=== PATIENT | female | born 1935 | race Caucasian/White ===

== ENCOUNTER → 2018-05-22 11:06 | Outpatient (CLI) | payer MEDICARE, SELFPAY ==
[2018-05-22 11:51] LABS: Erythrocyte Sedimentation Rate 40 mm/hr (0-30)
[2018-05-22 11:54] LABS: Absolute Lymphocyte Count 2.55 X10^3/ul (0.83-4.51); Basophil# 0.01 X10^3/uL; Basophil% 0.2 % (0-1); Eosinophil# 0.06 X10^3/uL; Hematocrit 37.7 % (37-47); Hemoglobin 12.9 g/dl (12.0-15.0); Lymphocyte # 2.55 X10^3/ul (4.0); Lymphocyte % 41.4 % (19-41); Mean Corp Hgb Conc 34.2 g/gl (32-36); Mean Corpuscular Hgb 31.5 pg (27.0-32.0); Mean Platelet Vol. 9.6 fl (6.2-12.0); Monocyte# 0.55 X10^3/uL; Monocyte% 8.9 % (0-10); Neutrophil # 2.98 X10^3/uL (2.7-7.7); Neutrophil % 48.3 % (47-70); Platelet Count 264 K/mm3 (150-450); RBC Distribution Width CV 12.4 % (11.6-14.6); RBC Distribution Width SD 40.5 fl (35.1-43.9); White Blood Count 6.2 K/mm3 (4.4-11.0)
[2018-05-22 11:55] LABS: POSITIVE COUNT NO; POSITIVE DIFFERENTIAL NO; POSITIVE MORPHOLOGY NO
[2018-05-22 12:33] LABS: AST(SGOT) 21 U/L (15-37); Alanine Aminotransfer ALT/SGPT 26 U/L (13-56); Albumin, Serum 3.7 g/dL (3.2-5.0); Alkaline Phosphatase 69 U/L (45-117); Anion Gap 10 (5-15); BUN 23 mg/dL (7-18); BUN/Creat Ratio 23.4 RATIO (10-20); Calcium,Total 9.2 mg/dL (8.5-10.1); Chloride 99 mmol/L (98-107); Creatinine, Serum 0.98 mg/dL (0.55-1.02); EST Glomerular Filtration Rate 58 mL/min (>60); Est Glom Filt Rate - Afr Amer 70 mL/min (>60); Globulin 3.7 g/dL (2.2-4.2); Glucose 140 mg/dL (74-106); Potassium 3.8 mmol/L (3.5-5.1); Protein, Total 7.4 g/dL (6.4-8.2); Sodium Level 137 mmol/L (136-145); Uric Acid 9.6 mg/dL (2.6-6.0)
== END ==
PROVIDERS: Family Provider Student in an Organized Health Care Education/Training Program; PCP Student in an Organized Health Care Education/Training Program; Visit Provider Podiatrist
DX: M10.9 Gout, unspecified (principal); M79.673 Pain in unspecified foot
CPT/HCPCS: 36415; 80053; 84550; 85025; 85652

== ENCOUNTER → 2019-08-30 13:17 | Outpatient (CLI) | payer MEDICARE, SELFPAY ==
--- NOTE | 2019-08-30 13:22 | STEWCON_ITS ---
Reason For Study: HTN, Dyspnea Stress Results Protocol: Dobutamine Stress Echo With Definity Maximum Predicted HR: 137 bpm Target HR: 116 bpm % Maximum Predicted HR: 88 % DurationHeart Rate Stage (mm:ss) (bpm) BP Comment Baseline 57 137/62No Chest Pain; 7 ML Diluted Definity Given DSE 10 MCG 4:46 57 108/60No Chest Pain DSE 20 MCG 3:00 61 122/60No Chest Pain DSE 30 MCG 4:15 121 167/68No Chest Pain; Atropine 0.25 MG IVP Recovery 96 113/57No Chest Pain Stress Duration: 12:01 mm:ss Maximum Stress HR: 121 bpm METS: 1 Baseline Echocardiogram Findings The estimated ejection fraction is 65 %. Stress Echo Wall motion Data Resting WM Intermediate WM Stress WM Resting Wall Motion Wall Motion Stress No regional wall motion No regional wall motion abnormalities noted. abnormalities noted. EKG Data The baseline ECG displays normal sinus rhythm. The patient was titrated from 10 mcg to a maximun of 30 mcg of dobutamine during the stress. The maximum heart rate attained was 134 beats per minute. This was 97% of maximum predicted heart rate. During dobutamine infusion, there were no ST or T wave changes noted to suggest ischemia. No clinical angina was noted. Interpretation Summary The estimated ejection fraction is 65 %. Normal, adequate, dobutamine echocardiogram. Negative for ischemia by EKG and echocardiographic criteria. No anginal symptoms noted. Rare PVCs noted. Appropriate blood pressure response to dobutamine. Test terminated due to the attainment of target heart rate. Final LVEF is 75%. Decreased sensitivity due to poor echo windows requiring Definity agent. Patient tolerated procedure well. No complications. The study was technically difficult. Contrast injection was performed. Ordering Physician: Robles Duran Referring Physician: Nico Gamboa Performed By: Gurmeet Antoine RCS
== END ==
PROVIDERS: Family Provider Student in an Organized Health Care Education/Training Program; PCP Student in an Organized Health Care Education/Training Program; Referring Provider Internal Medicine Cardiovascular Disease; Visit Provider Internal Medicine Cardiovascular Disease
DX: R06.02 Shortness of breath (principal); I10 Essential (primary) hypertension; E78.5 Hyperlipidemia, unspecified
CPT/HCPCS: 93017; 93350; J7040; Q9957; A4216; C8928

== ENCOUNTER 2020-06-05 17:52 | Emergency (ER) | payer MEDICARE, SELFPAY ==
[2020-06-05 17:54] VITALS: BP 154/63; PULSE 72; PULSE 73; RESP 16; RESP 18; TEMP 36.4; O2SAT 96; BMI 27.6
--- NOTE | 2020-06-05 18:16 | EKG12_ITS ---
Test Reason : DYSRHYTHMIA Blood Pressure : / mmHG Vent. Rate : 066 BPM Atrial Rate : 066 BPM P-R Int : 200 ms QRS Dur : 086 ms QT Int : 414 ms P-R-T Axes : 065 002 059 degrees QTc Int : 434 ms Normal sinus rhythm Normal ECG Confirmed by SHAZIA CORNELIUS, ALENA ([id number]), material expeditor RYLIE VELEZ ([id number]) on 06/12/2020 1:11:06 PM Referred By: Confirmed By:KAYLEEN MCCRAY MD
--- NOTE | 2020-06-05 18:27 | ED.DCSUM_ITS ---
- ER Visit Summary Date of Service: 06/05/20 Chief Complaint: Fatigue History of Present Illness: The patient is a 85 F presenting with fatigue. She states this has been ongoing for the past 2 weeks. She has shortness of breath which is worse in the morning and improves throughout the day. She denies chest pain. Denies fever or cough. Denies lightheadedness or syncope. She is currently taking care of her who was just recently discharged from the hospital. She feels that she may be worn out because of this. She denies other complaints. Physical Examination: Vitals are stable. Patient is afebrile. Alert no acute distress. HEENT exam is unremarkable. Neck is supple. Lungs are clear and equal bilaterally. Heart is regular rate and rhythm. Abdomen is soft nontender nondistended. Extremities symmetric edema, normal pulses Skin is warm and dry. No focal neurologic deficit. Remainder of exam is unremarkable. Emergency Department Course and Treatment: EKG is sinus rhythm rate of 66 with no acute ischemic changes. Chest x-ray shows no acute process. Bilateral lower extremity venous Doppler shows no evidence of DVT. CBC, chemistries unremarkable. Urinalysis unremarkable. Troponin is negative. D-dimer negative. Patient was able to ambulate in the ED with a pulse ox of 93% on room air. On reevaluation, patient is resting comfortably. She is advised to follow-up with her primary care physician. Advised return to the ED for worsening complaints. Disposition: Discharge home Impression: Fatigue This note was generated with myTips dictation software. It may contain incorrect words, spelling, and punctuation that were not noted in review of the chart prior to signing ED Disposition - Plan for ED Patient: Referrals: Nico Gamboa DO [Primary Care Provider] -
[2020-06-05 18:57] VITALS: O2SAT 98
--- NOTE | 2020-06-05 19:05 | RAD_ITS ---
STUDY: X-RAY CHEST REASON FOR EXAM: Female, 85 years old. INCREASING FATIGUE AND SOB TECHNIQUE: Single AP portable view of the chest. COMPARISON: EKG leads overlie the chest FINDINGS: The lungs are clear and expanded. There is no demonstrated pleural abnormality. Normal size heart. Normal mediastinum and jazmin. Normal visualized pulmonary arteries. Normal visualized aortic arch and descending thoracic aorta. There is a dextroscoliosis of the thoracic spine. Normal visualized ribs, clavicles, and shoulders. There is no demonstrated abnormality of the visualized soft tissue structures of the upper abdomen. RAD/Chest 1 View (Portable) IMPRESSION: No acute findings, dextroscoliosis Electronically Signed: Bryon Borden MD at 19:20 EDT , Service support ,
--- NOTE | 2020-06-05 19:12 | US_ITS ---
STUDY: VENOUS DOPPLER ULTRASOUND - BILATERAL LOWER EXTREMITIES REASON FOR EXAM: Female, 85 years old. SWOLLEN ANKLES- OFF AND ON FOR YEARS NOT SWOLLEN TODAY PER PT TECHNIQUE: Ultrasound evaluation of the deep vein system to include whalen-scale imaging and compression was performed. Whalen-scale imaging and Doppler sonographic evaluation, including duplex spectral analysis and qualitative color flow sonography, was performed. COMPARISON: None. FINDINGS: RIGHT LEG Common Femoral Vein: Normal compression, spontaneity and augmentation. Normal color Doppler. Common Femoral Vein/Greater Saphenous Junction: Normal compression, spontaneity and augmentation. Normal color Doppler. Deep Femoral Vein: Normal compression, spontaneity and augmentation. Normal color Doppler. Femoral Proximal: Normal compression, spontaneity and augmentation. Normal color Doppler. Femoral Middle: Normal compression, spontaneity and augmentation. Normal color Doppler. Femoral Distal: Normal compression, spontaneity and augmentation. Normal color Doppler. Popliteal Vein: Normal compression, spontaneity and augmentation. Normal color Doppler. Posterior Tibial Vein: Normal compression, spontaneity and augmentation. Normal color Doppler. Peroneal Vein: Normal compression, spontaneity and augmentation. Normal color Doppler. LEFT LEG Common Femoral Vein: Normal compression, spontaneity and augmentation. Normal color Doppler. Common Femoral Vein/Greater Saphenous Junction: Normal compression, spontaneity and augmentation. Normal color Doppler. Deep Femoral Vein: Normal compression, spontaneity and augmentation. Normal color Doppler. Femoral Proximal: Normal compression, spontaneity and augmentation. Normal color Doppler. Femoral Middle: Normal compression, spontaneity and augmentation. Normal color Doppler. Femoral Distal: Normal compression, spontaneity and augmentation. Normal color Doppler. Popliteal Vein: Normal compression, spontaneity and augmentation. Normal color Doppler. Posterior Tibial Vein: Normal compression, spontaneity and augmentation. Normal color Doppler. Peroneal Vein: Normal compression, spontaneity and augmentation. Normal color Doppler. US/Venous Duplex Imag/Aroldo Extrem IMPRESSION: No demonstrated deep venous thrombosis of bilateral lower extremities. Electronically Signed: Jose Booker MD at 20:07 EDT , Service support ,
[2020-06-05] MEDS: Aspirin 81 MG TAB.CHEW 324 MG PO (19:16)
[2020-06-05 19:19] LABS: Absolute Lymphocyte Count 2.48 X10^3/uL (0.83-4.51); Absolute Neutrophil Count 3.6 X10^3/uL (2.0-7.7); Basophil# 0.05 X10^3/uL; Basophil% 0.7 % (0-1); Eosinophil# 0.55 X10^3/uL; Eosinophils% 7.3 % (0-5); Hematocrit 40.1 % (37-47); Hemoglobin 13.6 g/dL (12.0-15.0); Lymphocyte # 2.48 X10^3/ul (4.0); Lymphocyte % 32.8 % (19-41); Mean Corp Hgb Conc 33.9 g/dL (32-36); Mean Corpuscular Hgb 30.7 pg (27.0-32.0); Mean Corpuscular Volume 90.5 fL (81-99); Mean Platelet Vol. 9.5 fl (6.2-12.0); Monocyte# 0.85 X10^3/uL; Monocyte% 11.2 % (0-10); NRBC Flagged by Analyzer 0 % (0-5); Neutrophil % 47.6 % (47-70); Platelet Count 311 K/mm3 (150-450); RBC Distribution Width CV 11.6 % (11.6-14.6); RBC Distribution Width SD 38.5 fl (35.1-43.9); Red Blood Count 4.43 M/mm3 (4.2-5.4); White Blood Count 7.6 K/mm3 (4.4-11.0)
[2020-06-05 19:44] LABS: Anion Gap 5 (5-15); BUN 21 mg/dL (7-18); BUN/Creat Ratio 22.1 RATIO (10-20); Calcium,Total 9.2 mg/dL (8.5-10.1); Chloride 103 mmol/L (98-107); Creatinine, Serum 0.95 mg/dL (0.55-1.02); EST Glomerular Filtration Rate 60 mL/min (>60); Est Glom Filt Rate - Afr Amer 72 mL/min (>60); Estimated Creatinine Clearance 34.86 ml/min; Glucose 103 mg/dL (74-106); Potassium 3.5 mmol/L (3.5-5.1); Sodium Level 139 mmol/L (136-145)
[2020-06-05 19:48] LABS: BNP,B-Type NATRIURETIC PEPTIDE 54.1 pg/mL (0-100)
[2020-06-05 19:58] VITALS: O2SAT 95
[2020-06-05 20:07] VITALS: BP 153/69; PULSE 97; RESP 16; O2SAT 97
[2020-06-05 20:10] LABS: Bacteria 0 SEEN /hpf (None Seen); Mucous, Urine 0 SEEN /hpf (<or=2+); Red Blood Cells-Urine 0 SEEN /hpf (0-5); Squamous Epithelial Cells - UA 0 SEEN /hpf (5-10); White Blood Cells 0 SEEN /hpf (0-5)
[2020-06-05 20:11] LABS: Color, Urine Yellow (Yellow); Glucose, Dipstick Normal (Normal); Ketone-Dipstick Negative (Negative); Leukocyte Esterase-Dipstick 25 /ul (Negative); Nitrite-Dipstick Negative (Negative); Occult Blood-Urine Negative /ul (Negative); Protein-Dipstick Negative (Negative); Specific Gravity, Urine 1.015 (1.002-1.030); Urine Bilirubin Dipstick Negative (Negative); Urine Clarity Clear (Clear); Urine Urobilinogen Normal (Normal)
[2020-06-05 20:42] LABS: D-Dimer Quantitative (DVT/PE) 0.49 FEU/ug/m (0.27-0.49)
[2020-06-05 21:12] VITALS: BP 141/73; PULSE 68; RESP 16; O2SAT 98
--- NOTE | 2020-06-05 21:13 | ED.DEP ---
ED Disposition - Plan for ED Patient: Instructions: ED Weakness [facility] Referrals: Nico Gamboa DO [Primary Care Provider] -
== END 2020-06-05 21:32 | disposition home or self-care (01) ==
LOC: ED 18:25
PROVIDERS: Emergency Provider Emergency Medicine; PCP Student in an Organized Health Care Education/Training Program
DX: R53.83 Other fatigue (principal); R06.00 Dyspnea, unspecified; I10 Essential (primary) hypertension; E78.00 Pure hypercholesterolemia, unspecified; J45.909 Unspecified asthma, uncomplicated; Z79.82 Long term (current) use of aspirin; Z79.899 Other long term (current) drug therapy; M79.89 Other specified soft tissue disorders
CPT/HCPCS: 71045; 80048; 81001; 83880; 84484; 85025; 85379; 93005; 93970; 99285; A4216

== ENCOUNTER → 2023-07-18 | Outpatient (CLI) | payer SELFPAY ==
--- NOTE | 2023-07-18 13:07 | CT_ITS ---
STUDY: CT CHEST WITHOUT CONTRAST REASON FOR EXAM: Female, 88 years old. SCREENING. Cardiac over read examination. RADIATION DOSAGE (If Supplied By Facility): CTDIvol = ( 12.19 ) mGy, DLP = ( 195.04 ) mGycm TECHNIQUE: Transaxial imaging was performed without the administration of intravenous contrast material. Individualized dose optimization techniques were used for this CT. COMPARISON: No relevant priors. FINDINGS: CHEST The lungs are normal. There is no demonstrated pleural abnormality. There are calcifications of the coronary arteries. There are multiple small lymph nodes within the mediastinum, which are normal in size and morphology most compatible with reactive lymph hyperplasia. Normal hilar regions. Normal unenhanced pulmonary arteries. There is atherosclerotic calcification of the aortic arch. There are multi-level degenerative changes of the thoracic spine. Dextroscoliosis. Fatty infiltration of the liver. CT/Limited Chest CT Cardiac Only IMPRESSION: Coronary artery calcification. Electronically Signed: Huang Davis MD at 14:36 EDT ,
--- NOTE | 2023-07-18 16:25 | CCTA_ITS ---
Calcium Scoring Date of Study:: 07/18/23 Indications Indications: Family history of coronary artery disease Coronary Calcium Scoring: High-resolution Computed Tomographic imaging of the chest was performed on [07/18/2023], with particular attention paid to the coronary arteries. Images from the examination were analyzed for the presence and extent of coronary artery calcification , using coronary calcium quantification software. The pat ient tolerated the procedure well and there were no complications. The results of the coronary calcification analysis are provided below. Findings Coronary Artery Left Main (LM): 0 Left Anterior Descending (LAD): 365 Left Circumflex (LCX): 47 Right Coronary Artery (RCA): 474 Total Agatston Score: 886 Percentile Rankinth percentile Calcium Scoring Interpretation: Different methods to categorize the overall amount of coronary plaque. Overall amount CAC SIS Visual of coronary plaque P1 Mild -100 <2 1-2 vessels with mild amount of plaque P2 Moderate 101-300 3-4 1-2 vessels with moderate amount, 3 vessels with mild amount of plaque P3 Severe 301-999 5-7 3 vessels with moderate amount, 1 vessel with severe amount of plaque P4 Extensive >1000 >8 2-3 vessels with severe amount of plaque Calcium Score: Severe: 3 vessels w/moderate amount, 1 vessel w/severe amt of plaque Conclusion: Moderate amount of atherosclerotic plaquing noted especially in the left anterior descending artery and the right coronary artery.
== END | disposition home or self-care (01) ==
LOC: CT 13:05
PROVIDERS: PCP Student in an Organized Health Care Education/Training Program; Referring Provider Student in an Organized Health Care Education/Training Program; Visit Provider Student in an Organized Health Care Education/Training Program
DX: Z13.6 Encounter for screening for cardiovascular disorders (principal); I25.10 Atherosclerotic heart disease of native coronary artery without angina pectoris
CPT/HCPCS: 75571; 76380

== ENCOUNTER → 2023-08-20 | Outpatient (CLI) | payer MEDICARE, SELFPAY ==
--- NOTE | 2023-08-20 09:50 | RAD_ITS ---
STUDY: X-RAY CHEST REASON FOR EXAM: Female, 88 years old. Preprocedural evaluation. TECHNIQUE: Frontal and lateral views of the chest. COMPARISON: May 2020. FINDINGS: Stable cardiomegaly, aortic tortuosity with calcification, mild hyperinflation, postsurgical changes with clips in the left breast and left axilla and marked thoracolumbar scoliosis with diffuse spondylosis. No acute or emergent finding No abnormality of the visualized soft tissue structures of the upper abdomen. RAD/Chest PA and Lateral IMPRESSION: Stable chest with no acute or active cardiopulmonary disease. Electronically Signed: Amarjit Davenport MD at 12:15 EST ,
[2023-08-20 10:44] LABS: Absolute Neutrophil Count 4.1 X10^3/uL (2.0-7.7); Basophil# 0.05 X10^3/uL; Basophil% 0.5 % (0-1); Eosinophil# 0.62 X10^3/uL; Eosinophils% 6.7 % (0-5); Hemoglobin 14.6 g/dL (12.0-15.0); Lymphocyte % 39.9 % (19-41); Mean Corp Hgb Conc 33.2 g/dL (32-36); Mean Corpuscular Hgb 30.5 pg (27.0-32.0); Mean Corpuscular Volume 91.9 fL (81-99); Mean Platelet Vol. 9.9 fl (6.2-12.0); Monocyte# 0.81 X10^3/uL; Monocyte% 8.7 % (0-10); NRBC Flagged by Analyzer 0 % (0-5); Neutrophil # 4.07 X10^3/uL (2.7-7.7); Platelet Count 352 K/mm3 (150-450); RBC Distribution Width CV 12.6 % (11.6-14.6); RBC Distribution Width SD 42.6 fl (35.1-43.9); Red Blood Count 4.79 M/mm3 (4.2-5.4); White Blood Count 9.3 K/mm3 (4.4-11.0)
[2023-08-20 10:57] LABS: Anion Gap 8 (5-15); BUN 24 mg/dL (7-18); BUN/Creat Ratio 24.6 RATIO (10-20); Calcium,Total 9.4 mg/dL (8.5-10.1); Chloride 98 mmol/L (98-107); Creatinine, Serum 0.98 mg/dL (0.55-1.02); EST Glomerular Filtration Rate 57 mL/min (>60); Est Glom Filt Rate - Afr Amer 69 mL/min (>60); Glucose 129 mg/dL (74-106); Potassium 4.2 mmol/L (3.5-5.1); Sodium Level 137 mmol/L (136-145)
--- OUTSIDE RECORDS SUMMARY | 2023-10-03 15:24 | XMS RPT_ITS | CCD ---
Author Name Unknown Address [id number] [place] [address] Organization [facility] Care Team Providers Care Marketing Director Assisted Living Name Role Phone Nico Vargas DO Primary Care Provider NICO VARGAS DO Primary Care Physician ARIEL YU DO Attending Unavailable NICO VARGAS DO Primary Care Unavailable Nico Vargas DO Primary Care Provider NICO VARGAS Referring Unavailable VARGAS, NICO L Primary Care Unavailable ZURAWICK, MACIEL Attending Unavailable VARGAS, NICO L Primary Care Unavailable VARGAS, NICO L Primary Care Unavailable VARGAS, NICO L Attending Unavailable BARON, MACIEL Attending Unavailable VARGAS, NICO L Primary Care Unavailable VARGAS, NICO L Primary Care Unavailable ZURAWICK, MACIEL Referring Unavailable VARGAS, NICO L Primary Care Unavailable ZURAWICK, MACIEL Referring Unavailable VARGAS, NICO L Primary Care Unavailable VARGAS, NICO L Referring Unavailable VARGAS, NICO L Primary Care Unavailable ZURAWICK, MACIEL Referring Unavailable ZURAWICK, MACIEL Referring Unavailable VARGAS, NICO L Primary Care Unavailable ZURAWICK, MACIEL Referring Unavailable VARGAS, NICO L Primary Care Unavailable VARGAS, NICO L Primary Care Unavailable VARGAS, NICO L Attending Unavailable VARGAS, NICO L Primary Care Unavailable ZURAWICK, MACIEL Attending Unavailable ZURAWICK, MACIEL Attending Unavailable VARGAS, NICO L Primary Care Unavailable ZURSHAUNCK, MACIEL Referring Unavailable VARGAS, NICO L Primary Care Unavailable CAROL GARCIA Attending Unavailable VARGAS, NICO Fran Primary Care Unavailable CAROL GARCIA Referring Unavailable VARGAS, NICO Fran Primary Care Unavailable VARGAS, NICO L Attending Unavailable NICO VARGAS Primary Care Unavailable NICO VARGAS Referring Unavailable NICO VARGAS Primary Care Unavailable Allergies Allergy Classification Reported Allergen(s) Allergy Type Date of Onset Reaction(s) Facility (20 sources) quinapril; Translations: [QUINAPRIL] Drug Allergy 01-13-2012 Cough [facility] Work Phone: (20 sources) Simvastatin; Translations: [simvastatin] Drug Allergy 08-20-2007 Intolerance [facility] Work Phone: Medications Current Medications Medication Drug Class(es) Dates Sig (Normalized) Sig (Original) [id number] 200 actuat albuterol 0.09 mg/actuat metered dose inhaler (20 sources) beta2-Adrenergic Agonist Start: 05-22-2023 take 2 puff(s) by inhalation every four hours as needed for wheezing Proventil HFA MDI (90 mcg/inh) inhalation aerosol 2 puff(s), Inhalation, q4h, PRN as needed for wheezing, # 6.7 gram(s), 0 Refill(s) Start Date: 05/22/23 Status: Ordered Completed/Discontinued Medications Medication Drug Class(es) Dates Sig (Normalized) Sig (Original) aspirin 81 mg delayed release oral tablet (20 sources) Platelet Aggregation Inhibitor, Nonsteroidal Anti-inflammatory Drug take 1 tablet by mouth once daily aspirin, enteric coated (ASPIRIN, ENTERIC COATED) 81 mg EC tablet Take 81 mg by mouth once daily. 0 Active Problems Active Problems Problem Classification Problem Date Documented Da te Episodic/Chronic Abdominal pain (1 source) Pelvic and perineal pain; Translations: [Pelvic and perineal pain] Onset: 05-22-2023 Episodic Anxiety disorders (20 sources) Generalized anxiety disorder; Translations: [Generalized anxiety disorder] Onset: 01-19-2019 01-19-2019 Chronic Chronic kidney disease (3 sources) Chronic kidney disease stage 3A ; Translations: [Stage 3a chronic kidney disease (HCC)] Onset: 09-02-2023 09-02-2023 Chronic Coronary atherosclerosis and other heart disease (6 sources) Coronary atherosclerosis; Translations: [Atherosclerotic heart disease of [place] coronary artery without angina pectoris] Onset: 09-02-2023 09-01-2023 Chronic Diabetes mellitus with complications (6 sources) Hyperlipidemia; Translations: [Type 2 diabetes mellitus with other specified complication] Onset: 09-02-2023 09-02-2023 Chronic Diabetes mellitus without complication (20 sources) Type 2 diabetes mellitus without complication; Translations: [Type 2 diabetes mellitus without complications] Onset: 07-22-2018 Chronic Disorders of lipid metabolism (20 sources) Pure hypercholesterolem ia; Translations: [Pure hypercholesterolem ia, unspecified] Onset: 12-10-2005 Chronic Essential hypertension (20 sources) Benign essential hypertension; Translations: [Essential (primary) hypertension] Onset: 12-10-2005 Chronic Gout and other crystal arthropathies (20 sources) Gout; Translations: [Gout, unspecified] Onset: 07-22-2018 07-22-2018 Chronic Heart valve disorders (20 sources) Mitral valve disorder; Translations: [Rheumatic mitral valve disease, unspecified] Onset: 07-22-2018 07-22-2018 Chronic Mood disorders (20 sources) Dysthymia; Translations: [Dysthymic disorder] Onset: 07-22-2018 07-22-2018 Chronic Nonmalignant breast conditions (2 sources) Lump in upper inner quadrant of left breast; Translations: [Unspecified lump in the left breast, upper inner quadrant] 08-27-2023 Episodic Nutritional deficiencies (20 sources) Vitamin D deficiency; Translations: [Vitamin D deficiency, unspecified] Onset: 08-28-2021 08-28-2021 Chronic Other circulatory disease (3 sources) Disorder of carotid artery; Translations: [Disorder of arteries and arterioles, unspecified] Onset: 09-02-2023 09-02-2023 Chronic Other connective tissue disease (3 sources) Pain in right foot; Translations: [Pain in right foot] Episodic Other connective tissue disease (1 source) Pain in right foot; Translations: [Foot pain, right] Onset: 09-24-2023 Episodic Other lower respiratory disease (2 sources) Dyspnea; Translations: [Shortness of breath] Episodic Other lower respiratory disease (1 source) Cough; Translations: [Acute cough] Episodic Other non-traumatic joint disorders (20 sources) Arthropathy of multiple joints; Translations: [Arthropathy, unspecified] Onset: 07-22-2018 07-22-2018 Chronic Other skin disorders (1 source) Mass of thoracic structure; Translations: [Localized swelling, mass and lump, trunk] 09-01-2023 Episodic Residual codes; unclassified (20 sources) Obstructive sleep apnea syndrome; Translations: [Obstructive sleep apnea (adult) (pediatric)] Onset: 06-26-2013 04-08-2017 Chronic Urinary tract infections (1 source) Recurrent urinary tract infection; Translations: [Urinary tract infection, site not specified] Episodic Past or Other Problems Problem Classification Problem Date Documented Da te Episodic/Chronic Allergic reactions (2 sources) Contact dermatitis; Translations: [Unspecified contact dermatitis, unspecified cause] Onset: 03-26-2023 Episodic Cancer of breast (20 sources) History of malignant neoplasm of breast; Translations: [Personal history of malignant neoplasm of breast] Onset: 08-07-2015 06-12-2020 Episodic Cardiac dysrhythmias (20 sources) Palpitations; Translations: [Palpitations] Onset: 02-12-2021 02-12-2021 Episodic Conditions associated with dizziness or vertigo (20 sources) Lightheadedness; Translations: [Dizziness and giddiness] Onset: 02-12-2021 02-12-2021 Episodic Malaise and fatigue (20 sources) Fatigue; Translations: [Other fatigue] Onset: 08-28-2021 08-28-2021 Episodic Other connective tissue disease (20 sources) Swelling of lower limb; Translations: [Other specified soft tissue disorders] Onset: 08-02-2020 08-02-2020 Episodic Other ear and sense organ disorders (20 sources) Eczema of external auditory canal; Translations: [Acute eczematoid otitis externa, bilateral] Onset: 01-19-2019 01-19-2019 Episodic Other inflammatory condition of skin (20 sources) Intertrigo; Translations: [Erythema intertrigo] Onset: 08-02-2020 08-02-2020 Episodic Other lower respiratory disease (20 sources) Dyspnea on exertion; Translations: [Other forms of dyspnea] Onset: 02-04-2023 Episodic Other lower respiratory disease (1 source) Shortness of breath; Translations: [SOB (shortness of breath)] Onset: 02-24-2023 Episodic Other lower respiratory disease (1 source) Other forms of dyspnea; Translations: [ELIZABETH (dyspnea on exertion)] Onset: 02-04-2023 Episodic Other non-traumatic joint disorders (13 sources) Shoulder pain; Translations: [Pain in right shoulder] Onset: 08-02-2020 08-02-2020 Episodic Other non-traumatic joint disorders (20 sources) Pain in right knee; Translations: [Pain in joint, lower leg] Onset: 08-28-2021 08-28-2021 Episodic Other non-traumatic joint disorders (17 sources) Pain in right shoulder; Translations: [Pain in joint, shoulder region] Onset: 08-02-2020 08-02-2020 Episodic Other non-traumatic joint disorders (10 sources) Chronic pain of right upper limb; Translations: [Pain in right shoulder] Onset: 05-20-2023 05-20-2023 Episodic Other screening for suspected conditions (not mental disorders or infectious disease) (20 sources) Thyroid function tests abnormal; Translations: [Abnormal results of thyroid function studies] Onset: 01-19-2019 01-19-2019 Episodic Skin and subcutaneous tissue infections (3 sources) Cellulitis of skin; Translations: [Cellulitis, unspecified] Onset: 01-06-2023 Episodic Spondylosis; intervertebral disc disorders; other back problems (10 sources) Chronic thoracic back pain; Translations: [Pain in thoracic spine] Onset: 05-20-2023 05-20-2023 Episodic Results Test Name Value Interpretation Reference Range Facil ity Vital Signs Date Time Vital Sign Value Performing Clinician Facility 09-01-2023 10:33-0500 Body temperature 97 [degF] Nico Vargas DO Work Phone: [facility] 09-01-2023 10:33-0500 Body weight 66.68 kg Nico Vargas DO Work Phone: [facility] 09-01-2023 10:33-0500 Diastolic blood pressure 60 mm[Hg] Nico Vargas DO Work Phone: [facility] 09-01-2023 10:33-0500 Heart rate 60 /min Nico Vargas DO Work Phone: [facility] 09-01-2023 10:33-0500 Respiratory rate 20 /min Nico Vargas DO Work Phone: [facility] 09-01-2023 10:33-0500 Systolic blood pressure 100 mm[Hg] Nico Vargas DO Work Phone: [facility] 08-27-2023 12:57-0500 Body weight 68.04 kg Maciel Reynaga MATERIALS CLERK.SLD TEACHER Work Phone: [facility] 08-27-2023 12:57-0500 Diastolic blood pressure 62 mm[Hg] Maciel Reynaga MATERIALS CLERK.SLD TEACHER Work Phone: [facility] 08-27-2023 12:57-0500 Heart rate 72 /min Maciel Reynaga MATERIALS CLERK.SLD TEACHER Work Phone: [facility] 08-27-2023 12:57-0500 Respiratory rate 12 /min Maciel Reynaga MATERIALS CLERK.SLD TEACHER Work Phone: [facility] 08-27-2023 12:57-0500 Systolic blood pressure 136 mm[Hg] Maciel Reynaga MATERIALS CLERK.SLD TEACHER Work Phone: [facility] 05-22-2023 06:01-0400 Body height 157.5 cm ARIEL REICHFIELD DO [facility] 05-22-2023 06:01-0400 Body temperature 97.7 [degF] ARIEL REICHFIELD DO [facility] 05-22-2023 06:01-0400 Body weight 66 kg ARIEL REICHFIELD DO [facility] 05-22-2023 06:01-0400 Diastolic Blood Pressure Non-Invasive 72 1 ARIEL REICHFIELD DO [facility] 05-22-2023 06:01-0400 Heart rate 76 /min ARIEL REICHFIELD DO [facility] 05-22-2023 06:01-0400 Respiratory rate 20 /min ARIEL REICHFIELD DO [facility] 05-22-2023 06:01-0400 Systolic Blood Pressure Non-Invasive 144 1 ARIEL REICHFIELD DO [facility] 05-20-2023 09:07-0400 Body temperature 97.3 [degF] Nico Vargas DO Work Phone: [facility] 05-20-2023 09:07-0400 Body weight 67.13 kg Nico Vargas DO Work Phone: [facility] 05-20-2023 09:07-0400 Diastolic blood pressure 60 mm[Hg] Nico Vargas DO Work Phone: [facility] 05-20-2023 09:07-0400 Heart rate 60 /min Nico Vargas DO Work Phone: [facility] 05-20-2023 09:07-0400 Respiratory rate 20 /min Nico Vargas DO Work Phone: [facility] 05-20-2023 09:07-0400 Systolic blood pressure 100 mm[Hg] Nico Vargas DO Work Phone: [facility] 03-26-2023 13:07-0400 Diastolic blood pressure 58 mm[Hg] Carol Haagen MATERIALS CLERK.SLD TEACHER Work Phone: [facility] 03-26-2023 13:07-0400 Heart rate 66 /min Carol Haagen MATERIALS CLERK.SLD TEACHER Work Phone: [facility] 03-26-2023 13:07-0400 Respiratory rate 16 /min Carol Haagen MATERIALS CLERK.SLD TEACHER Work Phone: [facility] 03-26-2023 13:07-0400 SaO2% (BldA) [Mass fraction] 96 % Carol Haagen MATERIALS CLERK.SLD TEACHER Work Phone: [facility] 03-26-2023 13:07-0400 Systolic blood pressure 106 mm[Hg] Carol Haagen MATERIALS CLERK.SLD TEACHER Work Phone: [facility] 01-06-2023 09:15-0400 Diastolic blood pressure 58 mm[Hg] Maciel Reynaga MATERIALS CLERK.SLD TEACHER Work Phone: [facility] 01-06-2023 09:15-0400 Systolic blood pressure 110 mm[Hg] Maciel Reynaga MATERIALS CLERK.SLD TEACHER Work Phone: [facility] 01-06-2023 09:10-0400 Body height 157.5 cm Maciel Reynaga MATERIALS CLERK.SLD TEACHER Work Phone: [facility] 01-06-2023 09:10-0400 Body weight 68.04 kg Maciel Reynaga MATERIALS CLERK.SLD TEACHER Work Phone: [facility] 01-06-2023 09:10-0400 Heart rate 70 /min Maciel Reynaga MATERIALS CLERK.SLD TEACHER Work Phone: [facility] 01-06-2023 09:10-0400 Respiratory rate 16 /min Maciel Reynaga MATERIALS CLERK.SLD TEACHER Work Phone: [facility] 01-06-2023 09:10-0400 SaO2% (BldA) [Mass fraction] 93 % Maciel Reynaga MATERIALS CLERK.SLD TEACHER Work Phone: [facility] 01-01-2023 09:06-0400 Body temperature 97.59 [degF] Maciel Reynaga MATERIALS CLERK.SLD TEACHER Work Phone: [facility] 01-01-2023 09:06-0400 Body weight 68.22 kg Maciel Reynaga MATERIALS CLERK.SLD TEACHER Work Phone: [facility] 01-01-2023 09:06-0400 Diastolic blood pressure 68 mm[Hg] Maciel Reynaga MATERIALS CLERK.SLD TEACHER Work Phone: [facility] 01-01-2023 09:06-0400 Heart rate 76 /min Maciel Reynaga MATERIALS CLERK.SLD TEACHER Work Phone: [facility] 01-01-2023 09:06-0400 Respiratory rate 16 /min Maciel Reynaga MATERIALS CLERK.SLD TEACHER Work Phone: [facility] 01-01-2023 09:06-0400 Systolic blood pressure 126 mm[Hg] Maciel Reynaga MATERIALS CLERK.SLD TEACHER Work Phone: [facility] 08-07-2022 09:04-0500 Body temperature 96.8 [degF] Nico Vargas DO Work Phone: [facility] 08-07-2022 09:04-0500 Body weight 68.04 kg Nico Vargas DO Work Phone: [facility] 08-07-2022 09:04-0500 Diastolic blood pressure 70 mm[Hg] Nico Vargas DO Work Phone: [facility] 08-07-2022 09:04-0500 Heart rate 68 /min Nico Vargas DO Work Phone: [facility] 08-07-2022 09:04-0500 Respiratory rate 16 /min Nico Vargas DO Work Phone: [facility] 08-07-2022 09:04-0500 Systolic blood pressure 138 mm[Hg] Nico Vargas DO Work Phone: [facility] 04-15-2022 10:08-0400 Body weight 66.95 kg Maciel Zurawick MATERIALS CLERK.SLD TEACHER Work Phone: [facility] 04-15-2022 10:08-0400 Diastolic blood pressure 62 mm[Hg] Maciel Zurawick MATERIALS CLERK.SLD TEACHER Work Phone: [facility] 04-15-2022 10:08-0400 Heart rate 72 /min Maciel Zurawick MATERIALS CLERK.SLD TEACHER Work Phone: [facility] 04-15-2022 10:08-0400 Respiratory rate 14 /min Maciel Zurawick MATERIALS CLERK.SLD TEACHER Work Phone: [facility] 04-15-2022 10:08-0400 Systolic blood pressure 110 mm[Hg] Maciel Zurawick MATERIALS CLERK.SLD TEACHER Work Phone: [facility] 02-04-2022 09:46-0400 Body temperature 97 [degF] Nico Vargas DO Work Phone: [facility] 02-04-2022 09:46-0400 Body weight 67.59 kg Nico Vargas DO Work Phone: [facility] 02-04-2022 09:46-0400 Diastolic blood pressure 60 mm[Hg] Nico Vargas DO Work Phone: [facility] 02-04-2022 09:46-0400 Heart rate 64 /min Nico Vargas DO Work Phone: [facility] 02-04-2022 09:46-0400 Respiratory rate 16 /min Nico Vargas DO Work Phone: [facility] 02-04-2022 09:46-0400 Systolic blood pressure 110 mm[Hg] Nico Vargas DO Work Phone: [facility] Encounters Encounter Date Encounter Type Care Provider Facility Start: 09-24-2023 End: 09-25-2023 ambulatory NICO VARGAS Facility:[facility] Start: 09-04-2023 Telephone encounter Maciel nichols MATERIALS CLERK.SLD TEACHER Work Phone: [facility] [place] Procedures Date Procedure Procedure Detail Performing Clinician Start: 02-24-2023 Myocardial spect mul tiple studies Maciel Reynaga MATERIALS CLERK.SLD TEACHER Work Phone: Start: 01-01-2023 Urnls dip stick/tabl et rgnt auto w/o microscopy Maciel Reynaga MATERIALS CLERK.SLD TEACHER Work Phone: Plan of Treatment Date Care Activity Detail Author Start: 05-15-2027 Urine microalbumin profile [facility] Start: 08-27-2024 RSV Vaccine (1 - 1-d ose 60+ series) RSV Vaccine (1 - 1-dose 60+ series) [facility] Immunizations Immunization Date Immunization Notes Care Provider Meagan ratliff 07-16-2022 influenza virus vacc ine, unspecified formulation Nico Vargas DO Work Phone: [facility] 07-03-2020 influenza, high dose seasonal, preservative-free Nico Vargas DO Work Phone: [facility] Work Phone: 06-23-2019 influenza, high dose seasonal, preservative-free Nico Vargas DO Work Phone: [facility] 10-12-2018 zoster vaccine recombinant Nico Vargas DO Work Phone: [facility] Work Phone: 08-12-2018 zoster vaccine recombinant Nico Vargas DO Work Phone: [facility] Work Phone: 06-23-2018 influenza, high dose seasonal, preservative-free Nico Vargas DO Work Phone: [facility] 05-15-2017 tetanus toxoid, redu jessi diphtheria toxoid, and acellular pertussis vaccine, adsorbed Nico Vargas DO Work Phone: [facility] 05-06-2017 influenza, high dose seasonal, preservative-free Nico Vargas DO Work Phone: [facility] 08-23-2015 pneumococcal conjuga te vaccine, 13 valent Nico Vargas DO Work Phone: [facility] Work Phone: 06-21-2015 influenza, high dose seasonal, preservative-free Nico Vargas DO Work Phone: [facility] 07-15-2014 influenza, seasonal, injectable Nico Vargas DO Work Phone: [facility] 07-15-2014 Seasonal, trivalent, recombinant, injectable influenza vaccine, preservative free Nico Vargas DO Work Phone: [facility] 06-22-2013 influenza virus vacc ine, unspecified formulation Nico Vargas DO Work Phone: [facility] 02-05-2013 zoster vaccine, live Nico Vargas DO Work Phone: [facility] Work Phone: 06-22-2012 influenza virus vacc ine, unspecified formulation Nico Vargas DO Work Phone: [facility] Work Phone: 07-07-2006 tetanus and diphther ia toxoids, adsorbed, preservative free, for adult use (2 Lf of tetanus toxoid and 2 Lf of diphtheria toxoid) Nico Vargas DO Work Phone: [facility] 09-22-2004 pneumococcal polysaccharide vaccine, 23 guillermina Vargas DO Work Phone: [facility] Work Phone: Payers Date Payer Category Payer Medicare A[employer] MEDICARE A ETNA MEDICARE PPO [id number] 2021-Present [phone] [address] [place] [address] PPO [id number] 2021 Medicare A[employer] MEDICARE A ETNA MEDICARE PPO [id number] 2021-Present [phone] [address] [place] [address] PPO [id number] 2021 Private Health Insurance 101 [id number] 2011 Medicare AETNA MEDICARE A ETNA MEDICARE PPO [id number] 2011-Present [phone] [address] [place] [address] PPO [id number] 1935 Unknown [id number] Social History Date Type Detail Facility [facility]: [facility] Start: 08-28-2021 End: 09-02-2023 Alcohol intake Current non-drinker of alcohol (finding) [facility] Start: 1935 Sex Assigned At Female C [facility] Start: 01-25-2022 End: 08-07-2022 Exposure to SARS-CoV-2 (event) Not sure [facility] Work Phone: Start: 06-24-2011 Tobacco use and exposure Smokeless tobacco non-user [facility] Start: 02-04-2023 End: 03-26-2023 History of Social function [facility] Start: 02-04-2023 End: 03-26-2023 Tobacco use panel [facility] Adult Depression Screening Assessment 0 [facility] Start: 06-22-2019 Gender identity Identifies as female gender (finding) [facility] Medical Equipment Procedure Code Equipment Code Equipment Origin al Text Equipment Identifier Dates Start: 04-15-2017 End: 03-31-2023 Functional Status Date Assessment Result Facility [facility]-22-2023 [facility] Functional Status Standard Safet y ID band on, Allergy Band on, Call device within reach, Bed in low position, Safety level maintained [facility] Mental Status Date Assessment Result Facility 05-22-2023 Mental Status Orientation Oriented x 4 [facility] 05-22-2023 Mental Status [facility] Clinical Notes 08-02-2020 to 09-24-2023 Telephone Encounter - Lauren Barragan Ma - 09/04/2023 3:25 PM ESTTelephone Encounter - Maciel Reynaga APRN.CNP - 09/04/2023 3:23 PM Nico Garcia DO - 09/02/2023 7:45 AM EST Note Date & Type Note Facility 09-24-2023 Note HNO ID: [id number] Author: Hanna Denise RT(R) Service: Radiology Author Type: Technologist Type: Progress Notes Filed: 09/24/2023 2:58 PM Note Text: Radiology Service Progress Note PATIENT NAME: Martha Hung DATE OF SERVICE: September 24, 2023 TIME: 2:50 PM PATIENT IDENTITY VERIFICATION COMPLETED USING TWO (2) IDENTIFIERS: Name and Date of confirmed by patient verbally. FALL SCREENING: Has the patient had 2 falls in the last year or 1 fall with injury or currently using an Ambulatory Assistive Device (Walker, Cane, Wheelchair, Crutches, etc.)? No PATIENT GENDER DATA: Female. status: : No status: NO. PATIENT RELEVANT IMPLANT DATA REVIEWED: Not Applicable RADIOLOGY DEPARTMENT: General X-ray: Exam(s) Completed: Lower Extremity X-Ray(s): Ankle, Left PERIPHERAL IV DATA: Not applicable SIGNED BY: RT Christos(R) September 24, 2023 2:50 PM [facility] 09-24-2023 Note HNO ID: [id number] Author: Maciel Reynaga APRN.SLD TEACHER Service: ? Author Type: Nurse Practitioner Type: Progress Notes Filed: 09/24/2023 3:05 PM Note Text: Chief Complaint Patient presents with: lft foot pain: Started last Friday , feels like gout HPI Martha Hung is a 88 year old female who presents here today for Above Complaints. Martha is an established patient of Dr. Vargas, and myself. Concerns today... Gout/ankle flare-up --- L foot/ankle swelling, pain, mild redness, and slightly warm to touch x 5 days. Minimal relief with ice and elevation. Denies any fall or injury. Hx of gout to numerous joints. Last uric acid was done 3 years ago and was elevated significantly. Pt is not on any allopurinol or preventative medications for gout. Last flare up was > 1 year ago per pt. Leaving for [place] for a few months in about 2 weeks. Does have follow-up with cardiology prior to leaving. No new symptoms since recent cardiac stent was placed last month. Has started to return to minimal routine exercise weekly. No other concerns or complaints. Past medical history, appointments, medications, allergies reviewed. Previous Medical History PAST MEDICAL HISTORY Diagnosis Date Acute, but ill-defined, cerebrovascular disease 1990 Advance care planning 08/07/2022 Will to help Cancer (HCC) Depression DM (diabetes mellitus) (HCC) 07/2016 DM (diabetes mellitus) (HCC) DTFB///BENIGN FANTA SKIN LEG 03/30/2008 Essential hypertension, benign Hemorrhage of gastrointestinal tract, unspecified Internal hemorrhoids without mention of complication Malignant neoplasm of female breast (HCC) 04/03/2009 Obstructive sleep apnea Occlusion and stenosis of carotid artery without mention of cerebral infarction 40% left Other and unspecified hyperlipidemia Personal history of other diseases of circulatory system 12/10/2005 Previous Surgical History PAST SURGICAL HISTORY Procedure Laterality Date COLONOSCOPY FLX DX W/COLLJ SPEC WHEN PFRMD 04/24/2006 Colonoscopy LIG/TRNSXJ FLP TUBE ABDL/VAG APPR UNI/BI Tubal ligation MAST RAD W/PECTORAL MUSCLES AXILLARY LYMPH NODES 04/21/2009 left breast due to cancer. PAST SURGICAL HISTORY OF back surgery STENT - CORONARY Right 08/28/2023 x 2, right coronary artery TONSILLECTOMY AND ADENOIDECTOMY Tonsil/adenoidectomy TOTAL ABDOMINAL HYSTERECT W/WO RMVL TUBE OVARY Hysterectomy, PRANAV Family History FAMILY HISTORY Problem Relation Age of Onset Diabetes Mother Heart Mother mi other (leg ampt) Mother Heart Father mi Hypertension Sister x 2 Patient Allergies ALLERGIES Allergen Reactions Quinapril Cough Zocor [Simvastatin] Intolerance mucsle pain Current Medications Current Outpatient Medications on File Prior to Visit Medication Sig clopidogrel (PLAVIX) 75 mg tablet Take 75 mg by mouth once daily. clonazePAM (KLONOPIN) 0.5 mg tablet Take 1 tablet by mouth two times a day as needed for anxiety for up to 30 days. rosuvastatin (CRESTOR) 10 mg tablet Take 1 tablet by mouth daily at bedtime. losartan (COZAAR) 100 mg tablet Take 1 tablet by mouth once daily. carvedilol (COREG) 25 mg tablet Take 1 tablet by mouth twice daily. NIFEdipine ER (PROCARDIA XL) 60 mg 24 hr tablet Take 1 tablet by mouth twice daily. citalopram (CELEXA) 20 mg tablet Take 1 tablet by mouth once daily. torsemide (DEMADEX) 20 mg tablet Take 2 tablets by mouth once daily. Take with 10 mg tablet in the am to equal 50 mg once daily. blood sugar diagnostic (GeaComTOUCH VERIO TEST STRIPS) test strip Test blood sugar(s) 2 times daily. Dx: Type 2 DM - Uncontrolled E11.65 Insulin: No cloNIDine HCl (CATAPRES) 0.2 mg tablet Take 1 tablet by mouth twice daily. nystatin (MYCOSTATIN) cream Apply to affected area twice daily. For fungal rash meloxicam (MOBIC) 15 mg tablet Take 1 tablet by mouth once daily. As needed for pain, Take with food. predniSONE (DELTASONE) 20 mg tablet Take 1 tablet by mouth once daily. As needed for gout flare up Lancets (GeaComTOUCH ULTRASOFT LANCETS) lancets Test blood sugar(s) 2 times daily. Dx: Type 2 DM - Uncontrolled E11.65 , Insulin: No (Patient taking differently: Test blood sugar(s) 2 times daily. Dx: Type 2 DM - Uncontrolled E11.65 , Insulin: No Once weekly) torsemide (DEMADEX) 10 mg tablet Take 1 tablets once daily with 40 mg to total 50 mg a day metroNIDAZOLE 1 % gel Apply 1 application to affected area twice daily. albuterol HFA (PROAIR HFA) 90 mcg/actuation inhaler Inhale 2 Puffs as instructed every 6 hours as needed for Wheezing/Shortness of Breath. FOLIC ACID/MULTIVIT-MIN/LUTEIN (CENTRUM SILVER ORAL) Take by mouth. aspirin, enteric coated (ASPIRIN, ENTERIC COATED) 81 mg EC tablet Take 81 mg by mouth once daily. COMPOUNDED PRESCRIPTION MASTECTOMY LEFT BREAST PROSTHESIS DX C50.919 ONE FORM LEISURE BREAST FORM ONE FORM MASTECTOMY BRAS 12 EACH WITH REFILLS FOR ONE YEAR cyanocobal (more content not included)... [facility] 09-04-2023 Miscellaneous Notes Pt notified. Lauren Barragan Ma This is also normal. No mass found. No signs of lymph nodes enlarged. Maciel Reynaga APRN.CNP Pt notified. She is asking about the US results of chest as well. Looks like that was scanned in yesterday but not addressed. Please reivew ( attached below). [facility] External Imaging - Ultrasound [ID [id number]] Please call patient and let her know that mammogram results show no concerns or evidence of malignancy. Continue with the recommended 1 year screening mammograms. Take care, Maciel Reynaga APRN.CNP [facility] External Imaging - Mammography [ID [id number]] Please review results and notify pt. Lauren Barragan Ma documented in this encounter [facility] 09-02-2023 Note HNO ID: [id number] Author: Nico Vargas, DO Service: ? Author Type: Physician Type: Progress Notes Filed: 09/02/2023 7:54 AM Note Text: CC: Martha Hung is a 88 year old female who presents to the office for hospital follow up HPI: She was recently at [facility] for symptoms of shortness of breath and chest pain that began on 08/28/23. She was seen in the EMERGENCY DEPARTMENT and evaluated, no elevated troponins but with some ECG changes. She was found to have multi vessel CAD changes on cardiac catherization and she had 2 drug eluting stents placed to the right coronary artery . She does also have 70% atherosclerosis of the LAD artery and the left artery with 30-50% atherosclerosis changes. She was started on Plavix with her ASA 81 mg and increased dose of Crestor to 10 mg a day. She has started these medications over the last few days. She is now home and feels fatigued but overall doing well. Mood is stable. She has support from her Will. She is planning on leaving for [place] on 10/09. She has had a lump in her left chest wall area at the area of previous mastectomy. She was supposed to have diagnostic mammogram on right and US on the left side. No other symptoms PAST MEDICAL HISTORY Diagnosis Date Acute, but ill-defined, cerebrovascular disease 1990 Advance care planning 08/07/2022 Will to help Cancer (HCC) Depression DM (diabetes mellitus) (HCC) 07/2016 DM (diabetes mellitus) (HCC) DTFB///BENIGN FANTA SKIN LEG 03/30/2008 Essential hypertension, benign Hemorrhage of gastrointestinal tract, unspecified Internal hemorrhoids without mention of complication Malignant neoplasm of female breast (HCC) 04/03/2009 Obstructive sleep apnea Occlusion and stenosis of carotid artery without mention of 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 PAST SURGICAL HISTORY OF back surgery TONSILLECTOMY AND ADENOIDECTOMY Tonsil/adenoidectomy TOTAL ABDOMINAL HYSTERECT W/WO RMVL TUBE OVARY Hysterectomy, PRANAV Current Outpatient Medications Medication Sig clopidogrel (PLAVIX) 75 mg tablet Take 75 mg by mouth once daily. losartan (COZAAR) 100 mg tablet Take 1 tablet by mouth once daily. carvedilol (COREG) 25 mg tablet Take 1 tablet by mouth twice daily. NIFEdipine ER (PROCARDIA XL) 60 mg 24 hr tablet Take 1 tablet by mouth twice daily. torsemide (DEMADEX) 20 mg tablet Take 2 tablets by mouth once daily. Take with 10 mg tablet in the am to equal 50 mg once daily. blood sugar diagnostic (ONETOUCH VERIO TEST STRIPS) test strip Test blood sugar(s) 2 times daily. Dx: Type 2 DM - Uncontrolled E11.65 Insulin: No cloNIDine HCl (CATAPRES) 0.2 mg tablet Take 1 tablet by mouth twice daily. nystatin (MYCOSTATIN) cream Apply to affected area twice daily. For fungal rash meloxicam (MOBIC) 15 mg tablet Take 1 tablet by mouth once daily. As needed for pain, Take with food. predniSONE (DELTASONE) 20 mg tablet Take 1 tablet by mouth once daily. As needed for gout flare up Lancets (ONETOUCH ULTRASOFT LANCETS) lancets Test blood sugar(s) 2 times daily. Dx: Type 2 DM - Uncontrolled E11.65 , Insulin: No (Patient taking differently: Test blood sugar(s) 2 times daily. Dx: Type 2 DM - Uncontrolled E11.65 , Insulin: No Once weekly) torsemide (DEMADEX) 10 mg tablet Take 1 tablets once daily with 40 mg to total 50 mg a day fluticasone (FLONASE) 50 mcg/actuation nasal spray Use 2 Sprays in each nostril once daily. Rinse mouth after use. (Patient taking differently: Use 2 Sprays in each nostril once daily. Rinse mouth after use. Uses as needed) metroNIDAZOLE 1 % gel Apply 1 application to affected area twice daily. albuterol HFA (PROAIR HFA) 90 mcg/actuation inhaler Inhale 2 Puffs as instructed every 6 hours as needed for Wheezing/Shortness of Breath. prednisoLONE acetate (PRED FORTE, ECONOPRED PLUS) 1 % ophthalmic suspension Use 3 Drops in both eyes three times daily as needed. FOLIC ACID/MULTIVIT-MIN/LUTEIN (CENTRUM SILVER ORAL) Take by mouth. aspirin, enteric coated (ASPIRIN, ENTERIC COATED) 81 mg EC tablet Take 81 mg by mouth once daily. COMPOUNDED PRESCRIPTION MASTECTOMY LEFT BREAST PROSTHESIS DX C50.919 ONE FORM LEISURE BREAST FORM ONE FORM MASTECTOMY BRAS 12 EACH WITH REFILLS FOR ONE YEAR cyanocobalamin (VITAMIN B-12) 500 mcg tab Take 1 tablet by mouth once daily. Magnesium 250 mg tab Take 1 tablet by mouth once daily. albuterol (PROVENTIL) 5 mg/mL nebu Inhale 0.5 mL as instructed every 4 hours as needed for up to 7 days. 1 DOSE NOW - BACK OFFICE. PLACE 0.5 ML PER DROPPER AND 2.5 ML OF JORI (more content not included)... [facility] 09-02-2023 History of Present illness Narrative CC: Martha Hung is a 88 year old female who presents to the office for hospital follow up HPI: She was recently at [facility] for symptoms of shortness of breath and chest pain that began on 08/28/23. She was seen in the EMERGENCY DEPARTMENT and evaluated, no elevated troponins but with some ECG changes. She was found to have multi vessel CAD changes on cardiac catherization and she had 2 drug eluting stents placed to the right coronary artery . She does also have 70% atherosclerosis of the LAD artery and the left artery with 30-50% atherosclerosis changes. She was started on Plavix with her ASA 81 mg and increased dose of Crestor to 10 mg a day. She has started these medications over the last few days. She is now home and feels fatigued but overall doing well. Mood is stable. She has support from her Will. She is planning on leaving for [place] on 10/09. She has had a lump in her left chest wall area at the area of previous mastectomy. She was supposed to have diagnostic mammogram on right and US on the left side. No other symptoms PAST MEDICAL HISTORY Diagnosis Date Acute, but ill-defined, cerebrovascular disease 1990 Advance care planning 08/07/2022 Will to help Cancer (HCC) Depression DM (diabetes mellitus) (HCC) 07/2016 DM (diabetes mellitus) (HCC) DTFB///BENIGN FANTA SKIN LEG 03/30/2008 Essential hypertension, benign Hemorrhage of gastrointestinal tract, unspecified Internal hemorrhoids without mention of complication Malignant neoplasm of female breast (HCC) 04/03/2009 Obstructive sleep apnea Occlusion and stenosis of carotid artery without mention of 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 PAST SURGICAL HISTORY OF back surgery TONSILLECTOMY & ADENOIDECTOMY <AGE 13 Tonsil/adenoidectomy TOTAL ABDOMINAL HYSTERECT W/WO RMVL TUBE OVARY Hysterectomy, PRANAV Current Outpatient Medications Medication Sig clopidogrel (PLAVIX) 75 mg tablet Take 75 mg by mouth once daily. losartan (COZAAR) 100 mg tablet Take 1 tablet by mouth once daily. carvedilol (COREG) 25 mg tablet Take 1 tablet by mouth twice daily. NIFEdipine ER (PROCARDIA XL) 60 mg 24 hr tablet Take 1 tablet by mouth twice daily. torsemide (DEMADEX) 20 mg tablet Take 2 tablets by mouth once daily. Take with 10 mg tablet in the am to equal 50 mg once daily. blood sugar diagnostic (Mamina ShkolaUCH VERIO TEST STRIPS) test strip Test blood sugar(s) 2 times daily. Dx: Type 2 DM - Uncontrolled E11.65 Insulin: No cloNIDine HCl (CATAPRES) 0.2 mg tablet Take 1 tablet by mouth twice daily. nystatin (MYCOSTATIN) cream Apply to affected area twice daily. For fungal rash meloxicam (MOBIC) 15 mg tablet Take 1 tablet by mouth once daily. As needed for pain, Take with food. predniSONE (DELTASONE) 20 mg tablet Take 1 tablet by mouth once daily. As needed for gout flare up Lancets (GeaComTOUCH ULTRASOFT LANCETS) lancets Test blood sugar(s) 2 times daily. Dx: Type 2 DM - Uncontrolled E11.65 , Insulin: No (Patient taking differently: Test blood sugar(s) 2 times daily. Dx: Type 2 DM - Uncontrolled E11.65 , Insulin: No Once weekly) torsemide (DEMADEX) 10 mg tablet Take 1 tablets once daily with 40 mg to total 50 mg a day fluticasone (FLONASE) 50 mcg/actuation nasal spray Use 2 Sprays in each nostril once daily. Rinse mouth after use. (Patient taking differently: Use 2 Sprays in each nostril once daily. Rinse mouth after use. Uses as needed) metroNIDAZOLE 1 % gel Apply 1 application to affected area twice daily. albuterol HFA (PROAIR HFA) 90 mcg/actuation inhaler Inhale 2 Puffs as instructed every 6 hours as needed for Wheezing/Shortness of Breath. prednisoLONE acetate (PRED FORTE, ECONOPRED PLUS) 1 % ophthalmic suspension Use 3 Drops in both eyes three times daily as needed. FOLIC ACID/MULTIVIT-MIN/LUTEIN (CENTRUM SILVER ORAL) Take by mouth. aspirin, enteric coated (ASPIRIN, ENTERIC COATED) 81 mg EC tablet Take 81 mg by mouth once daily. COMPOUNDED PRESCRIPTION MASTECTOMY LEFT BREAST PROSTHESIS DX C50.919 ONE FORM LEISURE BREAST FORM ONE FORM MASTECTOMY BRAS 12 EACH WITH REFILLS FOR ONE YEAR cyanocobalamin (VITAMIN B-12) 500 mcg tab Take 1 tablet by mouth once daily. Magnesium 250 mg tab Take 1 tablet by mouth once daily. albuterol (PROVENTIL) 5 mg/mL nebu Inhale 0.5 mL as instructed every 4 hours as needed for up to 7 days. 1 DOSE NOW - BACK OFFICE. PLACE 0.5 ML PER DROPPER AND 2.5 ML OF NORMAL SALINE INTO RESERVOIR. COMPOUNDED PRESCRIPTION CPAP @ 9 cm of water with humidification. Mask (per patient preference) optional chin strap (if indicated) , filters, tubing, humidifier and lifetime supplies. Pressure change per titration report. Dx. JOSIE 327.23 Cholecalciferol, Vitamin D3, 1,000 unit ORAL Cap Take one(1) tablet daily. MULTIVITAMIN TAB Take one(1) tablet daily. CALCIUM 600 + D(3) 600 MG-200 UNIT TAB Take one(1) tablet two(2) times daily. clonazePAM (KLONOPIN) 0.5 mg tablet Take 1 tablet by mouth two times a day as needed for anxiety for up to 30 days. rosuvastatin (CRESTOR) 10 mg tablet Take 1 tablet by mouth daily at bedtime. clopidogrel (PLAVIX) 75 mg tablet Take 1 tablet by mouth once daily. citalopram (CELEXA) 20 mg tablet Take 1 tablet by mouth once daily. lovastatin (MEVACOR) 10 mg tablet Take 1 tablet by mouth three times a week. Current Facility-Administered Medications Medication Dose Route Frequency perflutren lipid microspheres 1.3 mL in NaCl (PF) 0.9% 10 mL injection (DEFINITY) INTRAVENOUS DIRECTED PRN sodium chloride 0.9 % (flush) 10 mL (BD POSIFLUSH) 10 mL INTRAVENOUS DIRECTED PRN ALLERGIES Allergen Reactions Quinapril Cough Zocor [Simvastatin] Intolerance mucsle pain Social History Tobacco Use Smoking status: Never Smokeless tobacco: Never Vaping Use Vaping Use: Never used Substance Use Topics Alcohol use: No Drug use: No ROS: See HPI PE: BP 100/60 Pulse 60 Temp (Src) 97 (Right Tympanic) Resp 20 Wt 147 lb (66.7kg) Gen: A&OX3, NAD, non-toxic appearing HEENT: PERRLA, EOMs intact b/l, nares without drainage, pharynx without erythema, exudate, lesions, or drainage. Uvula midline. MMM, hard of hearing, wearing glasses. Neck: No LAD, no thyromegaly, no meningismus. CV: RRR,1/6 HSM RUSB murmur, normal s1s2 Lungs: CTA b/l, no wheezing Small 1 cm lump in left chest wall in area of previous mastectomy around 9-10 oclock position with mild soreness No edema, normal pulses Skin: No rashes, lesions, or wounds on exposed skin. ASSESSMENT/PLAN: 1. Coronary artery disease due to lipid rich plaque - ICD9: 414.00, 414.3, ICD10: I25.10, I25.83 (primary diagnosis) - symptoms recently of CP and dyspnea, found to have blockage of right coronary artery, has had 2 drug eluting stents placed. She is taking medications as prescribed. Recommend recheck of CMP and CBC prior to her departure in 1 month to [place]. - ROSUVASTATIN 10 MG TABLET - CLOPIDOGREL 75 MG TABLET - COMP METABOLIC PANEL - CBC 2. ADELAIDE (generalized anxiety disorder) - ICD9: 300.02, ICD10: F41.1 rx refilled. Chronic,s table - CLONAZEPAM 0.5 MG TABLET - TSH BLD 3. Lump in chest - ICD9: 786.6, ICD10: R22.2 Hx of mastectomy on left side, small sore lump. Unsure cause. - US BREAST LTD LEFT 4. Controlled type 2 diabetes mellitus without complication, without long-term current use of insulin (HCC) - ICD9: 250.00, ICD10: E11.9 - Controlled - Continue current medications - Blood glucose monitoring on a once daily schedule - Counseled on healthy diet and regular exercise - HGB A1C - VITAMIN B12 BLOOD 5. Vitamin D deficiency - ICD9: 268.9, ICD10: E55.9 Continue supplement 6. Hyperlipidemia associated with type 2 diabetes mellitus (HCC) - ICD9: 250.80, 272.4, ICD10: E11.69, E78.5 - Control undetermined, due for labs - Counseled on healthy diet and regular exercise - Discussed need for and benefit of weight loss. BMI 26.89 kg/(m^2) - Controlled - Continue current medications - Counseled on healthy diet and regular exercise 7. Disorder of carotid artery (HCC) - ICD9: 447.9, ICD10: I77.9 stable 8. Type 2 diabetes mellitus with stage 3a chronic kidney disease, without long-term current use of insulin (HCC) - ICD9: 250.40, 585.3, ICD10: E11.22, N18.31 - Controlled - Continue current medications - Blood glucose monitoring on a once daily schedule - eGFR: 53 Stable - Counseled on avoiding NSAIDs, adequate hydration - Counseled on low sodium diet 9. Angina pectoris (HCC) - ICD9: 413.9, ICD10: I20.9 See above, now with 2 drug eluting stents, she will follow up with Radio/Tv Technician in 2 weeks after procedure 10. Stage 3a chronic kidney disease (HCC) - ICD9: 585.3, ICD10: N18.31 - eGFR: 53 Stable - Counseled on avoiding NSAIDs, adequate hydration - Counseled on low sodium diet Nico Vargas DO Return if no improvement. Follow up with Nico Vargas DO. To ER if develops chest pain, shortness of breath. Discussed risks, benefits, alternatives, and potential side effects of medications. Patient/Guardian expressed understanding and agreed with the plan. See patient instructions. Nico Vargas DO [address] [place] [address] documented in this encounter [facility] 09-01-2023 Instructions Nico Vargas DO - 09/01/2023 11:27 AM EST Recheck labs 1-2 weeks before you leave in Sep to go to [place] You can come into the lab to do these Make sure to check your blood pressure. Right coronary artery - 90% occluded, stents placed in this Left anterior descending artery- 70% occluded, this is the area they need to control with medication at this time Continue Plavix and ASA daily x 1 year Will try to schedule Ultrasound and mamm[facility] documented in this encounter [facility] 08-29-2023 Miscellaneous Notes Left message letting patient know that the order has been done as requested. Nereyda Reid Order placed. Thank you, Maciel Reynaga APRN.CNP Please place new order for right diagnostic mammogram. Thank you documented in this encounter [facility] 08-27-2023 Miscellaneous Notes Noted. Thank you, Maciel Reynaga APRN.CNP Pt called in and reports she was not able to have the breast and axilla US done at [facility] today. They told her she has to have the diagnostic done first. The first opening we had at [place] was 09/16/23. I sent the orders over to [facility], I told her they may be able to get her in sooner. I told her otherwise she could call back and we could see if we could get her in at one of our other facilities sooner. documented in this encounter [facility] 08-27-2023 Note HNO ID: [id number] Author: Maciel Reynaga APRN.SLD TEACHER Service: ? Author Type: Nurse Practitioner Type: Progress Notes Filed: 08/27/2023 1:46 PM Note Text: Chief Complaint Patient presents with: Lump HPI Martha Hung is a 88 year old female who presents here today for Above Complaints.. Martha is an established patient of Dr. Vargas, and myself. Concerns today... Pt concerned about lump or bump she felt on L side of chest about 1 week ago. Very mild discomfort with palpitation. Non-radiating pain. Has used warm compresses on area x 3 days with relief. Hx of breast cancer in 2008, L side mastectomy. Does not get mammograms anymore. Last mammogram in 2020 was normal. Chest x-ray on 08/20/23 was normal. believes this is anxiety driven. Symptoms seem to improve when she takes anxiety medication. Scheduled for cardiac cath next week. Had calcium scoring score of 886 with moderate to severe plaque build up in [address] Valentin's team for this. Past medical history, appointments, medications, allergies reviewed. Previous Medical History PAST MEDICAL HISTORY Diagnosis Date Acute, but ill-defined, cerebrovascular disease 1990 Advance care planning 08/07/2022 Will to help Cancer (HCC) Depression DM (diabetes mellitus) (HCC) 07/2016 DM (diabetes mellitus) (HCC) DTFB///BENIGN FANTA SKIN LEG 03/30/2008 Essential hypertension, benign Hemorrhage of gastrointestinal tract, unspecified Internal hemorrhoids without mention of complication Malignant neoplasm of female breast (HCC) 04/03/2009 Obstructive sleep apnea Occlusion and stenosis of carotid artery without mention of cerebral infarction 40% left Other and unspecified hyperlipidemia Personal history of other diseases of circulatory system 12/10/2005 Previous Surgical History PAST SURGICAL HISTORY Procedure Laterality Date COLONOSCOPY FLX DX W/COLLJ SPEC WHEN PFRMD 04/24/2006 Colonoscopy LIG/TRNSXJ FLP TUBE ABDL/VAG APPR UNI/BI Tubal ligation MAST RAD W/PECTORAL MUSCLES AXILLARY LYMPH NODES 04/21/09 left breast due to cancer. PAST SURGICAL HISTORY OF back surgery TONSILLECTOMY AND ADENOIDECTOMY Tonsil/adenoidectomy TOTAL ABDOMINAL HYSTERECT W/WO RMVL TUBE OVARY Hysterectomy, PRANAV Family History FAMILY HISTORY Problem Relation Age of Onset Diabetes Mother Heart Mother mi other (leg ampt) Mother Heart Father mi Hypertension Sister x 2 Patient Allergies ALLERGIES Allergen Reactions Quinapril Cough Zocor [Simvastatin] Intolerance mucsle pain Current Medications Current Outpatient Medications on File Prior to Visit Medication Sig losartan (COZAAR) 100 mg tablet Take 1 tablet by mouth once daily. carvedilol (COREG) 25 mg tablet Take 1 tablet by mouth twice daily. clonazePAM (KLONOPIN) 0.5 mg tablet Take 1 tablet by mouth twice daily as needed for anxiety for up to 30 days. NIFEdipine ER (PROCARDIA XL) 60 mg 24 hr tablet Take 1 tablet by mouth twice daily. citalopram (CELEXA) 20 mg tablet Take 1 tablet by mouth once daily. torsemide (DEMADEX) 20 mg tablet Take 2 tablets by mouth once daily. Take with 10 mg tablet in the am to equal 50 mg once daily. blood sugar diagnostic (GeaComTOUCH VERIO TEST STRIPS) test strip Test blood sugar(s) 2 times daily. Dx: Type 2 DM - Uncontrolled E11.65 Insulin: No cloNIDine HCl (CATAPRES) 0.2 mg tablet Take 1 tablet by mouth twice daily. nystatin (MYCOSTATIN) cream Apply to affected area twice daily. For fungal rash meloxicam (MOBIC) 15 mg tablet Take 1 tablet by mouth once daily. As needed for pain, Take with food. lovastatin (MEVACOR) 10 mg tablet Take 1 tablet by mouth three times a week. predniSONE (DELTASONE) 20 mg tablet Take 1 tablet by mouth once daily. As needed for gout flare up Lancets (GeaComTOUCH ULTRASOFT LANCETS) lancets Test blood sugar(s) 2 times daily. Dx: Type 2 DM - Uncontrolled E11.65 , Insulin: No (Patient taking differently: Test blood sugar(s) 2 times daily. Dx: Type 2 DM - Uncontrolled E11.65 , Insulin: No Once weekly) torsemide (DEMADEX) 10 mg tablet Take 1 tablets once daily with 40 mg to total 50 mg a day fluticasone (FLONASE) 50 mcg/actuation nasal spray Use 2 Sprays in each nostril once daily. Rinse mouth after use. (Patient taking differently: Use 2 Sprays in each nostril once daily. Rinse mouth after use. Uses as needed) metroNIDAZOLE 1 % gel Apply 1 application to affected area twice daily. albuterol HFA (PROAIR HFA) 90 mcg/actuation inhaler Inhale 2 Puffs as instructed every 6 hours as needed for Wheezing/Shortness of Breath. prednisoLONE acetate (PRED FORTE, ECONOPRED PLUS) 1 % ophthalmic suspension Use 3 Drops in both eyes three times daily as needed. FOLIC ACID/MULTIVIT-MIN/LUTEIN (CENTRUM SILVER ORAL) Take by mouth. aspirin, enteric coated (ASPIRIN, ENTERIC COATED) 81 mg EC tablet Take 81 mg by mouth once daily. COMPOUNDED PRESCRIPTION MASTE (more content not included)... [facility] 08-27-2023 History of Present illness Narrative Chief Complaint Patient presents with: Lump HPI Martha Hung is a 88 year old female who presents here today for Above Complaints.. Martha is an established patient of Dr. Vargas, and myself. Concerns today... Pt concerned about lump or bump she felt on L side of chest about 1 week ago. Very mild discomfort with palpitation. Non-radiating pain. Has used warm compresses on area x 3 days with relief. Hx of breast cancer in 2008, L side mastectomy. Does not get mammograms anymore. Last mammogram in 2020 was normal. Chest x-ray on 08/20/23 was normal. believes this is anxiety driven. Symptoms seem to improve when she takes anxiety medication. Scheduled for cardiac cath next week. Had calcium scoring score of 886 with moderate to severe plaque build up in [address] Valentin's team for this. Past medical history, appointments, medications, allergies reviewed. Previous Medical History PAST MEDICAL HISTORY Diagnosis Date Acute, but ill-defined, cerebrovascular disease 1990 Advance care planning 08/07/2022 Will to help Cancer (HCC) Depression DM (diabetes mellitus) (HCC) 07/2016 DM (diabetes mellitus) (HCC) DTFB///BENIGN FANTA SKIN LEG 03/30/2008 Essential hypertension, benign Hemorrhage of gastrointestinal tract, unspecified Internal hemorrhoids without mention of complication Malignant neoplasm of female breast (HCC) 04/03/2009 Obstructive sleep apnea Occlusion and stenosis of carotid artery without mention of cerebral infarction 40% left Other and unspecified hyperlipidemia Personal history of other diseases of circulatory system 12/10/2005 Previous Surgical History PAST SURGICAL HISTORY Procedure Laterality Date COLONOSCOPY FLX DX W/COLLJ SPEC WHEN PFRMD 04/24/2006 Colonoscopy LIG/TRNSXJ FLP TUBE ABDL/VAG APPR UNI/BI Tubal ligation MAST RAD W/PECTORAL MUSCLES AXILLARY LYMPH NODES 04/21/09 left breast due to cancer. PAST SURGICAL HISTORY OF back surgery TONSILLECTOMY & ADENOIDECTOMY <AGE 13 Tonsil/adenoidectomy TOTAL ABDOMINAL HYSTERECT W/WO RMVL TUBE OVARY Hysterectomy, PRANAV Family History FAMILY HISTORY Problem Relation Age of Onset Diabetes Mother Heart Mother mi other (leg ampt) Mother Heart Father mi Hypertension Sister x 2 Patient Allergies ALLERGIES Allergen Reactions Quinapril Cough Zocor [Simvastatin] Intolerance mucsle pain Current Medications Current Outpatient Medications on File Prior to Visit Medication Sig losartan (COZAAR) 100 mg tablet Take 1 tablet by mouth once daily. carvedilol (COREG) 25 mg tablet Take 1 tablet by mouth twice daily. clonazePAM (KLONOPIN) 0.5 mg tablet Take 1 tablet by mouth twice daily as needed for anxiety for up to 30 days. NIFEdipine ER (PROCARDIA XL) 60 mg 24 hr tablet Take 1 tablet by mouth twice daily. citalopram (CELEXA) 20 mg tablet Take 1 tablet by mouth once daily. torsemide (DEMADEX) 20 mg tablet Take 2 tablets by mouth once daily. Take with 10 mg tablet in the am to equal 50 mg once daily. blood sugar diagnostic ([employer] VERIO TEST STRIPS) test strip Test blood sugar(s) 2 times daily. Dx: Type 2 DM - Uncontrolled E11.65 Insulin: No cloNIDine HCl (CATAPRES) 0.2 mg tablet Take 1 tablet by mouth twice daily. nystatin (MYCOSTATIN) cream Apply to affected area twice daily. For fungal rash meloxicam (MOBIC) 15 mg tablet Take 1 tablet by mouth once daily. As needed for pain, Take with food. lovastatin (MEVACOR) 10 mg tablet Take 1 tablet by mouth three times a week. predniSONE (DELTASONE) 20 mg tablet Take 1 tablet by mouth once daily. As needed for gout flare up Lancets (ONETOUCH ULTRASOFT LANCETS) lancets Test blood sugar(s) 2 times daily. Dx: Type 2 DM - Uncontrolled E11.65 , Insulin: No (Patient taking differently: Test blood sugar(s) 2 times daily. Dx: Type 2 DM - Uncontrolled E11.65 , Insulin: No Once weekly) torsemide (DEMADEX) 10 mg tablet Take 1 tablets once daily with 40 mg to total 50 mg a day fluticasone (FLONASE) 50 mcg/actuation nasal spray Use 2 Sprays in each nostril once daily. Rinse mouth after use. (Patient taking differently: Use 2 Sprays in each nostril once daily. Rinse mouth after use. Uses as needed) metroNIDAZOLE 1 % gel Apply 1 application to affected area twice daily. albuterol HFA (PROAIR HFA) 90 mcg/actuation inhaler Inhale 2 Puffs as instructed every 6 hours as needed for Wheezing/Shortness of Breath. prednisoLONE acetate (PRED FORTE, ECONOPRED PLUS) 1 % ophthalmic suspension Use 3 Drops in both eyes three times daily as needed. FOLIC ACID/MULTIVIT-MIN/LUTEIN (CENTRUM SILVER ORAL) Take by mouth. aspirin, enteric coated (ASPIRIN, ENTERIC COATED) 81 mg EC tablet Take 81 mg by mouth once daily. COMPOUNDED PRESCRIPTION MASTECTOMY LEFT BREAST PROSTHESIS DX C50.919 ONE FORM LEISURE BREAST FORM ONE FORM MASTECTOMY BRAS 12 EACH WITH REFILLS FOR ONE YEAR cyanocobalamin (VITAMIN B-12) 500 mcg tab Take 1 tablet by mouth once daily. Magnesium 250 mg tab Take 1 tablet by mouth once daily. albuterol (PROVENTIL) 5 mg/mL nebu Inhale 0.5 mL as instructed every 4 hours as needed for up to 7 days. 1 DOSE NOW - BACK OFFICE. PLACE 0.5 ML PER DROPPER AND 2.5 ML OF NORMAL SALINE INTO RESERVOIR. COMPOUNDED PRESCRIPTION CPAP @ 9 cm of water with humidification. Mask (per patient preference) optional chin strap (if indicated) , filters, tubing, humidifier and lifetime supplies. Pressure change per titration report. Dx. JOSIE 327.23 Cholecalciferol, Vitamin D3, 1,000 unit ORAL Cap Take one(1) tablet daily. MULTIVITAMIN TAB Take one(1) tablet daily. CALCIUM 600 + D(3) 600 MG-200 UNIT TAB Take one(1) tablet two(2) times daily. Current Facility-Administered Medications on File Prior to Visit Medication perflutren lipid microspheres 1.3 mL in NaCl (PF) 0.9% 10 mL injection (DEFINITY) sodium chloride 0.9 % (flush) 10 mL (BD POSIFLUSH) Social History Social History Tobacco Use Smoking status: Never Smokeless tobacco: Never Vaping Use Vaping Use: Never used Substance Use Topics Alcohol use: No Drug use: No REVIEW OF SYSTEMS: as above Reviewed relevant PMHx, PSHx, Social Hx, current medications and allergies. Review of Symptoms REVIEW OF SYSTEMS See HPI. EXAM: BP 136/62 (BP Site: Right Arm, BP Position: Sitting, BP Cuff Size: Regular Adult) Pulse 72 Resp 12 Wt 68 kg (150 lb) BMI 27.44 kg/m General Appearance: Well appearing, alert, in no acute distress, well-hydrated, well nourished.. Skin: Skin color, texture, turgor normal, no suspicious rashes or lesions. Head: Normocephalic, no masses, lesions, tenderness or abnormalities. Neck: Supple, no adenopathy; thyroid symmetric, normal size, no bruits. Lungs: Lungs clear to auscultation. No wheezing, rhonchi, rales.. Heart: RRR without murmur, gallop, or rubs. No ectopy. Chest: No palpable lump or nodule at area of concern. Health Maintenance List RSV Vaccine(1 - 1-dose 60+ series) Never done Influenza Vaccine(1) due on 05/23/2023 Covid-19 Vaccine(2022- season) due on 05/23/2023 Urine Albumin:Creatinine Ratio due on 07/31/2023 Diabetic Foot Exam due on 08/07/2023 HbA1C due on 11/20/2023 Dilated Retinal Exam due on 12/31/2023 LDL Cholesterol due on 01/28/2024 DTaP,Tdap,Td Vaccine(2 - Td or Tdap) due on 05/15/2027 Bone Density Screening Completed Shingrix Vaccine Completed Pneumococcal Vaccine: 65+ Completed Advance Directive Discussion Discontinued ASSESSMENT/PLAN: 1. Personal history of malignant neoplasm of breast - ICD9: V10.3, ICD10: Z85.3 (primary diagnosis) See below. - US CHEST WALL/SOFT TISSUE - US BREAST LTD RIGHT - LEIA DIAGNOSTIC BILATERAL 2. Mass of upper inner quadrant of left breast - ICD9: 611.72, ICD10: N63.22 No palpable lump or nodule over area of concern but given history and pt concern, I recommend US of breast and soft tissue as ordered. - US CHEST WALL/SOFT TISSUE - US BREAST LTD RIGHT - LEIA DIAGNOSTIC BILATERAL Continue with cardiology cardiac cath as scheduled, sooner if able. Prescription instructions reviewed with patient as applicable. Potential red flag symptoms discussed with the patient. Reviewed appropriate action plan to take if red flag symptoms occur. Patient agreeable to treatment plan. Maciel Murray APRN.SLD TEACHER [address] [place] [address] documented in this encounter [facility] 07-30-2023 Miscellaneous Notes Printed and placed in your box. Under scanned documents External Cardiology from 07/18/23. Please obtain results for me to review Nico Vargas DO Pt called in and was asking if the provider could call her with the results from the Calcium scoring test she had done at [facility] hospital. Please call and advise. documented in this encounter [facility] 07-22-2023 Miscellaneous Notes Pt had testing done on 07-18-23 at [facility]. Olga Segura LPN Pt notified of insurance coverage. Pt also stated she will only have to pay 75.00. Rosa Frost LPN Please inform patient that this is not typically a covered test by insurance which I had discussed with her in office when she asked/discussed this testing with me Thanks Nico Vargas DO Pt calls to report that insurance ([employer]) denied CT Calcium Scoring that was scheduled at [facility] for 07/18. Pt reports insurance did not tell her why it was denied. Pt is going to call [facility] to make sure test is still scheduled. Insurance person had advised pt to call pcp and let them know. Pt reports she did say to dr if test wasn't covered she would pay out of pocket but does not understand why insurance will not cover test. Stephanie Ward LPN documented in this encounter [facility] 05-29-2023 Miscellaneous Notes Order was faxed. Order placed, please fax and notify Nico Vargas DO [facility] needs order for Calcium scaling test. Please advise. documented in this encounter [facility] 05-22-2023 Evaluation + Plan note Diagnostic Tests PendingUrine Culture 05/22/23 [facility] 05-22-2023 Hospital Discharge instructions Patient Education 05/22/2023 06:10:17 Dysuria Dysuria Painful urination (dysuria) is often caused by a problem in the urinary tract. Dysuria is pain felt during urination. It is often described as a burning. Learn more about this problem and how it can be treated. What causes dysuria? Possible causes include: Infection with a bacteria or virus such as a urinary tract infection (UTI or a sexually transmitted infection (STI) Sensitivity or allergy to chemicals such as those found in lotions and other products Prostate or bladder problems Radiation therapy to the pelvic area How is dysuria diagnosed? Your healthcare provider will examine you. He or she will ask about your symptoms and health. After talking with you and doing a physical exam, your healthcare provider may know what is causing your dysuria. He or she will usually request a sample of your urine. Tests of your urine, or a urinalysis, are done. A urinalysis may include: Looking at the urine sample (visual exam) Checking for substances (chemical exam) Looking at a small amount under a microscope (microscopic exam) Some parts of the urinalysis may be done in the provider's office and some in a lab. And, the urine sample may be checked for bacteria and yeast (urine culture). Your healthcare provider will tell you more about these tests if they are needed. How is dysuria treated? Treatment depends on the cause. If you have a bacterial infection, you may need antibiotics. You may be given medicines to make it easier for you to urinate and help relieve pain. Your healthcare provider can tell you more about your treatment options. Untreated, symptoms may get worse. When to call your healthcare provider Call the healthcare provider right away if you have any of the following: Fever of 100.4 F (38 C) or higher No improvement after three days of treatment Trouble urinating because of pain New or increased discharge from the vagina or penis Rash or joint pain Increased back or abdominal pain Enlarged painful lymph nodes (lumps) in the groinTh 2086-[address] [employer] [place] [address], [place] [address]. All rights reserved. This information is not intended as a substitute for professional medical care. Always follow your healthcare professional's instructions. Follow Up Care 05/22/2023 05:55:17 With:CHRISTINA CORNELIUS, OLU Hyde Address: [address] [phone] When:1-2 days With:Go to emergency room if symptoms worsen Address:Unknown When:2-4 days With:NICO VARGAS DO Address: [address] [place], [place] [phone]- When:2-4 days [facility] 05-22-2023 Note Discharge Instructions Thank you for allowing [facility] to assist you with your healthcare needs. The following is important discharge information regarding your hospital visit. Diagnosis from Today's Visit Intertrigo UTI Vaginal pain What to Do Next Instructions from Your Care Team Use your nystatin cream/flagyl gel as prescribed for intertrigo in your groin fold area. Follow-up with Dr. Guadalupe of [facility] given your vaginal plane. Return the emergency department if you experience worsening symptoms or any other care concern. May take Tylenol as needed for pain. Do not exceed the recommended dose. No qualifying data available. Post Acute Orders No qualifying data available. You Need to Schedule the Following Appointments Follow Up with OLU GUADALUPE MD When Within 1-2 days Where: [address] [address] [phone] Follow Up with Go to emergency room if symptoms worsen When Within 2-4 days Follow Up with NICO VARGAS DO When Within 2-4 days Where: [address] [place], [place] [id number]- Allergies Zocor Medications Please ask your primary doctor or pharmacist before taking any other medication not listed, including over the counter drugs, herbal medications, vitamins and or supplements as they may interact with your home medications. What How Much When Instructions Last Dose Unchanged albuterol (albuterol MDI (90 mcg/ inh) CFC free inhalation aerosol) 2 puff(s) by inhalation Every 6 hours as needed for as needed for wheezing Unchanged albuterol (Proventil HFA MDI (90 mcg/ inh) inhalation aerosol) 2 puff(s) by inhalation Every 4 hours as needed for as needed for wheezing Unchanged citalopram (citalopram 20 mg oral tablet) 1 tab(s) by mouth Every day Unchanged clonazePAM (clonazePAM 0.5 mg oral tablet) 1 tab(s) by mouth Two (2) times a day Unchanged cloNIDine (cloNIDine 0.2 mg oral tablet) 1 tab(s) by mouth Two (2) times a day Unchanged losartan (losartan 100 mg oral tablet) 1 tab(s) by mouth Once a day Unchanged lovastatin (lovastatin 10 mg oral tablet) 1 tab(s) by mouth Once a day Unchanged meloxicam (meloxicam 15 mg oral tablet) 1 tab(s) by mouth Once a day Unchanged metroNIDAZOLE topical (MetroGel 1% topical gel) 1 application Topical Two (2) times a day Unchanged NIFEdipine (NIFEdipine (Eqv-Procardia XL) 60 mg oral tablet, extended release) Unchanged nystatin topical (Mycostatin 100,000 units/ g topical ointment) 1 application Topical Two (2) times a day Unchanged nystatin topical (nystatin 100,000 units/ g topical cream) Unchanged predniSONE (predniSONE 10 mg oral tablet) 2 tab(s) by mouth Once a day Unchanged torsemide (torsemide 20 mg oral tablet) 2 tab(s) Please take this list to your next doctor s visit. Bring all medications you take, including over the counter medications, herbals and other supplements with you to your doctor s visit. Patients and families are reminded to discard old lists and to update any records with all medication providers or retail pharmacies. Education Materials Dysuria Painful urination (dysuria) is often caused by a problem in the urinary tract. Dysuria is pain felt during urination. It is often described as a burning. Learn more about this problem and how it can be treated. What causes dysuria? Possible causes include: Infection with a bacteria or virus such as a urinary tract infection (UTI or a sexually transmitted infection (STI) Sensitivity or allergy to chemicals such as those found in lotions and other products Prostate or bladder problems Radiation therapy to the pelvic area How is dysuria diagnosed? Your healthcare provider will examine you. He or she will ask about your symptoms and health. After talking with you and doing a physical exam, your healthcare provider may know what is causing your dysuria. He or she will usually request a sample of your urine. Tests of your urine, or a urinalysis, are done. A urinalysis may include: Looking at the urine sample (visual exam) Checking for substances (chemical exam) Looking at a small amount under a microscope (microscopic exam) Some parts of the urinalysis may be done in the provider's office and some in a lab. And, the urine sample may be checked for bacteria and yeast (urine culture). Your healthcare provider will tell you more about these tests if they are needed. How is dysuria treated? Treatment depends on the cause. If you have a bacterial infection, you may need antibiotics. You may be given medicines to make it easier for you to urinate and help relieve pain. Your healthcare provider can tell you more about your treatment options. Untreated, symptoms may get worse. When to call your healthcare provider Call the healthcare provider right away if you have any of the following: Fever of 100.4 F (38 C) or higher No improvement after three days of treatment Trouble urinating because of pain New or increased discharge from the vagina or penis Rash or joint pain Increased back or abdominal pain Enlarged painful lymph nodes (lumps) in the groinTh 3949-3906 [employer]. [address] [place] [address]. All rights reserved. This information is not intended as a substitute for professional medical care. Always follow your healthcare professional's instructions. Additional Information VACCINATE! IT SAVES LIVES! Members of the community who have not yet received the COVID-19 vaccine and would like to receive it can visit one of [facility] vaccine clinics. There are many vaccine clinic locations within the [facility]. For locations and available times, please visit [email or web address] [email or web address] It is important to note that some COVID mobile vaccine clinics are held outdoors and may be canceled in rainy or stormy conditions. To learn more about pediatric vaccinations (ages 5-11), we invite you to visit the [facility] webpage. https://www.[facility].org/pag es/4814-Vybcu-Onyuujgelwy-Frequent yz-Wzhtx-Imemqbizz.html To learn more about the COVID-19 vaccine, we invite you to visit the CDC website for a list of frequently asked questions. https://www.cdc.gov/coronavirus/ 19-ncov/vaccines/faq.html [employer] Patient Portal Access Instructions: Stay connected with your healthcare team and access your personal medical information anytime with the [employer] Patient Portal. If you would like a full copy of your medical records please contact the [facility] Medical Records Department Friday through Friday between 8a.m. and 4:30p.m. Please follow the directions below to access the portal: 1.Access the email account you provided upon registration to the [facility].2.Look for an invitation email from [facility].3.Open the email and access the invitation link: Accept Invitation to [facility]4.Fill in the required bentley to create your account. Sign into [email or web address] with your username and password that you created in the above steps to stay up to date. You can then view a summary of results, a summary of your visits, and the ability to download your summaries to your computer or send the information securely to a physician. Remember that your healthcare information is confidential, so carefully consider who you will allow to register on the [employer] Patient Portal for access to your information. You can also access the [employer] Patient Portal on the momondo. Simply click on Health Records under Health Data and then click on the [employer] logo. HOW TO SAFELY DISPOSE OF PRESCRIPTION MEDICATIONS Please use one of the following methods to safely dispose of your unused medications. 1.Use a drug disposal kit: the drug disposal pouch allows you to safely discard your old and unused drugs. Ask your nurse to give you one when you are discharged.2.Visit a local take-back location: Many local pharmacies and police departments have programs that collect old and unwanted prescription drugs. Call your local pharmacy or go to http://[employer]/3X1Sn2j to find one close to you.3.Make use of household items: Use cat litter or old coffee grounds to dispose medications if other options are not available. Mix your drugs with these household products, seal them in an airtight container and throw it into the garbage. Call [facility]: [phone] to be sure your drugs can be disposed of in this way. Some medicines may require a different approach.4.Never flush your medications down the toilet. IF YOU HAVE BEEN PRESCRIBED AN OPIOIDS FOR PAIN If you have been prescribed an opioid (such as hydrocodone, oxycodone or morphine), it is critical to understand the possible side effects and risks of opioid pain medications. Even when taken as directed, opioids can have several side effects including: Tolerance, meaning you might need to take more of a medication for the same pain relief. Nausea, vomiting and/or constipation. Sleepiness, dizziness, dry mouth, confusion, depression or itching. Physical dependence, meaning you have withdrawal symptoms when a medication is stopped ? this can develop within a few days. KNOW YOUR RESPONSIBILITIES It is important to know exactly how much and how often to take the opioid pain medications you are prescribed. Never take opioids in higher amounts or more often than prescribed. Do not combine opioids with alcohol or other drugs that cause drowsiness, such as benzodiazepines, also known as benzos, including diazepam and alprazolam, muscle relaxants or sleep aids. Never sell or share prescription opioids. This is illegal. Store opioids in a secure place and out of reach of others (including children, family, friends and visitors). The last page(s) of this document has been signed and retained as a CHART COPY Signatures Patient Education Materials Dysuria Medication Leaflets My discharge plan and instructions have been reviewed and explained to me and I,MARTHA HUNG understand my current condition and have read and understand these discharge instructions. I have received a written copy of the plan/instructions. If I have questions, I am aware that I should contact my doctor. Patient/Visual Stylist Signature: Date/Time: Relationship to Patient: ___ Witness Name/Signature: Date/Time: [facility] 05-20-2023 Note HNO ID: [id number] Author: Zuleyka Ta RT(R) Service: ? Author Type: Truck Driver Helper Type: Progress Notes Filed: 05/20/2023 10:29 AM Note Text: Radiology Service Progress Note PATIENT NAME: Martha Hung DATE OF SERVICE: May 20, 2023 TIME: 10:17 AM PATIENT IDENTITY VERIFICATION COMPLETED USING TWO (2) IDENTIFIERS: Name and Date of confirmed by patient verbally. FALL SCREENING: Has the patient had 2 falls in the last year or 1 fall with injury or currently using an Ambulatory Assistive Device (Walker, Cane, Wheelchair, Crutches, etc.)? No PATIENT GENDER DATA: Female. status: : No status: NO. PATIENT RELEVANT IMPLANT DATA REVIEWED: Yes RADIOLOGY DEPARTMENT: General X-ray: Exam(s) Completed: Spine X-Ray(s): Thoracic PERIPHERAL IV DATA: Not applicable SIGNED BY: RT Johnnie(R) May 20, 2023 10:17 AM [facility] 05-20-2023 Note HNO ID: [id number] Author: Nico Vargas, DO Service: ? Author Type: Physician Type: Progress Notes Filed: 05/20/2023 11:34 AM Note Text: Xr thorPatient presents with: F/U 3 Month HPI: Martha Hung is a 88 year old female who presents to the office today for review of health conditions. Concerns today: Palpitations and feeling short of breath- such as sweeping the house, mostly with working around the house. Has been still exercising at the [facility] 2-3 days a week so knows she is still trying to be active. No syncope or presyncope but does get a little LH. ECHO and nuclear stress testing has been normal. Has been affecting her quality of life and not able to be as physically active. 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 She isn't interested in therapy but but is considering this. Ms. Hung has past history of diabetes. Since our last visit she denies excessive thirst or increased frequency of urination, chest pain or dyspnea , new or unusual visual symptoms, and low sugar/hypoglycemic reactions. Depression- no. Follows a diabetic diet most of the time. She is compliant with medication(s) and is tolerating med(s) without any side effects. She reports checking her glucose on a once a day schedule with sugars in the <150 range. Patient's last HgA1C was Hemoglobin A1C (%) Date Value 01/27/2023 6.2 07/31/2022 6.4 08/28/2021 6.5 05/10/2021 6.5 ) Last Ophthalmology exam was within the past 12 months Ms. Hung reports history of hyperlipidemia. Current therapy includes lovastatin (Mevacor) 10 mg. Denies side effects of muscle weakness or achiness. Her most recent lipid panels are reviewed. Cholesterol, Total (mg/dL) Date Value 01/27/2023 184 08/28/2021 219 HDL Cholesterol (mg/dL) Date Value 01/27/2023 35 08/28/2021 35 LDL Cholesterol (mg/dL) Date Value 01/27/2023 85 08/28/2021 Unable to calculate due to increased Triglycerides. See LDL-Chol, Direct. Triglyceride (mg/dL) Date Value 01/27/2023 322 08/28/2021 423 Ms. Hung indicates a history of hypertension and states that she is feeling well and denies any symptoms referable to elevated blood pressure. Specifically denies headache, chest pain, palpitations, dyspnea, and peripheral edema. Patient denies any side effects of her medication(s) and is compliant with their regimen. Last 3 Encounter BP Readings: Date: BP: 05/20/2023 100/60 03/26/2023 106/58 02/04/2023 124/80 She watches her diet for sodium, low fat and low cholesterol some of the time. She does check BP's away from this office with average BP's in the <120/80s range. Martha likes to exercise by swimming or swim class. PAST MEDICAL HISTORY Diagnosis Date Acute, but ill-defined, cerebrovascular disease 1990 Advance care planning 08/07/2022 Will to help Cancer (HCC) Depression DM (diabetes mellitus) (HCC) 07/2016 DM (diabetes mellitus) (HCC) DTFB///BENIGN FANTA SKIN LEG 03/30/2008 Essential hypertension, benign Hemorrhage of gastrointestinal tract, unspecified Internal hemorrhoids without mention of complication Malignant neoplasm of female breast (HCC) 04/03/2009 Obstructive sleep apnea Occlusion and stenosis of carotid artery without mention of 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 PAST SURGICAL HISTORY OF back surgery TONSILLECTOMY AND ADENOIDECTOMY Tonsil/adenoidectomy TOTAL ABDOMINAL HYSTERECT W/WO RMVL TUBE OVARY Hysterectomy, PRANAV Social History Tobacco Use Smoking status: Never Smokeless tobacco: Never Vaping Use Vaping Use: Never used Substance Use Topics Alcohol use: No Drug use: No FAMILY HISTORY Problem Relation Age of Onset Diabetes Mother Heart Mother mi other (leg ampt) Mother Heart Father mi Hypertension Sister x 2 Allergies: ALLERGIES Allergen Reactions Quinapril Cough Zocor [Simvastatin] Intolerance mucsle pain Current Meds: blood sugar diagnostic ([employer] VERIO TEST STRIPS) test stripTest blood sugar(s) 2 times daily. Dx: Type 2 DM - Uncontrolled E11.65 Insulin: NoDisp: 100 StripRfl: 11 NIFEdipine ER (PROCARDIA XL) 60 mg 24 hr tabletTake 1 tablet by mouth twice daily.Disp: 180 tabletRfl: 1 cloNIDine HCl (CATAPRES) 0.2 mg tabletTake 1 tablet by mouth twice daily.Disp: 180 tabletRfl: 3 nystatin (MYCOSTATIN) creamApply to affected area twice daily. For fungal rashDisp: 30 gRfl: 3 meloxicam (MOBIC) 15 mg tabletTake 1 tablet by mouth once daily. As needed for pain, Take with food.Di (more content not included)... 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 Do this morning and night if able when flared up. documented in this encounter [facility] 05-20-2023 History of Present illness Narrative Xr thorPatient presents with: F/U 3 Month HPI: Martha Hung is a 88 year old female who presents to the office today for review of health conditions. Concerns today: Palpitations and feeling short of breath- such as sweeping the house, mostly with working around the house. Has been still exercising at the [facility] 2-3 days a week so knows she is still trying to be active. No syncope or presyncope but does get a little LH. ECHO and nuclear stress testing has been normal. Has been affecting her quality of life and not able to be as physically active. 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 She isn't interested in therapy but but is considering this. Ms. Hung has past history of diabetes. Since our last visit she denies excessive thirst or increased frequency of urination, chest pain or dyspnea , new or unusual visual symptoms, and low sugar/hypoglycemic reactions. Depression- no. Follows a diabetic diet most of the time. She is compliant with medication(s) and is tolerating med(s) without any side effects. She reports checking her glucose on a once a day schedule with sugars in the <150 range. Patient's last HgA1C was Hemoglobin A1C (%) Date Value 01/27/2023 6.2 07/31/2022 6.4 08/28/2021 6.5 05/10/2021 6.5 ) Last Ophthalmology exam was within the past 12 months Ms. Hung reports history of hyperlipidemia. Current therapy includes lovastatin (Mevacor) 10 mg. Denies side effects of muscle weakness or achiness. Her most recent lipid panels are reviewed. Cholesterol, Total (mg/dL) Date Value 01/27/2023 184 08/28/2021 219 HDL Cholesterol (mg/dL) Date Value 01/27/2023 35 08/28/2021 35 LDL Cholesterol (mg/dL) Date Value 01/27/2023 85 08/28/2021 Unable to calculate due to increased Triglycerides. See LDL-Chol, Direct. Triglyceride (mg/dL) Date Value 01/27/2023 322 08/28/2021 423 Ms. Hung indicates a history of hypertension and states that she is feeling well and denies any symptoms referable to elevated blood pressure. Specifically denies headache, chest pain, palpitations, dyspnea, and peripheral edema. Patient denies any side effects of her medication(s) and is compliant with their regimen. Last 3 Encounter BP Readings: Date: BP: 05/20/2023 100/60 03/26/2023 106/58 02/04/2023 124/80 She watches her diet for sodium, low fat and low cholesterol some of the time. She does check BP's away from this office with average BP's in the <120/80s range. Martha likes to exercise by swimming or swim class. PAST MEDICAL HISTORY Diagnosis Date Acute, but ill-defined, cerebrovascular disease 1990 Advance care planning 08/07/2022 Will to help Cancer ([facility]) Depression DM (diabetes mellitus) ([facility]) 07/2016 DM (diabetes mellitus) ([facility]) DTFB///BENIGN FANTA SKIN LEG 03/30/2008 Essential hypertension, benign Hemorrhage of gastrointestinal tract, unspecified Internal hemorrhoids without mention of complication Malignant neoplasm of female breast ([facility]) 04/03/2009 Obstructive sleep apnea Occlusion and stenosis of carotid artery without mention of 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 PAST SURGICAL HISTORY OF back surgery TONSILLECTOMY & ADENOIDECTOMY <AGE 13 Tonsil/adenoidectomy TOTAL ABDOMINAL HYSTERECT W/WO RMVL TUBE OVARY Hysterectomy, PRANAV Social History Tobacco Use Smoking status: Never Smokeless tobacco: Never Vaping Use Vaping Use: Never used Substance Use Topics Alcohol use: No Drug use: No FAMILY HISTORY Problem Relation Age of Onset Diabetes Mother Heart Mother mi other (leg ampt) Mother Heart Father mi Hypertension Sister x 2 Allergies: ALLERGIES Allergen Reactions Quinapril Cough Zocor [Simvastatin] Intolerance mucsle pain Current Meds: blood sugar diagnostic (ONETOUCH VERIO TEST STRIPS) test strip^Test blood sugar(s) 2 times daily. Dx: Type 2 DM - Uncontrolled E11.65 Insulin: No^Disp: 100 Strip^Rfl: 11 NIFEdipine ER (PROCARDIA XL) 60 mg 24 hr tablet^Take 1 tablet by mouth twice daily.^Disp: 180 tablet^Rfl: 1 cloNIDine HCl (CATAPRES) 0.2 mg tablet^Take 1 tablet by mouth twice daily.^Disp: 180 tablet^Rfl: 3 nystatin (MYCOSTATIN) cream^Apply to affected area twice daily. For fungal rash^Disp: 30 g^Rfl: 3 meloxicam (MOBIC) 15 mg tablet^Take 1 tablet by mouth once daily. As needed for pain, Take with food.^Disp: 90 tablet^Rfl: 3 clonazePAM (KLONOPIN) 0.5 mg tablet^Take 1 tablet by mouth twice daily as needed for anxiety for up to 30 days.^Disp: 40 tablet^Rfl: 2 carvedilol (COREG) 25 mg tablet^Take 1 tablet by mouth twice daily.^Disp: 180 tablet^Rfl: 3 torsemide (DEMADEX) 20 mg tablet^Take 2 tablets by mouth once daily. Take with 10 mg tablet in the am to equal 50 mg once daily.^Disp: 180 tablet^Rfl: 3 lovastatin (MEVACOR) 10 mg tablet^Take 1 tablet by mouth three times a week.^Disp: 36 tablet^Rfl: 3 losartan (COZAAR) 100 mg tablet^Take 1 tablet by mouth once daily.^Disp: 90 tablet^Rfl: 3 citalopram (CELEXA) 20 mg tablet^Take 1 tablet by mouth once daily.^Disp: 90 tablet^Rfl: 3 predniSONE (DELTASONE) 20 mg tablet^Take 1 tablet by mouth once daily. As needed for gout flare up^Disp: 7 tablet^Rfl: 1 Lancets (ONETOUCH ULTRASOFT LANCETS) lancets^Test blood sugar(s) 2 times daily. Dx: Type 2 DM - Uncontrolled E11.65 , Insulin: No^Disp: 100 Each^Rfl: 11 (Patient taking differently: Test blood sugar(s) 2 times daily. Dx: Type 2 DM - Uncontrolled E11.65 , Insulin: No Once weekly) torsemide (DEMADEX) 10 mg tablet^Take 1 tablets once daily with 40 mg to total 50 mg a day^Disp: 90 tablet^Rfl: 3 fluticasone (FLONASE) 50 mcg/actuation nasal spray^Use 2 Sprays in each nostril once daily. Rinse mouth after use.^Disp: 3 Bottle^Rfl: 3 (Patient taking differently: Use 2 Sprays in each nostril once daily. Rinse mouth after use. Uses as needed) metroNIDAZOLE 1 % gel^Apply 1 application to affected area twice daily.^Disp: 45 g^Rfl: 3 albuterol HFA (PROAIR HFA) 90 mcg/actuation inhaler^Inhale 2 Puffs as instructed every 6 hours as needed for Wheezing/Shortness of Breath.^Disp: 3 Inhaler^Rfl: 2 prednisoLONE acetate (PRED FORTE, ECONOPRED PLUS) 1 % ophthalmic suspension^Use 3 Drops in both eyes three times daily as needed.^Disp: ^Rfl: 0 FOLIC ACID/MULTIVIT-MIN/LUTEIN (CENTRUM SILVER ORAL)^Take by mouth.^Disp: ^Rfl: aspirin, enteric coated (ASPIRIN, ENTERIC COATED) 81 mg EC tablet^Take 81 mg by mouth once daily.^Disp: ^Rfl: COMPOUNDED PRESCRIPTION^MASTECTOMY LEFT BREAST PROSTHESIS DX C50.919 ONE FORM LEISURE BREAST FORM ONE FORM MASTECTOMY BRAS 12 EACH WITH REFILLS FOR ONE YEAR^Disp: 2 Each^Rfl: 12 cyanocobalamin (VITAMIN B-12) 500 mcg tab^Take 1 tablet by mouth once daily.^Disp: 90 tablet^Rfl: 1 Magnesium 250 mg tab^Take 1 tablet by mouth once daily.^Disp: ^Rfl: 0 albuterol (PROVENTIL) 5 mg/mL nebu^Inhale 0.5 mL as instructed every 4 hours as needed for up to 7 days. 1 DOSE NOW - BACK OFFICE. PLACE 0.5 ML PER DROPPER AND 2.5 ML OF NORMAL SALINE INTO RESERVOIR.^Disp: 1 mL^Rfl: 0 COMPOUNDED PRESCRIPTION^CPAP @ 9 cm of water with humidification. Mask (per patient preference) optional chin strap (if indicated) , filters, tubing, humidifier and lifetime supplies. Pressure change per titration report. Dx. JOSIE 327.23^Disp: 1 Device^Rfl: 0 Cholecalciferol, Vitamin D3, 1,000 unit ORAL Cap^Take one(1) tablet daily.^Disp: ^Rfl: 0 MULTIVITAMIN TAB^Take one(1) tablet daily.^Disp: ^Rfl: 0 CALCIUM 600 + D(3) 600 MG-200 UNIT TAB^Take one(1) tablet two(2) times daily. ^Disp: ^Rfl: 0 Review of Systems: The remainder of the review of systems is negative. PE: 05/20/23 0907 BP: 100/60 Pulse: 60 Resp: 20 Temp: 36.3 C (97.3 F) TempSrc: Left Tympanic Weight: 67.1 kg (148 lb) Gen: A&O, NAD, non-toxic appearing, Pleasant, cooperative HEENT: NT/AC, PERRLA, EOMs intact b/l, nares clear and patent b/l, pharynx without erythema, exudate or lesions. Uvula midline. MMM, hearing aides in place, EACs without erythema or debris. TMs pearly goff with intact landmarks b/l. Neck: supple, No cervical LAD, no thyromegaly, no carotid bruits CV: RRR, normal S1 and S2, no murmurs, no gallops, no rubs, Pulses 2+ and symmetric in UE and LE b/l Lungs: normal respiratory effort, CTA b/l, no wheezing or rhonchi or rales Abd: soft, overweight, NT, ND, +BS, no hepatosplenomegaly MS: reduced ROM right shoulder with rotation, TTP over GH and AC joints. Neuro: CN II-XII intact b/l Skin: warm, dry, intact, No rashes or lesions on exposed skin. Foot exam: Monofilament wnl on right and left feet. No edema, normal pulses ASSESSMENT/PLAN: 1. Encounter for screening for cardiovascular disorders - ICD9: V81.2, ICD10: Z13.6 (primary diagnosis) - CT CALCIUM SCORING (CARDIAC) WO IVCON 2. Chronic right shoulder pain - ICD9: 719.41, 338.29, ICD10: M25.511, G89.29 Encouraged her to do exercises, icing and topical Voltaren 1% cream. Consider PHYSICAL THERAPY and orthopedics if worsening 3. Essential hypertension, benign - ICD9: 401.1, ICD10: I10 - Controlled - Continue current medications - Recommend home blood pressure monitoring, to bring results to next visit - Encouraged sodium restriction, DASH or Mediterranean diet - Recommend regular aerobic exercise 4. Controlled type 2 diabetes mellitus without complication, without long-term current use of insulin (HCC) - ICD9: 250.00, ICD10: E11.9 - Controlled - Continue current medications - Blood glucose monitoring on a once daily schedule - Counseled on healthy diet and regular exercise - HGB A1C - COMP METABOLIC PANEL - CBC + DIFF 5. ELIZABETH (dyspnea on exertion) - ICD9: 786.09, ICD10: R06.09 Symptoms are consistent, had ECHO and nuclear stress testing which were stable/normal. Recommend net lead architect and cath for heart if still present after testing - CT CALCIUM SCORING (CARDIAC) WO IVCON 6. Palpitations - ICD9: 785.1, ICD10: R00.2 Symptoms are consistent, had ECHO and nuclear stress testing which were stable/normal. Recommend net lead architect and cath for heart if still present after testing - CT CALCIUM SCORING (CARDIAC) WO IVCON - T4 FREE/FREE THYROX - T3 FREE BLD - IRON + TIBC 7. Pure hypercholesterolemia - ICD9: 272.0, ICD10: E78.00 Symptoms are consistent, had ECHO and nuclear stress testing which were stable/normal. Recommend net lead architect and cath for heart if still present after testing Continue statin therapy - CT CALCIUM SCORING (CARDIAC) WO IVCON 8. Vitamin D deficiency - ICD9: 268.9, ICD10: E55.9 Continue supplement 9. Fatigue, unspecified type - ICD9: 780.79, ICD10: R53.83 Recheck labs - COMP METABOLIC PANEL - CBC + DIFF - TSH BLD - VITAMIN B12 BLOOD - T4 FREE/FREE THYROX - T3 FREE BLD - IRON + TIBC 10. Chronic bilateral thoracic back pain - ICD9: 724.1, 338.29, ICD10: M54.6, G89.29 - XR THORACIC GENERAL 3V AP/LAT/SWIMMERS Nico Vargas DO To ER if develops chest pain, shortness of breath, or severe worsening of symptoms. Discussed risks, benefits, alternatives, and potential side effects of medications. Patient expressed understanding and agreed with the plan. Nico Vargas DO [address] [place] [address] documented in this encounter [facility] 03-31-2023 Miscellaneous Notes Peter--03/26/23 Nov--05/20/23 Last refill--02/05/22 100 with 11 refills but pharmacy states needs new script Last labs--01/27/23 documented in this encounter [facility] 03-26-2023 Note HNO ID: [id number] Author: RT Christos(R) Service: Nuclear Medicine Author Type: Technologist Type: Progress Notes Filed: 03/26/2023 1:44 PM Note Text: Radiology Service Progress Note PATIENT NAME: Martha Hung DATE OF SERVICE: March 26, 2023 TIME: 1:35 PM PATIENT IDENTITY VERIFICATION COMPLETED USING TWO (2) IDENTIFIERS: Name and Date of confirmed by patient verbally. FALL SCREENING: Has the patient had 2 falls in the last year or 1 fall with injury or currently using an Ambulatory Assistive Device (Walker, Cane, Wheelchair, Crutches, etc.)? No PATIENT GENDER DATA: Female. status: : No status: NO. PATIENT RELEVANT IMPLANT DATA REVIEWED: Not Applicable RADIOLOGY DEPARTMENT: General X-ray: Exam(s) Completed: Upper Extremity X-Ray(s): Shoulder, AP / TRUE AP / SUPRA OUTLET right PERIPHERAL IV DATA: Not applicable SIGNED BY: RT Christos(R) March 26, 2023 1:35 PM [facility] 03-26-2023 Note HNO ID: [id number] Author: Carol Garcia APRN.SLD TEACHER Service: ? Author Type: Nurse Practitioner Type: Progress Notes Filed: 03/26/2023 5:03 PM Note Text: This is a 87 year old female who presents today with: Patient presents with: Rash: L inner thigh, L and R side of face x 4 days; using otc hydrocortisone cream HISTORY OF PRESENT ILLNESS: Martha Hung is a 87 year old female. Patient presents with: Rash: L inner thigh, L and R side of face x 4 days; using otc hydrocortisone cream Pt presents today with rash. Noticed on bilateral neck, left inner thigh, and left ring finger, and possibly right forearm. Denies any new medications. Denies any new products. No lip/mouth swelling. A little bit of wheezing with recent bad air quality. Does go out and water shaw. No pets. Right shoulder pain. Has been getting worse. Last imaging in 2019. Knitting exacerbates. Refers soreness and radiates down the arm. Right-handed. Will use tylenol and meloxicam. PAST MEDICAL HISTORY: PAST MEDICAL HISTORY Diagnosis Date Acute, but ill-defined, cerebrovascular disease 1990 Advance care planning 08/07/2022 Will to help Cancer (HCC) Depression DM (diabetes mellitus) (HCC) 07/2016 DM (diabetes mellitus) (HCC) DTFB///BENIGN FANTA SKIN LEG 03/30/2008 Essential hypertension, benign Hemorrhage of gastrointestinal tract, unspecified Internal hemorrhoids without mention of complication Malignant neoplasm of female breast ([facility]) 04/03/2009 Obstructive sleep apnea Occlusion and stenosis of carotid artery without mention of 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 PAST SURGICAL HISTORY OF back surgery TONSILLECTOMY AND ADENOIDECTOMY Tonsil/adenoidectomy TOTAL ABDOMINAL HYSTERECT W/WO RMVL TUBE OVARY Hysterectomy, PRANAV ALLERGIES Quinapril and Zocor [Simvastatin] MEDICATIONS Current Outpatient Medications Medication Sig NIFEdipine ER (PROCARDIA XL) 60 mg 24 hr tablet Take 1 tablet by mouth twice daily. cloNIDine HCl (CATAPRES) 0.2 mg tablet Take 1 tablet by mouth twice daily. nystatin (MYCOSTATIN) cream Apply to affected area twice daily. For fungal rash meloxicam (MOBIC) 15 mg tablet Take 1 tablet by mouth once daily. As needed for pain, Take with food. clonazePAM (KLONOPIN) 0.5 mg tablet Take 1 tablet by mouth twice daily as needed for anxiety for up to 30 days. carvedilol (COREG) 25 mg tablet Take 1 tablet by mouth twice daily. torsemide (DEMADEX) 20 mg tablet Take 2 tablets by mouth once daily. Take with 10 mg tablet in the am to equal 50 mg once daily. lovastatin (MEVACOR) 10 mg tablet Take 1 tablet by mouth three times a week. losartan (COZAAR) 100 mg tablet Take 1 tablet by mouth once daily. citalopram (CELEXA) 20 mg tablet Take 1 tablet by mouth once daily. predniSONE (DELTASONE) 20 mg tablet Take 1 tablet by mouth once daily. As needed for gout flare up Lancets (ONETOUCH ULTRASOFT LANCETS) lancets Test blood sugar(s) 2 times daily. Dx: Type 2 DM - Uncontrolled E11.65 , Insulin: No (Patient taking differently: Test blood sugar(s) 2 times daily. Dx: Type 2 DM - Uncontrolled E11.65 , Insulin: No Once weekly) blood sugar diagnostic (ONETOUCH VERIO TEST STRIPS) test strip Test blood sugar(s) 2 times daily. Dx: Type 2 DM - Uncontrolled E11.65 Insulin: No (Patient taking differently: Test blood sugar(s) 2 times daily. Dx: Type 2 DM - Uncontrolled E11.65 Insulin: No Once weekly) torsemide (DEMADEX) 10 mg tablet Take 1 tablets once daily with 40 mg to total 50 mg a day fluticasone (FLONASE) 50 mcg/actuation nasal spray Use 2 Sprays in each nostril once daily. Rinse mouth after use. (Patient taking differently: Use 2 Sprays in each nostril once daily. Rinse mouth after use. Uses as needed) metroNIDAZOLE 1 % gel Apply 1 application to affected area twice daily. albuterol HFA (PROAIR HFA) 90 mcg/actuation inhaler Inhale 2 Puffs as instructed every 6 hours as needed for Wheezing/Shortness of Breath. FOLIC ACID/MULTIVIT-MIN/LUTEIN (CENTRUM SILVER ORAL) Take by mouth. aspirin, enteric coated (ASPIRIN, ENTERIC COATED) 81 mg EC tablet Take 81 mg by mouth once daily. COMPOUNDED PRESCRIPTION MASTECTOMY LEFT BREAST PROSTHESIS DX C50.919 ONE FORM LEISURE BREAST FORM ONE FORM MASTECTOMY BRAS 12 EACH WITH REFILLS FOR ONE YEAR cyanocobalamin (VITAMIN B-12) 500 mcg tab Take 1 tablet by mouth once daily. Magnesium 250 mg tab Take 1 tablet by mouth once daily. COMPOUNDED PRESCRIPTION CPAP @ 9 cm of water with humidification. Mask (per patient preference) optional chin strap (if i (more content not included)... [facility] 03-26-2023 Miscellaneous Notes Patient calls and provider message reviewed. Patient verbalizes understanding and writes down directions so she doesn't forget. Keshia Márquez RN LM for patient to contact office. Isabela Willis MA Systolic BP has improved on lower dosage of Coreg. Diastolic is still lower. Recommend continuing current regimen, check BP daily and f/u with PCP as scheduled. Call with recurrent lightheadedness/dizziness, BP <100/60 or consistently >140/90. Pt calling with blood pressure readings 03-19-23 8:30 am 108/54 P 60 6:20 pm 123/60 P63 03-20-23 8:10 am 132/62 P70 2:20 pm 106/48 P72 10:15 pm 142/61 P72 03-21-23 8:30 am 127/60 P68 6:30 pm 129/63 P67 7-- 8:45 am 118/57 P63 7:40 pm 129/54 P72 7--23 12:40 pm 127/54 P66 7:20 pm 138/61 P68 7--23 8:10 am 133/58 P 69 6:00 pm 128/66 P71 -- 12:45 pm 108/53 P61 7:40 pm 150/58 P76 7-23 8:05 am 135/60 P70 Pt feels blood pressure is doing better with the half pill of Coreg in am and pm. Pt has not been dizzy or light headed all week since she has started cutting in half. Pt's provider/team unavailable. Routing to telephone directory deliverer. Please advise pt. Olga Segura LPN documented in this encounter [facility] 03-26-2023 Instructions Carol Garcia APRN.[facility] - 03/26/2023 1:29 PM EDT Get the shoulder xray. Start the prednisone. The prednisone taper will be 4 tablets for 3 days; 3 tablets for 3 days; 2 tablets for 3 days; then 1 tablet for 3 days. Please do no use other anti-inflammatories (like ibuprofen, aleve, naproxen, etc) while you are on this medication. documented in this encounter [facility] 03-26-2023 History of Present illness Narrative This is a 87 year old female who presents today with: Patient presents with: Rash: L inner thigh, L and R side of face x 4 days; using otc hydrocortisone cream HISTORY OF PRESENT ILLNESS: Martha Hung is a 87 year old female. Patient presents with: Rash: L inner thigh, L and R side of face x 4 days; using otc hydrocortisone cream Pt presents today with rash. Noticed on bilateral neck, left inner thigh, and left ring finger, and possibly right forearm. Denies any new medications. Denies any new products. No lip/mouth swelling. A little bit of wheezing with recent bad air quality. Does go out and water shaw. No pets. Right shoulder pain. Has been getting worse. Last imaging in 2019. Knitting exacerbates. Refers soreness and radiates down the arm. Right-handed. Will use tylenol and meloxicam. PAST MEDICAL HISTORY: PAST MEDICAL HISTORY Diagnosis Date Acute, but ill-defined, cerebrovascular disease 1990 Advance care planning 08/07/2022 Will to help Cancer (HCC) Depression DM (diabetes mellitus) (HCC) 07/2016 DM (diabetes mellitus) (HCC) DTFB///BENIGN FANTA SKIN LEG 03/30/2008 Essential hypertension, benign Hemorrhage of gastrointestinal tract, unspecified Internal hemorrhoids without mention of complication Malignant neoplasm of female breast (HCC) 04/03/2009 Obstructive sleep apnea Occlusion and stenosis of carotid artery without mention of 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 PAST SURGICAL HISTORY OF back surgery TONSILLECTOMY & ADENOIDECTOMY <AGE 13 Tonsil/adenoidectomy TOTAL ABDOMINAL HYSTERECT W/WO RMVL TUBE OVARY Hysterectomy, PRANAV ALLERGIES Quinapril and Zocor [Simvastatin] MEDICATIONS Current Outpatient Medications Medication Sig NIFEdipine ER (PROCARDIA XL) 60 mg 24 hr tablet Take 1 tablet by mouth twice daily. cloNIDine HCl (CATAPRES) 0.2 mg tablet Take 1 tablet by mouth twice daily. nystatin (MYCOSTATIN) cream Apply to affected area twice daily. For fungal rash meloxicam (MOBIC) 15 mg tablet Take 1 tablet by mouth once daily. As needed for pain, Take with food. clonazePAM (KLONOPIN) 0.5 mg tablet Take 1 tablet by mouth twice daily as needed for anxiety for up to 30 days. carvedilol (COREG) 25 mg tablet Take 1 tablet by mouth twice daily. torsemide (DEMADEX) 20 mg tablet Take 2 tablets by mouth once daily. Take with 10 mg tablet in the am to equal 50 mg once daily. lovastatin (MEVACOR) 10 mg tablet Take 1 tablet by mouth three times a week. losartan (COZAAR) 100 mg tablet Take 1 tablet by mouth once daily. citalopram (CELEXA) 20 mg tablet Take 1 tablet by mouth once daily. predniSONE (DELTASONE) 20 mg tablet Take 1 tablet by mouth once daily. As needed for gout flare up Lancets (ONETOUCH ULTRASOFT LANCETS) lancets Test blood sugar(s) 2 times daily. Dx: Type 2 DM - Uncontrolled E11.65 , Insulin: No (Patient taking differently: Test blood sugar(s) 2 times daily. Dx: Type 2 DM - Uncontrolled E11.65 , Insulin: No Once weekly) blood sugar diagnostic (ONETOUCH VERIO TEST STRIPS) test strip Test blood sugar(s) 2 times daily. Dx: Type 2 DM - Uncontrolled E11.65 Insulin: No (Patient taking differently: Test blood sugar(s) 2 times daily. Dx: Type 2 DM - Uncontrolled E11.65 Insulin: No Once weekly) torsemide (DEMADEX) 10 mg tablet Take 1 tablets once daily with 40 mg to total 50 mg a day fluticasone (FLONASE) 50 mcg/actuation nasal spray Use 2 Sprays in each nostril once daily. Rinse mouth after use. (Patient taking differently: Use 2 Sprays in each nostril once daily. Rinse mouth after use. Uses as needed) metroNIDAZOLE 1 % gel Apply 1 application to affected area twice daily. albuterol HFA (PROAIR HFA) 90 mcg/actuation inhaler Inhale 2 Puffs as instructed every 6 hours as needed for Wheezing/Shortness of Breath. FOLIC ACID/MULTIVIT-MIN/LUTEIN (CENTRUM SILVER ORAL) Take by mouth. aspirin, enteric coated (ASPIRIN, ENTERIC COATED) 81 mg EC tablet Take 81 mg by mouth once daily. COMPOUNDED PRESCRIPTION MASTECTOMY LEFT BREAST PROSTHESIS DX C50.919 ONE FORM LEISURE BREAST FORM ONE FORM MASTECTOMY BRAS 12 EACH WITH REFILLS FOR ONE YEAR cyanocobalamin (VITAMIN B-12) 500 mcg tab Take 1 tablet by mouth once daily. Magnesium 250 mg tab Take 1 tablet by mouth once daily. COMPOUNDED PRESCRIPTION CPAP @ 9 cm of water with humidification. Mask (per patient preference) optional chin strap (if indicated) , filters, tubing, humidifier and lifetime supplies. Pressure change per titration report. Dx. JOSIE 327.23 Cholecalciferol, Vitamin D3, 1,000 unit ORAL Cap Take one(1) tablet daily. MULTIVITAMIN TAB Take one(1) tablet daily. CALCIUM 600 + D(3) 600 MG-200 UNIT TAB Take one(1) tablet two(2) times daily. prednisoLONE acetate (PRED FORTE, ECONOPRED PLUS) 1 % ophthalmic suspension Use 3 Drops in both eyes three times daily as needed. albuterol (PROVENTIL) 5 mg/mL nebu Inhale 0.5 mL as instructed every 4 hours as needed for up to 7 days. 1 DOSE NOW - BACK OFFICE. PLACE 0.5 ML PER DROPPER AND 2.5 ML OF NORMAL SALINE INTO RESERVOIR. Current Facility-Administered Medications Medication Dose Route Frequency perflutren lipid microspheres 1.3 mL in NaCl (PF) 0.9% 10 mL injection (DEFINITY) INTRAVENOUS DIRECTED PRN sodium chloride 0.9 % (flush) 10 mL (BD POSIFLUSH) 10 mL INTRAVENOUS DIRECTED PRN FAMILY HISTORY Problem Relation Age of Onset Diabetes Mother Heart Mother mi other (leg ampt) Mother Heart Father mi Hypertension Sister x 2 Social History Tobacco Use Smoking status: Never Smokeless tobacco: Never Vaping Use Vaping Use: Never used Substance Use Topics Alcohol use: No Drug use: No EXAM: BP 106/58 Pulse 66 Resp 16 SpO2 96% PHYSICAL EXAM: General Appearance: Well appearing, alert, in no acute distress, well-hydrated, well nourished.. Skin: Skin color, texture, turgor normal, maculopapular erythematous rash on the bilateral neck and left inner thigh. Isolated areas of papular erythematous areas also on bilateral forearm and left index finger. Head: Normocephalic, no masses, lesions, tenderness or abnormalities. Eyes: Anicteric sclera. Pupils are equally round and reactive to light. Extraocular movements are intact. positi Lungs: Lungs clear to auscultation. No wheezing, rhonchi, rales.. Heart: RRR without murmur, gallop, or rubs. No ectopy. Neurologic: Gait normal. Shoulder : Location: right shoulder - -anterior/lateral Redness: no Warmth: no Tenderness to palpation: no Swelling: no Range of motion: limited abduction, internal/external rotation Empty can test: + ASSESSMENT/PLAN: 1. Contact dermatitis, unspecified contact dermatitis type, unspecified trigger - ICD9: 692.9, ICD10: L25.9 (primary diagnosis) - Oral Steriod tx -Prednisone taper - discussed skin care of rash - follow up if symptoms persist or worsen. - PREDNISONE 10 MG TABLET 2. Acute pain of right shoulder - ICD9: 719.41, ICD10: M25.511 Will go ahead and start prednisone taper. Get shoulder xray. Follow-up pending results. - XR SHOULDER GENERAL 3V OR MORE AP/TRUE AP/OTHER RIGHT - PREDNISONE 10 MG TABLET Discussed treatment plan and patient voices understanding. Patient's questions answered appropriately. Medications and potential side effects were discussed and patient voices understanding. Return to the office as scheduled or as needed for worsening/no improvement. Carol Garcia APRN.GIORGI documented in this encounter [facility] 03-19-2023 Miscellaneous Notes Phoned patient and given provider's message below with verbalized understanding. Patient agreeable. Please have her start cutting her Coreg in half dose. Take 12.5 mg Coreg in AM and PM. Update office in 1-2 weeks with BLOOD PRESSURE readings and how she is feeling Nico Vargas DO Pt. was light headed this Am took all meds for bp at 8 am and at 10:15 Bp was 95/48. Please advise. Noted, please call Martha and let her know that she can continue to take exactly the same medications and regiment that she is following for her BLOOD PRESSURE medications at this time since the LH/dizziness has resolved. Agree with needing to eat when she takes her medications and agree with her torsemide dosing of 20 mg in AM and 20 mg around lunch or afternoon dose. Nico Vargas DO Called pt to clarify when she takes her BP medications. Pt states takes Carvedilol 25 mg/Nifedipine 60 mg/Clonidine 0.2 mg in the morning between 7-8 am and then repeats these in the evening around 7-730 pm. Also takes Losartan 100 mg with the evening pills. Pt is supposed to take Torsemide 2 20 mg pills plus 1 10 mg pill in the AM. Pt states she has not been taking the 10 mg for quite some time. She also states she does not take both 20 mg tablets in the morning. She has been splitting 20 mg in the AM and 20 mg in the PM. On 03/08 at around 8 am, pt states her BP was 144/60 pulse 72 and on 03/12 around 8 am, her BP was 119/53 and pulse 65. Pt also checks BS in the AM on occasion. All readings this month have been greater than 100. Today's reading was 136 at 0830. Pt states she has been feeling better. She has been eating as soon as she takes her medications in the morning. Pt reports she has been getting up more slowly which has been helpful. Denies any more episodes of spinning, dizziness and lightheadedness. Please clarify when she is taking each and how for her BLOOD PRESSURE medications so I can adjust down one of her evening doses of medication. Okay to gently exercise as well Nico Vargas DO Pt called in and was given following stress test results: Martha, your stress test looks good, no concerns. Hortensia Thao APRN.SLD TEACHER Pt states Dr Vargas told her to track her BP and she has been in the mornings. She states she was 95/55 and has been 110-101/50-60s. She states she hasn't been feeling well in the am, slightly dizzy and lightheaded but has not passed out reports her HR feels like it is fast and her arms will go limp then she will be ok. Pt was told to make sure she is getting up slower in the morning and taking her morning meds with food. She said a couple weeks ago she was having dizzy spells where the room felt like it was spinning, but that only lasted a a couple days. I said this is vertigo and deals with the crystals in your ears and the provider could order PT referral. Pt also reports she has been feeling more tired and sleeping more and was wondering what could be causing this. Pt was asking that since her stress test came back normal if she could go back to working out at the [facility]. documented in this encounter [facility] 02-24-2023 Note HNO ID: [id number] Author: RT Isa(R) Service: Nuclear Medicine Author Type: Technologist Type: Progress Notes Filed: 02/24/2023 12:32 PM Note Text: RADIOLOGY SERVICE PROGRESS NOTE SERVICE DATE: 02/24/2023 SERVICE TIME: 08:43 AM PATIENT IDENTITY VERIFICATION COMPLETED USING TWO (2) STANDARD IDENTIFIERS: Name and Date of confirmed by patient verbally FALL SCREENING: Has the patient had 2 falls in the last year or 1 fall with injury or currently using an Ambulatory Assistive Device (Walker, Cane, Wheelchair, Crutches, etc.)? No PATIENT GENDER DATA: .female : No ALLERGIES: Reviewed and unchanged MEDICATIONS REVIEWED: No PATIENT RELEVANT IMPLANT DATA REVIEWED: Not Applicable CREATININE: Creatinine Date Value Ref Range Status 01/27/2023 0.88 0.58 - 0.96 mg/dL Final 07/31/2022 0.86 0.58 - 0.96 mg/dL Final 01/29/2022 0.92 0.58 - 0.96 mg/dL Final Estimated Glomerular Filtration Rate Date Value Ref Range Status 01/27/2023 64 >=60 mL/min/1.73m? Final Comment: Estimated Glomerular Filtration Rate (eGFR) is calculated using the 2020 CKD-EPI creatinine equation. This equation utilizes serum creatinine, sex, and age as parameters. The creatinine assay has traceable calibration to isotope dilution-mass spectrometry. Refer to KDIGO guidelines for clinical interpretation. In patients with unstable renal function, e.g. those with acute kidney injury, the eGFR may not accurately reflect actual GFR. eGFR- Date Value Ref Range Status 08/28/2021 >60 Final P.O.C.T. RESULTS: N/A February 24, [address] PERFORMED: No IV SITE: Ambulatory: A peripheral IV was started in the Right forearm with a Angio cath: 22 gauge. POST EXAM PIV STATUS: Discontinued PROCEDURE TYPE: NM Stress: 11.4 mCi [id number] was administered IV for Rest Imaging at 08:50 by Melina Raza. 29.9 mCi [id number] was administered IV for Stress Imaging at 10:33 by Melina Raza. ADMINISTRATION TIME: PATIENT DISCHARGED TO: Ambulatory patient, left [place] department area.. A Diagnostic radioactive procedure has taken place, with no further precautions necessary other than routine body substance precautions. More information regarding radiation safety can be found using this link: [email or web address]%20Medi [email or web address] SIGNATURE: RT Isa(R) PATIENT NAME: Martha Hung DATE: February 24, 2023 TIME: 11:35 AM PAGER/CONTACT #: [facility] 02-24-2023 History of Present illness Narrative RADIOLOGY SERVICE PROGRESS NOTE SERVICE DATE: 02/24/2023 SERVICE TIME: 08:43 AM PATIENT IDENTITY VERIFICATION COMPLETED USING TWO (2) STANDARD IDENTIFIERS: Name and Date of confirmed by patient verbally FALL SCREENING: Has the patient had 2 falls in the last year or 1 fall with injury or currently using an Ambulatory Assistive Device (Walker, Cane, Wheelchair, Crutches, etc.)? No PATIENT GENDER DATA: .female : No ALLERGIES: Reviewed and unchanged MEDICATIONS REVIEWED: No PATIENT RELEVANT IMPLANT DATA REVIEWED: Not Applicable CREATININE: Creatinine Date Value Ref Range Status 01/27/2023 0.88 0.58 - 0.96 mg/dL Final 07/31/2022 0.86 0.58 - 0.96 mg/dL Final 01/29/2022 0.92 0.58 - 0.96 mg/dL Final Estimated Glomerular Filtration Rate Date Value Ref Range Status 01/27/2023 64 >=60 mL/min/1.73m Final Comment: Estimated Glomerular Filtration Rate (eGFR) is calculated using the 2020 CKD-EPI creatinine equation. This equation utilizes serum creatinine, sex, and age as parameters. The creatinine assay has traceable calibration to isotope dilution-mass spectrometry. Refer to KDIGO guidelines for clinical interpretation. In patients with unstable renal function, e.g. those with acute kidney injury, the eGFR may not accurately reflect actual GFR. eGFR- Date Value Ref Range Status 08/28/2021 >60 Final P.O.C.T. RESULTS: N/A February 24, [address] PERFORMED: No IV SITE: Ambulatory: A peripheral IV was started in the Right forearm with a Angio cath: 22 gauge. POST EXAM PIV STATUS: Discontinued PROCEDURE TYPE: NM Stress: 11.4 mCi [id number] was administered IV for Rest Imaging at 08:50 by Melina Raza. 29.9 mCi [id number] was administered IV for Stress Imaging at 10:33 by Melina Raza. ADMINISTRATION TIME: PATIENT DISCHARGED TO: Ambulatory patient, left [place] department area.. A Diagnostic radioactive procedure has taken place, with no further precautions necessary other than routine body substance precautions. More information regarding radiation safety can be found using this link: [email or web address] %[email or web address] SIGNATURE: RT Isa(R) PATIENT NAME: Martha Hung DATE: February 24, 2023 TIME: 11:35 AM PAGER/CONTACT #: documented in this encounter [facility] 02-19-2023 Miscellaneous Notes Called and review stress test instructions with the patient. Tessa Lira RN documented in this encounter [facility] 02-04-2023 Note HNO ID: [id number] Author: Nico Vargas, DO Service: ? Author Type: Physician Type: Progress Notes Filed: 02/04/2023 9:22 AM Note Text: Patient presents with: Yearly Exam HPI: Martha Hung is a 87 year old female who presents to the office today for review of health conditions. Concerns today: Gout, stable Anxiety, taking klonopin as needed Has been having some occasional dyspnea and chest pain, had an ECG and ECHO which was stable, no signs of heart failure, has a scheduled nuclear stress test. Ms. Hung has past history of diabetes. Since our last visit she denies excessive thirst or increased frequency of urination, numbness, tingling or pain in extremities, new or unusual visual symptoms, and low sugar/hypoglycemic reactions. Depression- no. Follows a diabetic diet most of the time. She is compliant with medication(s) and is tolerating med(s) without any side effects. She reports checking her glucose on a once a day schedule with sugars in the <150 range. Patient's last HgA1C was Hemoglobin A1C (%) Date Value 01/27/2023 6.2 07/31/2022 6.4 08/28/2021 6.5 05/10/2021 6.5 ) Last Ophthalmology exam was within the past 12 months Ms. Hung reports history of hyperlipidemia. Current therapy includes lovastatin (Mevacor) 10 mg. Denies side effects of muscle weakness or achiness. Her most recent lipid panels are reviewed. Cholesterol, Total (mg/dL) Date Value 01/27/2023 184 08/28/2021 219 HDL Cholesterol (mg/dL) Date Value 01/27/2023 35 08/28/2021 35 LDL Cholesterol (mg/dL) Date Value 01/27/2023 85 08/28/2021 Unable to calculate due to increased Triglycerides. See LDL-Chol, Direct. Triglyceride (mg/dL) Date Value 01/27/2023 322 08/28/2021 423 Ms. Hung indicates a history of hypertension and states that she is feeling well and denies any symptoms referable to elevated blood pressure. Specifically denies headache, chest pain, palpitations, dyspnea, and peripheral edema. Patient denies any side effects of her medication(s) and is compliant with their regimen. Last 3 Encounter BP Readings: Date: BP: 02/04/2023 124/80 01/06/2023 110/58 01/01/2023 126/68 She watches her diet for sodium, low fat and low cholesterol some of the time. She does not check BP's generally. Martha gets minimal exercise. PAST MEDICAL HISTORY Diagnosis Date Acute, but ill-defined, cerebrovascular disease 1990 Advance care planning 08/07/2022 Will to help Cancer (HCC) Depression DM (diabetes mellitus) (HCC) 07/2016 DM (diabetes mellitus) (HCC) DTFB///BENIGN FANTA SKIN LEG 03/30/2008 Essential hypertension, benign Hemorrhage of gastrointestinal tract, unspecified Internal hemorrhoids without mention of complication Malignant neoplasm of female breast (HCC) 04/03/2009 Obstructive sleep apnea Occlusion and stenosis of carotid artery without mention of 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 PAST SURGICAL HISTORY OF back surgery TONSILLECTOMY AND ADENOIDECTOMY Tonsil/adenoidectomy TOTAL ABDOMINAL HYSTERECT W/WO RMVL TUBE OVARY Hysterectomy, PRANAV Social History Tobacco Use Smoking status: Never Smokeless tobacco: Never Vaping Use Vaping Use: Never used Substance Use Topics Alcohol use: No Drug use: No FAMILY HISTORY Problem Relation Age of Onset Diabetes Mother Heart Mother mi other (leg ampt) Mother Heart Father mi Hypertension Sister x 2 Allergies: ALLERGIES Allergen Reactions Quinapril Cough Zocor [Simvastatin] Intolerance mucsle pain Current Meds: clonazePAM (KLONOPIN) 0.5 mg tabletTake 1 tablet by mouth twice daily as needed for anxiety for up to 30 days.Disp: 40 tabletRfl: 2 carvedilol (COREG) 25 mg tabletTake 1 tablet by mouth twice daily.Disp: 180 tabletRfl: 3 torsemide (DEMADEX) 20 mg tabletTake 2 tablets by mouth once daily. Take with 10 mg tablet in the am to equal 50 mg once daily.Disp: 180 tabletRfl: 3 lovastatin (MEVACOR) 10 mg tabletTake 1 tablet by mouth three times a week.Disp: 36 tabletRfl: 3 losartan (COZAAR) 100 mg tabletTake 1 tablet by mouth once daily.Disp: 90 tabletRfl: 3 predniSONE (DELTASONE) 20 mg tabletTake 1 tablet by mouth once daily. As needed for gout flare upDisp: 7 tabletRfl: 1 Lancets (ONETOUCH ULTRASOFT LANCETS) lancetsTest blood sugar(s) 2 times daily. Dx: Type 2 DM - Uncontrolled E11.65 , Insulin: NoDisp: 100 EachRfl: 11 (Patient taking differently: Test blood sugar(s) 2 times daily. Dx: Type 2 DM - Uncontrolled E11.65 , Insulin: No Once weekly) blood sugar diagnostic (O (more content not included)... [facility] 01-29-2023 Miscellaneous Notes Order faxed as below. Order placed. Hortensia Thao APRN.CNP Martha Hung is calling Nico Vargas DO today to request order for [facility] be faxed over before 11:00 a.m. Patient has an appointment with them and cannot be seen without the order. Please fax to [phone] Please call patient when sent. Patient has been identified by name and birthdate. Duration of symptoms: N/A Person calling: self Call patient at: at home [phone] (home) [phone] (cell) Was an appointment scheduled: No Closing statement: Symptom Call: Thank you for calling [facility], your call is very important. A nurse will call in approximately 2-4 hours during business hours. If this is an emergency, please contact 911. Lexi Viramontes documented in this encounter [facility] 01-08-2023 Miscellaneous Notes PDMP website checked and validated. All prescriptions have been APPROPRIATELY filled. No suspicious activity was identified. 01/08/2023 by Maciel Reynaga APRN.CNP The following approved medication requests have been transmitted electronically. Requested Prescriptions Signed Prescriptions Disp Refills clonazePAM (KLONOPIN) 0.5 mg tablet 40 tablet 2 Sig: Take 1 tablet by mouth twice daily as needed for anxiety for up to 30 days. Authorizing Provider: MACIEL REYNAGA APRN.CNP [facility] 01/06/23 NOV 02/04/23 Isabela Willis MA Patient states she talked with Provider on 01-06-23 regarding getting this medication and it was not sent to the pharmacy. If this can please be sent. Patient has been identified by name and date of : Yes Requested Prescriptions Pending Prescriptions Disp Refills clonazePAM (KLONOPIN) 0.5 mg tablet 40 tablet 2 Sig: Take 1 tablet by mouth twice daily as needed for anxiety for up to 30 days. RX INSTRUCTIONS: Patient requesting a call when RX is approved and sent to the pharmacy. Please call patient at: [phone]. Radha Segura Pss documented in this encounter [facility] 01-06-2023 Note HNO ID: [id number] Author: Maciel Reynaga APRN.SLD TEACHER Service: ? Author Type: Nurse Practitioner Type: Progress Notes Filed: 01/06/2023 11:24 AM Note Text: Chief Complaint Patient presents with: Cellulitis HPI Martha Hung is a 87 year old female who presents here today for Above Complaints. Martha is an established patient of Dr. Vargas, and myself. Concerns today.. Follow-up of cellulitis dx from 01/01/23. Given bactrim antibiotic BID x 10 days. Cellulitis defined with pen at last appt. Today... Pt reports area feels much better. Much less red, much less pressure/tenderness around area, and abrasion is completely scabbed over. Tolerating antibiotic well without difficulties. ECHO scheduled for Friday. Stress test scheduled in January. Daughter, age 64, admitted to hospital last night d/t cardiac concerns and possible NH. Getting cardiac cath done today. Pt reports feeling stable, no SOB, CP, dizziness, dyspnea, etc worse than prior appt. Last 14 Encounter BP Readings: Date: BP: 01/06/2023 110/58 01/01/2023 126/68 08/07/2022 138/70 04/15/2022 110/62 02/04/2022 110/60 08/28/2021 120/60 05/15/2021 120/80 02/09/2021 120/60 08/01/2020 120/80 07/12/2020 120/60 06/14/2020 100/60 08/09/2019 166/82 07/21/2019 150/70 04/25/2019 168/91 Past medical history, appointments, medications, allergies reviewed. Previous Medical History PAST MEDICAL HISTORY Diagnosis Date Acute, but ill-defined, cerebrovascular disease 1990 Advance care planning 08/07/2022 Will to help Cancer ([facility]) Depression DM (diabetes mellitus) ([facility]) 07/2016 DM (diabetes mellitus) ([facility]) DTFB///BENIGN [place] SKIN LEG 03/30/2008 Essential hypertension, benign Hemorrhage of gastrointestinal tract, unspecified Internal hemorrhoids without mention of complication Malignant neoplasm of female breast ([facility]) 04/03/2009 Obstructive sleep apnea Occlusion and stenosis of carotid artery without mention of cerebral infarction 40% left Other and unspecified hyperlipidemia Personal history of other diseases of circulatory system 12/10/2005 Previous Surgical History PAST SURGICAL HISTORY Procedure Laterality Date COLONOSCOPY FLX DX W/COLLJ SPEC WHEN PFRMD 04/24/2006 Colonoscopy LIG/TRNSXJ FLP TUBE ABDL/VAG APPR UNI/BI Tubal ligation MAST RAD W/PECTORAL MUSCLES AXILLARY LYMPH NODES 04/21/09 left breast due to cancer. PAST SURGICAL HISTORY OF back surgery TONSILLECTOMY AND ADENOIDECTOMY Tonsil/adenoidectomy TOTAL ABDOMINAL HYSTERECT W/WO RMVL TUBE OVARY Hysterectomy, PRANAV Family History FAMILY HISTORY Problem Relation Age of Onset Diabetes Mother Heart Mother mi other (leg ampt) Mother Heart Father mi Hypertension Sister x 2 Patient Allergies ALLERGIES Allergen Reactions Quinapril Cough Zocor [Simvastatin] Intolerance mucsle pain Current Medications Current Outpatient Medications on File Prior to Visit Medication Sig sulfamethoxazole-trimethoprim (BACTRIM DS) 800-160 mg per tablet Take 1 tablet by mouth twice daily for 10 days. benzonatate (TESSALON PERLES) 100 mg capsule Take 1 capsule by mouth three times daily as needed. carvedilol (COREG) 25 mg tablet Take 1 tablet by mouth twice daily. torsemide (DEMADEX) 20 mg tablet Take 2 tablets by mouth once daily. Take with 10 mg tablet in the am to equal 50 mg once daily. cloNIDine HCl (CATAPRES) 0.2 mg tablet Take 1 tablet by mouth twice daily. lovastatin (MEVACOR) 10 mg tablet Take 1 tablet by mouth three times a week. losartan (COZAAR) 100 mg tablet Take 1 tablet by mouth once daily. citalopram (CELEXA) 20 mg tablet Take 1 tablet by mouth once daily. meloxicam (MOBIC) 15 mg tablet Take 0.5 tablets by mouth once daily. Take with food. NIFEdipine ER (PROCARDIA XL) 60 mg 24 hr tablet Take 1 tablet by mouth twice daily. predniSONE (DELTASONE) 20 mg tablet Take 1 tablet by mouth once daily. As needed for gout flare up Lancets (ONETOUCH ULTRASOFT LANCETS) lancets Test blood sugar(s) 2 times daily. Dx: Type 2 DM - Uncontrolled E11.65 , Insulin: No blood sugar diagnostic (ONETOUCH VERIO TEST STRIPS) test strip Test blood sugar(s) 2 times daily. Dx: Type 2 DM - Uncontrolled E11.65 Insulin: No torsemide (DEMADEX) 10 mg tablet Take 1 tablets once daily with 40 mg to total 50 mg a day clonazePAM (KLONOPIN) 0.5 mg tablet Take 1 tablet by mouth twice daily as needed for Anxiety for up to 30 days. fluticasone (FLONASE) 50 mcg/actuation nasal spray Use 2 Sprays in each nostril once daily. Rinse mouth after use. metroNIDAZOLE 1 % gel Apply 1 application to affected area twice daily. albuterol HFA (PROAIR HFA) 90 mcg/actuation inhaler Inhale 2 Puffs as instructed every 6 hours as needed for Wheezing/Shortness of Breath. prednisoLONE acetate (PRED FORTE, ECONOPRED PLUS) 1 % ophthalmic suspension Use 3 Drops in both eyes three times daily as needed. FOLIC ACID/MULTIVIT-MIN/L (more content not included)... [facility] 01-06-2023 History of Present illness Narrative Chief Complaint Patient presents with: Cellulitis HPI Martha Hung is a 87 year old female who presents here today for Above Complaints. Martha is an established patient of Dr. Vargas, DO and myself. Concerns today.. Follow-up of cellulitis dx from 01/01/23. Given bactrim antibiotic BID x 10 days. Cellulitis defined with pen at last appt. Today... Pt reports area feels much better. Much less red, much less pressure/tenderness around area, and abrasion is completely scabbed over. Tolerating antibiotic well without difficulties. ECHO scheduled for Friday. Stress test scheduled in January. Daughter, age 64, admitted to hospital last night d/t cardiac concerns and possible NH. Getting cardiac cath done today. Pt reports feeling stable, no SOB, CP, dizziness, dyspnea, etc worse than prior appt. Last 14 Encounter BP Readings: Date: BP: 01/06/2023 110/58 01/01/2023 126/68 08/07/2022 138/70 04/15/2022 110/62 02/04/2022 110/60 08/28/2021 120/60 05/15/2021 120/80 02/09/2021 120/60 08/01/2020 120/80 07/12/2020 120/60 06/14/2020 100/60 08/09/2019 166/82 07/21/2019 150/70 04/25/2019 168/91 Past medical history, appointments, medications, allergies reviewed. Previous Medical History PAST MEDICAL HISTORY Diagnosis Date Acute, but ill-defined, cerebrovascular disease 1990 Advance care planning 08/07/2022 Will to help Cancer ([facility]) Depression DM (diabetes mellitus) ([facility]) 07/2016 DM (diabetes mellitus) ([facility]) DTFB///BENIGN FANTA SKIN LEG 03/30/2008 Essential hypertension, benign Hemorrhage of gastrointestinal tract, unspecified Internal hemorrhoids without mention of complication Malignant neoplasm of female breast ([facility]) 04/03/2009 Obstructive sleep apnea Occlusion and stenosis of carotid artery without mention of cerebral infarction 40% left Other and unspecified hyperlipidemia Personal history of other diseases of circulatory system 12/10/2005 Previous Surgical History PAST SURGICAL HISTORY Procedure Laterality Date COLONOSCOPY FLX DX W/COLLJ SPEC WHEN PFRMD 04/24/2006 Colonoscopy LIG/TRNSXJ FLP TUBE ABDL/VAG APPR UNI/BI Tubal ligation MAST RAD W/PECTORAL MUSCLES AXILLARY LYMPH NODES 04/21/09 left breast due to cancer. PAST SURGICAL HISTORY OF back surgery TONSILLECTOMY & ADENOIDECTOMY <AGE 13 Tonsil/adenoidectomy TOTAL ABDOMINAL HYSTERECT W/WO RMVL TUBE OVARY Hysterectomy, PRANAV Family History FAMILY HISTORY Problem Relation Age of Onset Diabetes Mother Heart Mother mi other (leg ampt) Mother Heart Father mi Hypertension Sister x 2 Patient Allergies ALLERGIES Allergen Reactions Quinapril Cough Zocor [Simvastatin] Intolerance mucsle pain Current Medications Current Outpatient Medications on File Prior to Visit Medication Sig sulfamethoxazole-trimethoprim (BACTRIM DS) 800-160 mg per tablet Take 1 tablet by mouth twice daily for 10 days. benzonatate (TESSALON PERLES) 100 mg capsule Take 1 capsule by mouth three times daily as needed. carvedilol (COREG) 25 mg tablet Take 1 tablet by mouth twice daily. torsemide (DEMADEX) 20 mg tablet Take 2 tablets by mouth once daily. Take with 10 mg tablet in the am to equal 50 mg once daily. cloNIDine HCl (CATAPRES) 0.2 mg tablet Take 1 tablet by mouth twice daily. lovastatin (MEVACOR) 10 mg tablet Take 1 tablet by mouth three times a week. losartan (COZAAR) 100 mg tablet Take 1 tablet by mouth once daily. citalopram (CELEXA) 20 mg tablet Take 1 tablet by mouth once daily. meloxicam (MOBIC) 15 mg tablet Take 0.5 tablets by mouth once daily. Take with food. NIFEdipine ER (PROCARDIA XL) 60 mg 24 hr tablet Take 1 tablet by mouth twice daily. predniSONE (DELTASONE) 20 mg tablet Take 1 tablet by mouth once daily. As needed for gout flare up Lancets (ONETOUCH ULTRASOFT LANCETS) lancets Test blood sugar(s) 2 times daily. Dx: Type 2 DM - Uncontrolled E11.65 , Insulin: No blood sugar diagnostic (ONETOUCH VERIO TEST STRIPS) test strip Test blood sugar(s) 2 times daily. Dx: Type 2 DM - Uncontrolled E11.65 Insulin: No torsemide (DEMADEX) 10 mg tablet Take 1 tablets once daily with 40 mg to total 50 mg a day clonazePAM (KLONOPIN) 0.5 mg tablet Take 1 tablet by mouth twice daily as needed for Anxiety for up to 30 days. fluticasone (FLONASE) 50 mcg/actuation nasal spray Use 2 Sprays in each nostril once daily. Rinse mouth after use. metroNIDAZOLE 1 % gel Apply 1 application to affected area twice daily. albuterol HFA (PROAIR HFA) 90 mcg/actuation inhaler Inhale 2 Puffs as instructed every 6 hours as needed for Wheezing/Shortness of Breath. prednisoLONE acetate (PRED FORTE, ECONOPRED PLUS) 1 % ophthalmic suspension Use 3 Drops in both eyes three times daily as needed. FOLIC ACID/MULTIVIT-MIN/LUTEIN (CENTRUM SILVER ORAL) Take by mouth. aspirin, enteric coated (ASPIRIN, ENTERIC COATED) 81 mg EC tablet Take 81 mg by mouth once daily. COMPOUNDED PRESCRIPTION MASTECTOMY LEFT BREAST PROSTHESIS DX C50.919 ONE FORM LEISURE BREAST FORM ONE FORM MASTECTOMY BRAS 12 EACH WITH REFILLS FOR ONE YEAR cyanocobalamin (VITAMIN B-12) 500 mcg tab Take 1 tablet by mouth once daily. Magnesium 250 mg tab Take 1 tablet by mouth once daily. albuterol (PROVENTIL) 5 mg/mL nebu Inhale 0.5 mL as instructed every 4 hours as needed for up to 7 days. 1 DOSE NOW - BACK OFFICE. PLACE 0.5 ML PER DROPPER AND 2.5 ML OF NORMAL SALINE INTO RESERVOIR. COMPOUNDED PRESCRIPTION CPAP @ 9 cm of water with humidification. Mask (per patient preference) optional chin strap (if indicated) , filters, tubing, humidifier and lifetime supplies. Pressure change per titration report. Dx. JOSIE 327.23 Cholecalciferol, Vitamin D3, 1,000 unit ORAL Cap Take one(1) tablet daily. MULTIVITAMIN TAB Take one(1) tablet daily. CALCIUM 600 + D(3) 600 MG-200 UNIT TAB Take one(1) tablet two(2) times daily. Current Facility-Administered Medications on File Prior to Visit Medication perflutren lipid microspheres 1.3 mL in NaCl (PF) 0.9% 10 mL injection (DEFINITY) sodium chloride 0.9 % (flush) 10 mL (BD POSIFLUSH) Social History Social History Tobacco Use Smoking status: Never Smokeless tobacco: Never Vaping Use Vaping Use: Never used Substance Use Topics Alcohol use: No Drug use: No REVIEW OF SYSTEMS: as above Reviewed relevant PMHx, PSHx, Social Hx, current medications and allergies. Review of Symptoms REVIEW OF SYSTEMS See HPI. All other systems are negative. EXAM: BP 110/58 Pulse 70 Resp 16 Ht 157.5 cm (5' 2 ) Wt 68 kg (150 lb) SpO2 93% BMI 27.44 kg/m General Appearance: Well appearing, alert, in no acute distress, well-hydrated, well nourished.. Skin: Skin color, texture, turgor normal, no suspicious rashes or lesions. Cellulitis greatly improved, erythema significantly decreased from pen marking. Still slightly red surrounding border of abrasion. No swelling, warmth, or tenderness currently. Head: Normocephalic, no masses, lesions, tenderness or abnormalities. Lungs: Lungs clear to auscultation. No wheezing, rhonchi, rales.. Heart: RRR without murmur, gallop, or rubs. No ectopy. Health Maintenance List HBA1C due on 01/28/2023 URINE ALBUMIN:CREATININE RATIO due on 07/31/2023 LDL CHOLESTEROL due on 07/31/2023 DIABETIC FOOT EXAM due on 08/07/2023 DILATED RETINAL EXAM due on 12/31/2023 DTAP,TDAP,TD(2 - Td or Tdap) due on 05/15/2027 BONE DENSITY Completed INFLUENZA Completed SHINGRIX VACCINE Completed COVID-19 VACCINE Completed PNEUMOCOCCAL: 65+ Completed ADVANCE DIRECTIVE DISCUSSION Discontinued ASSESSMENT/PLAN: 1. Cellulitis of skin - ICD9: 682.9, ICD10: L03.90 (primary diagnosis) Improving. Almost resolved. Continue and finish entire antibiotic regimen as discussed. 2. Essential hypertension, benign - ICD9: 401.1, ICD10: I10 - good control, refilled meds. - Continue current medication(s) - Encouraged dietary sodium restriction/DASH diet - Recommended regular aerobic exercise. - Recommend home blood pressure monitoring, to bring results in on next visit - Goal of BP <130/80 - Recommended no refined sugar, low refined starch, healthy oil intake (olive oil), healthy protein (fish) along the lines of the Mediterranean diet. - CLONIDINE HCL 0.2 MG TABLET 3. ELIZABETH (dyspnea on exertion) - ICD9: 786.09, ICD10: R06.09 Stable. Continue with stress testing and ECHO as ordered and follow-up as scheduled to discuss results. Updated family medical cardiac history. RTO as scheduled. Sooner if needed. Prescription instructions reviewed with patient as applicable. Potential red flag symptoms discussed with the patient. Reviewed appropriate action plan to take if red flag symptoms occur. Patient agreeable to treatment plan. Maciel Murray APRN.CNP [id number] [place] [address] documented in this encounter [facility] 01-01-2023 Note HNO ID: [id number] Author: Maciel Reynaga APRN.CNP Service: ? Author Type: Nurse Practitioner Type: Progress Notes Filed: 01/01/2023 9:58 AM Note Text: Chief Complaint Patient presents with: Abrasion: LEFT lower extremity x 2 weeks HPI Martha Hung is a 87 year old female who presents here today for Above Complaints. Martha is an established patient of Dr. Vargas, DO and myself. Concerns today... Sore on leg --- Abrasion to LLE x 2 weeks from scratching her with his toe nail in the middle of the night. Noticed about 3-4 days ago that it scabbed over but surrounding area is red, taunt, tender, and warm to touch. Has been putting triple antibiotic ointment on area with minimal relief. Recurrent UTI --- Treated for UTI x2 while in [place]. Wanting to make sure this cleared up d/t recurrent back to back. Was treatment with antibiotic about 2 weeks ago. Pt reports symptoms improved. No dysuria, urinary frequency, urinary urgency or hematuria currently. SOB on exertion --- Slowly progressing SOB on exertion over the past 2 years. Just walking down the hallway now will make her out of breath. Wakes up in the morning and has trouble getting dressed without getting SOB. Sister recently d/t CHF and cardiac complications. ECHO and monitor and storage bin tender done about 1.5 years ago -- results in chart. Has upcoming appointment with Dr. Vargas to discuss this but wondering if something should be done sooner. Past medical history, appointments, medications, allergies reviewed. Previous Medical History PAST MEDICAL HISTORY Diagnosis Date Acute, but ill-defined, cerebrovascular disease 1990 Advance care planning 08/07/2022 Will to help Cancer (HCC) Depression DM (diabetes mellitus) (HCC) 07/2016 DM (diabetes mellitus) (HCC) DTFB///BENIGN FANT[place] SKIN LEG 03/30/2008 Essential hypertension, benign Hemorrhage of gastrointestinal tract, unspecified Internal hemorrhoids without mention of complication Malignant neoplasm of female breast ([facility]CC) 04/03/2009 Obstructive sleep apnea Occlusion and stenosis of carotid artery without mention of cerebral infarction 40% left Other and unspecified hyperlipidemia Personal history of other diseases of circulatory system 12/10/2005 Previous Surgical History PAST SURGICAL HISTORY Procedure Laterality Date COLONOSCOPY FLX DX W/COLLJ SPEC WHEN PFRMD 04/24/2006 Colonoscopy LIG/TRNSXJ FLP TUBE ABDL/VAG APPR UNI/BI Tubal ligation MAST RAD W/PECTORAL MUSCLES AXILLARY LYMPH NODES 04/21/09 left breast due to cancer. PAST SURGICAL HISTORY OF back surgery TONSILLECTOMY AND ADENOIDECTOMY Tonsil/adenoidectomy TOTAL ABDOMINAL HYSTERECT W/WO RMVL TUBE OVARY Hysterectomy, PRANAV Family History FAMILY HISTORY Problem Relation Age of Onset Diabetes Mother Heart Mother mi other (leg ampt) Mother Heart Father mi Hypertension Sister x 2 Patient Allergies ALLERGIES Allergen Reactions Quinapril Cough Zocor [Simvastatin] Intolerance mucsle pain Current Medications Current Outpatient Medications on File Prior to Visit Medication Sig carvedilol (COREG) 25 mg tablet Take 1 tablet by mouth twice daily. torsemide (DEMADEX) 20 mg tablet Take 2 tablets by mouth once daily. Take with 10 mg tablet in the am to equal 50 mg once daily. cloNIDine HCl (CATAPRES) 0.2 mg tablet Take 1 tablet by mouth twice daily. lovastatin (MEVACOR) 10 mg tablet Take 1 tablet by mouth three times a week. losartan (COZAAR) 100 mg tablet Take 1 tablet by mouth once daily. citalopram (CELEXA) 20 mg tablet Take 1 tablet by mouth once daily. meloxicam (MOBIC) 15 mg tablet Take 0.5 tablets by mouth once daily. Take with food. NIFEdipine ER (PROCARDIA XL) 60 mg 24 hr tablet Take 1 tablet by mouth twice daily. predniSONE (DELTASONE) 20 mg tablet Take 1 tablet by mouth once daily. As needed for gout flare up Lancets (ONETOUCH ULTRASOFT LANCETS) lancets Test blood sugar(s) 2 times daily. Dx: Type 2 DM - Uncontrolled E11.65 , Insulin: No blood sugar diagnostic (ONETOUCH VERIO TEST STRIPS) test strip Test blood sugar(s) 2 times daily. Dx: Type 2 DM - Uncontrolled E11.65 Insulin: No torsemide (DEMADEX) 10 mg tablet Take 1 tablets once daily with 40 mg to total 50 mg a day clonazePAM (KLONOPIN) 0.5 mg tablet Take 1 tablet by mouth twice daily as needed for Anxiety for up to 30 days. fluticasone (FLONASE) 50 mcg/actuation nasal spray Use 2 Sprays in each nostril once daily. Rinse mouth after use. metroNIDAZOLE 1 % gel Apply 1 application to affected area twice daily. albuterol HFA (PROAIR HFA) 90 mcg/actuation inhaler Inhale 2 Puffs as instructed every 6 hours as needed for Wheezing/Shortness of Breath. prednisoLONE acetate (PRED FORTE, ECONOPRED PLUS) 1 % ophthalmic suspension Use 3 Drops in both eyes three times daily as needed. FOLIC ACID/MULTIVIT-MIN/LUTEIN (CENTRUM SILVER ORAL) Take by mouth. aspirin, (more content not included)... [facility] 01-01-2023 Miscellaneous Notes Addended by: MACIEL REYNAGA on: 01/01/2023 10:03 AM Modules accepted: Orders documented in this encounter [facility] 01-01-2023 History of Present illness Narrative Chief Complaint Patient presents with: Abrasion: LEFT lower extremity x 2 weeks HPI Martha Hung is a 87 year old female who presents here today for Above Complaints. Martha is an established patient of Dr. Vargas, DO and myself. Concerns today... Sore on leg --- Abrasion to LLE x 2 weeks from scratching her with his toe nail in the middle of the night. Noticed about 3-4 days ago that it scabbed over but surrounding area is red, taunt, tender, and warm to touch. Has been putting triple antibiotic ointment on area with minimal relief. Recurrent UTI --- Treated for UTI x2 while in [place]. Wanting to make sure this cleared up d/t recurrent back to back. Was treatment with antibiotic about 2 weeks ago. Pt reports symptoms improved. No dysuria, urinary frequency, urinary urgency or hematuria currently. SOB on exertion --- Slowly progressing SOB on exertion over the past 2 years. Just walking down the hallway now will make her out of breath. Wakes up in the morning and has trouble getting dressed without getting SOB. Sister recently d/t CHF and cardiac complications. ECHO and monitor and storage bin tender done about 1.5 years ago -- results in chart. Has upcoming appointment with Dr. Vargas to discuss this but wondering if something should be done sooner. Past medical history, appointments, medications, allergies reviewed. Previous Medical History PAST MEDICAL HISTORY Diagnosis Date Acute, but ill-defined, cerebrovascular disease 1990 Advance care planning 08/07/2022 Will to help Cancer (HCC) Depression DM (diabetes mellitus) ([facility]) 07/2016 DM (diabetes mellitus) ([facility]) DTFB///BENIGN FANTA SKIN LEG 03/30/2008 Essential hypertension, benign Hemorrhage of gastrointestinal tract, unspecified Internal hemorrhoids without mention of complication Malignant neoplasm of female breast ([facility]) 04/03/2009 Obstructive sleep apnea Occlusion and stenosis of carotid artery without mention of cerebral infarction 40% left Other and unspecified hyperlipidemia Personal history of other diseases of circulatory system 12/10/2005 Previous Surgical History PAST SURGICAL HISTORY Procedure Laterality Date COLONOSCOPY FLX DX W/COLLJ SPEC WHEN PFRMD 04/24/2006 Colonoscopy LIG/TRNSXJ FLP TUBE ABDL/VAG APPR UNI/BI Tubal ligation MAST RAD W/PECTORAL MUSCLES AXILLARY LYMPH NODES 04/21/09 left breast due to cancer. PAST SURGICAL HISTORY OF back surgery TONSILLECTOMY & ADENOIDECTOMY <AGE 13 Tonsil/adenoidectomy TOTAL ABDOMINAL HYSTERECT W/WO RMVL TUBE OVARY Hysterectomy, PRANAV Family History FAMILY HISTORY Problem Relation Age of Onset Diabetes Mother Heart Mother mi other (leg ampt) Mother Heart Father mi Hypertension Sister x 2 Patient Allergies ALLERGIES Allergen Reactions Quinapril Cough Zocor [Simvastatin] Intolerance mucsle pain Current Medications Current Outpatient Medications on File Prior to Visit Medication Sig carvedilol (COREG) 25 mg tablet Take 1 tablet by mouth twice daily. torsemide (DEMADEX) 20 mg tablet Take 2 tablets by mouth once daily. Take with 10 mg tablet in the am to equal 50 mg once daily. cloNIDine HCl (CATAPRES) 0.2 mg tablet Take 1 tablet by mouth twice daily. lovastatin (MEVACOR) 10 mg tablet Take 1 tablet by mouth three times a week. losartan (COZAAR) 100 mg tablet Take 1 tablet by mouth once daily. citalopram (CELEXA) 20 mg tablet Take 1 tablet by mouth once daily. meloxicam (MOBIC) 15 mg tablet Take 0.5 tablets by mouth once daily. Take with food. NIFEdipine ER (PROCARDIA XL) 60 mg 24 hr tablet Take 1 tablet by mouth twice daily. predniSONE (DELTASONE) 20 mg tablet Take 1 tablet by mouth once daily. As needed for gout flare up Lancets (GeaComTOUCH ULTRASOFT LANCETS) lancets Test blood sugar(s) 2 times daily. Dx: Type 2 DM - Uncontrolled E11.65 , Insulin: No blood sugar diagnostic (GeaComTOUCH VERIO TEST STRIPS) test strip Test blood sugar(s) 2 times daily. Dx: Type 2 DM - Uncontrolled E11.65 Insulin: No torsemide (DEMADEX) 10 mg tablet Take 1 tablets once daily with 40 mg to total 50 mg a day clonazePAM (KLONOPIN) 0.5 mg tablet Take 1 tablet by mouth twice daily as needed for Anxiety for up to 30 days. fluticasone (FLONASE) 50 mcg/actuation nasal spray Use 2 Sprays in each nostril once daily. Rinse mouth after use. metroNIDAZOLE 1 % gel Apply 1 application to affected area twice daily. albuterol HFA (PROAIR HFA) 90 mcg/actuation inhaler Inhale 2 Puffs as instructed every 6 hours as needed for Wheezing/Shortness of Breath. prednisoLONE acetate (PRED FORTE, ECONOPRED PLUS) 1 % ophthalmic suspension Use 3 Drops in both eyes three times daily as needed. FOLIC ACID/MULTIVIT-MIN/LUTEIN (CENTRUM SILVER ORAL) Take by mouth. aspirin, enteric coated (ASPIRIN, ENTERIC COATED) 81 mg EC tablet Take 81 mg by mouth once daily. COMPOUNDED PRESCRIPTION MASTECTOMY LEFT BREAST PROSTHESIS DX C50.919 ONE FORM LEISURE BREAST FORM ONE FORM MASTECTOMY BRAS 12 EACH WITH REFILLS FOR ONE YEAR cyanocobalamin (VITAMIN B-12) 500 mcg tab Take 1 tablet by mouth once daily. Magnesium 250 mg tab Take 1 tablet by mouth once daily. albuterol (PROVENTIL) 5 mg/mL nebu Inhale 0.5 mL as instructed every 4 hours as needed for up to 7 days. 1 DOSE NOW - BACK OFFICE. PLACE 0.5 ML PER DROPPER AND 2.5 ML OF NORMAL SALINE INTO RESERVOIR. COMPOUNDED PRESCRIPTION CPAP @ 9 cm of water with humidification. Mask (per patient preference) optional chin strap (if indicated) , filters, tubing, humidifier and lifetime supplies. Pressure change per titration report. Dx. JOSIE 327.23 Cholecalciferol, Vitamin D3, 1,000 unit ORAL Cap Take one(1) tablet daily. MULTIVITAMIN TAB Take one(1) tablet daily. CALCIUM 600 + D(3) 600 MG-200 UNIT TAB Take one(1) tablet two(2) times daily. No current facility-administered medications on file prior to visit. Social History Social History Tobacco Use Smoking status: Never Smokeless tobacco: Never Substance Use Topics Alcohol use: No Drug use: No REVIEW OF SYSTEMS: as above Reviewed relevant PMHx, PSHx, Social Hx, current medications and allergies. Review of Symptoms REVIEW OF SYSTEMS See HPI. EXAM: BP 126/68 Pulse 76 Temp 36.4 C (97.6 F) (Left Tympanic) Resp 16 Wt 68.2 kg (150 lb 6.4 oz) BMI 27.51 kg/m General Appearance: Well appearing, alert, in no acute distress, well-hydrated, well nourished.. Skin: Skin color, texture, turgor normal, no suspicious rashes or lesions. LLE ([place]) with healing abrasion, surrounded with erythema, warmth to touch, tenderness, and swelling. Head: Normocephalic, no masses, lesions, tenderness or abnormalities. Neck: Supple, no adenopathy; thyroid symmetric, normal size, no bruits. Back:no pain to palpation of vertebrae, good flexion and extension, good range of motion, no muscle tenderness, reflexes are 2+ and symmetric, motor and sensory appear to be normal, negative SLR test, no evidence of scoliosis Lungs: Lungs clear to auscultation. No wheezing, rhonchi, rales.. Heart: RRR without murmur, gallop, or rubs. No ectopy. Extremities: No deformities, edema, skin discoloration, clubbing or cyanosis. Good capillary refill. . Peripheral Pulses: Normal. Neurologic: Gait normal. Reflexes normal and symmetric. Sensation grossly intact.. Health Maintenance List HBA1C due on 01/28/2023 URINE ALBUMIN:CREATININE RATIO due on 07/31/2023 LDL CHOLESTEROL due on 07/31/2023 DIABETIC FOOT EXAM due on 08/07/2023 DILATED RETINAL EXAM due on 12/31/2023 DTAP,TDAP,TD(2 - Td or Tdap) due on 05/15/2027 BONE DENSITY Completed INFLUENZA Completed SHINGRIX VACCINE Completed COVID-19 VACCINE Completed PNEUMOCOCCAL: 65+ Completed ADVANCE DIRECTIVE DISCUSSION Discontinued ASSESSMENT/PLAN: 1. Recurrent UTI (urinary tract infection) - ICD9: 599.0, ICD10: N39.0 (primary diagnosis) Acute. Checking for cure from recent antibiotic regimen d/t recurrence. - UA completely negative in office. No need for urine culture to be sent. - Patient education for prevention given - UA DIP, URINE (POC) - URINE CULTURE 2. Cellulitis of skin - ICD9: 682.9, ICD10: L03.90 - Begin treatment with Trimethoprim-sulfamethozazole (Bactrim) 2 DS PO BID - No lymphangetic streaking, this was defined for patient to watch for and to seek medical care immediately if appears - Area of cellulitis defined with pen, seek further attention if this area continues to enlarge - Follow up for recheck in three days - SULFAMETHOXAZOLE 800 MG-TRIMETHOPRIM 160 MG TABLET 3. SOB (shortness of breath) - ICD9: 786.05, ICD10: R06.02 ECHO and pharm stress test d/t ongoing symptoms and family history. Follow-up with results at appointment scheduled in 1 month. - ECHO - PERFLUTREN LIPID MICROSPHERES 1.1 MG/ML INJECTION IN NS 10 ML - SODIUM CHLORIDE 0.9 % (FLUSH) INJECTION SYRINGE - CARDIAC DRUG STRESS TEST 4. ELIZABETH (dyspnea on exertion) - ICD9: 786.09, ICD10: R06.09 See above. - ECHO - PERFLUTREN LIPID MICROSPHERES 1.1 MG/ML INJECTION IN NS 10 ML - SODIUM CHLORIDE 0.9 % (FLUSH) INJECTION SYRINGE - CARDIAC DRUG STRESS TEST 5. Acute cough - ICD9: 786.2, ICD10: R05.1 Lingering intermittent tickle in throat from recent sinus infection/cold a few weeks ago. Mild non-productive cough. No other associated URI symptoms. Lung sounds WNL. Take tessalone perles as needed. - BENZONATATE 100 MG CAPSULE RTO in 3 days for recheck of cellulitis and in 1 month as scheduled, sooner if needed. Prescription instructions reviewed with patient as applicable. Potential red flag symptoms discussed with the patient. Reviewed appropriate action plan to take if red flag symptoms occur. Patient agreeable to treatment plan. Maciel Murray APRN.[facility]GI [address] [place] [address] documented in this encounter [facility] 08-07-2022 History of Present illness Narrative Patient presents with: 6 Month Exam HPI: Martha Hung is a 87 year old female who presents to the office today for review of health conditions. Concerns today: Arthritis, multiple different areas and joints, currently left hand 2nd finger joint is flared up, had been doing a lot of knitting and crocheting recently, no known injuries. Use of meloxicam intermittently with benefit. BLOOD PRESSURE has been stable and controlled Mood, anxiety, stable, taking Celexa as prescribed, tolerating rx well without SE. Ms. Hung has past history of diabetes. Since our last visit she denies excessive thirst or increased frequency of urination, chest pain or dyspnea , new or unusual visual symptoms, and low sugar/hypoglycemic reactions. Depression- no. Follows a diabetic diet some of the time. She is compliant with medication(s) and is tolerating med(s) without any side effects. She reports checking her glucose on a once a day schedule with sugars in the <150 range. Patient's last HgA1C was Hemoglobin A1C (%) Date Value 07/31/2022 6.4 01/29/2022 6.4 08/28/2021 6.5 05/10/2021 6.5 ) Last Ophthalmology exam was within the past 12 months Ms. Hung reports history of hyperlipidemia. Current therapy includes lovastatin (Mevacor) 10 mg. Denies side effects of muscle weakness or achiness. Her most recent lipid panels are reviewed. Cholesterol, Total (mg/dL) Date Value 07/31/2022 195 08/28/2021 219 HDL Cholesterol (mg/dL) Date Value 07/31/2022 35 08/28/2021 35 LDL Cholesterol (mg/dL) Date Value 07/31/2022 83 08/28/2021 Unable to calculate due to increased Triglycerides. See LDL-Chol, Direct. Triglyceride (mg/dL) Date Value 07/31/2022 385 08/28/2021 423 Ms. Hung indicates a history of hypertension and states that she is feeling well and denies any symptoms referable to elevated blood pressure. Specifically denies headache, chest pain, palpitations, dyspnea, and peripheral edema. Patient denies any side effects of her medication(s) and is compliant with their regimen. Last 3 Encounter BP Readings: Date: BP: 08/07/2022 138/70 04/15/2022 110/62 02/04/2022 110/60 She watches her diet for sodium, low fat and low cholesterol some of the time. She does check BP's away from this office with average BP's in the 110-130/70-80s range. Martha gets minimal exercise. PAST MEDICAL HISTORY Diagnosis Date Acute, but ill-defined, cerebrovascular disease 1990 Cancer (HCC) Depression DM (diabetes mellitus) (HCC) 07/2016 DM (diabetes mellitus) (HCC) DTFB///BENIGN FANTA SKIN LEG 03/30/2008 Essential hypertension, benign Hemorrhage of gastrointestinal tract, unspecified Internal hemorrhoids without mention of complication Malignant neoplasm of female breast (HCC) 04/03/2009 Obstructive sleep apnea Occlusion and stenosis of carotid artery without mention of 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 PAST SURGICAL HISTORY OF back surgery TONSILLECTOMY & ADENOIDECTOMY <AGE 13 Tonsil/adenoidectomy TOTAL ABDOMINAL HYSTERECT W/WO RMVL TUBE OVARY Hysterectomy, PRANAV Social History Tobacco Use Smoking status: Never Smokeless tobacco: Never Substance Use Topics Alcohol use: No Drug use: No FAMILY HISTORY Problem Relation Age of Onset Diabetes Mother Heart Mother mi other (leg ampt) Mother Heart Father mi Hypertension Sister x 2 Allergies: ALLERGIES Allergen Reactions Quinapril Cough Zocor [Simvastatin] Intolerance mucsle pain Current Meds: NIFEdipine ER (PROCARDIA XL) 60 mg 24 hr tablet Take 1 tablet by mouth twice daily. meloxicam (MOBIC) 15 mg tablet Take 0.5 tablets by mouth once daily. Take with food. carvedilol (COREG) 25 mg tablet Take 1 tablet by mouth twice daily. torsemide (DEMADEX) 20 mg tablet Take 2 tablets by mouth once daily. Take with 10 mg tablet in the am to equal 50 mg once daily. cloNIDine HCl (CATAPRES) 0.2 mg tablet Take 1 tablet by mouth twice daily. lovastatin (MEVACOR) 10 mg tablet Take 1 tablet by mouth three times a week. losartan (COZAAR) 100 mg tablet Take 1 tablet by mouth once daily. citalopram (CELEXA) 20 mg tablet Take 1 tablet by mouth once daily. torsemide (DEMADEX) 10 mg tablet Take 1 tablets once daily with 40 mg to total 50 mg a day predniSONE (DELTASONE) 20 mg tablet Take 1 tablet by mouth once daily. As needed for gout flare up Lancets (ONETOUCH ULTRASOFT LANCETS) lancets Test blood sugar(s) 2 times daily. Dx: Type 2 DM - Uncontrolled E11.65 , Insulin: No blood sugar diagnostic (ONETOUCH VERIO TEST STRIPS) test strip Test blood sugar(s) 2 times daily. Dx: Type 2 DM - Uncontrolled E11.65 Insulin: No clonazePAM (KLONOPIN) 0.5 mg tablet Take 1 tablet by mouth twice daily as needed for Anxiety for up to 30 days. fluticasone (FLONASE) 50 mcg/actuation nasal spray Use 2 Sprays in each nostril once daily. Rinse mouth after use. metroNIDAZOLE 1 % gel Apply 1 application to affected area twice daily. albuterol HFA (PROAIR HFA) 90 mcg/actuation inhaler Inhale 2 Puffs as instructed every 6 hours as needed for Wheezing/Shortness of Breath. prednisoLONE acetate (PRED FORTE, ECONOPRED PLUS) 1 % ophthalmic suspension Use 3 Drops in both eyes three times daily as needed. FOLIC ACID/MULTIVIT-MIN/LUTEIN (CENTRUM SILVER ORAL) Take by mouth. aspirin, enteric coated (ASPIRIN, ENTERIC COATED) 81 mg EC tablet Take 81 mg by mouth once daily. COMPOUNDED PRESCRIPTION MASTECTOMY LEFT BREAST PROSTHESIS DX C50.919 ONE FORM LEISURE BREAST FORM ONE FORM MASTECTOMY BRAS 12 EACH WITH REFILLS FOR ONE YEAR cyanocobalamin (VITAMIN B-12) 500 mcg tab Take 1 tablet by mouth once daily. Magnesium 250 mg tab Take 1 tablet by mouth once daily. albuterol (PROVENTIL) 5 mg/mL nebu Inhale 0.5 mL as instructed every 4 hours as needed for up to 7 days. 1 DOSE NOW - BACK OFFICE. PLACE 0.5 ML PER DROPPER AND 2.5 ML OF NORMAL SALINE INTO RESERVOIR. COMPOUNDED PRESCRIPTION CPAP @ 9 cm of water with humidification. Mask (per patient preference) optional chin strap (if indicated) , filters, tubing, humidifier and lifetime supplies. Pressure change per titration report. Dx. JOSIE 327.23 Cholecalciferol, Vitamin D3, 1,000 unit ORAL Cap Take one(1) tablet daily. MULTIVITAMIN TAB Take one(1) tablet daily. CALCIUM 600 + D(3) 600 MG-200 UNIT TAB Take one(1) tablet two(2) times daily. Review of Systems: The remainder of the review of systems is negative. PE: 08/07/22 0904 BP: 138/70 Pulse: 68 Resp: 16 Temp: 36 C (96.8 F) TempSrc: Left Tympanic Weight: 68 kg (150 lb) Gen: A&O, NAD, non-toxic appearing, Pleasant, cooperative HEENT: NT/AC, PERRLA, EOMs intact b/l, nares clear and patent b/l, pharynx without erythema, exudate or lesions. Uvula midline. EACs without erythema or debris. TMs pearly goff with intact landmarks b/l. Hard of hearing, wearing glasses Neck: supple, No cervical LAD, no thyromegaly, no carotid bruits CV: RRR, normal S1 and S2, no murmurs, no gallops, no rubs, Pulses 2+ and symmetric in UE and LE b/l Lungs: normal respiratory effort, CTA b/l, no wheezing or rhonchi or rales Abd: soft, NT, ND, +BS, no hepatosplenomegaly MS: arthritis changes of knees, hips, spine and hands and feet Neuro: CN II-XII intact b/l Skin: warm, dry, intact, No rashes or lesions on exposed skin. Foot exam: Monofilament wnl on right and left feet. Hammer toes foot right 2-3rd, bunion b/l great toes, callus medial great toes Gait is slowed but stable ASSESSMENT/PLAN: 1. Controlled type 2 diabetes mellitus without complication, without long-term current use of insulin (HCC) - ICD9: 250.00, ICD10: E11.9 (primary diagnosis) Controlled. - Continue current medications Needs to consider getting Diabetic shoes - Blood glucose monitoring on a once a day schedule - Encouraged regular aerobic exercise and weight loss - BP goal of <130/80 - LDL goal of <100 2. Essential hypertension, benign - ICD9: 401.1, ICD10: I10 - good control - Continue current medication(s) - Encouraged dietary sodium restriction/DASH diet - Recommended regular aerobic exercise. - Recommend home blood pressure monitoring, to bring results in on next visit - Discussed need and benefit for weight loss. - Goal of BP <130/80 - CARVEDILOL 25 MG TABLET - TORSEMIDE 20 MG TABLET - CLONIDINE HCL 0.2 MG TABLET - LOSARTAN 100 MG TABLET - NIFEDIPINE ER 60 MG TABLET,EXTENDED RELEASE 24 HR 3. Pure hypercholesterolemia - ICD9: 272.0, ICD10: E78.00 - rx refilled, stable - LOVASTATIN 10 MG TABLET 4. Dysthymia - ICD9: 300.4, ICD10: F34.1 - rx refilled, stable - CITALOPRAM 20 MG TABLET 5. Palpitations - ICD9: 785.1, ICD10: R00.2 - rx refilled, stable, recheck ECHO summer 2021 - NIFEDIPINE ER 60 MG TABLET,EXTENDED RELEASE 24 HR 6. 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 Arthritis, multiple joint involvement - ICD9: 716.99, ICD10: M12.9 Continue prn Meloxicam, has normal renal function, diabetes and HTN is well controlled. - PARKING FOR HANDICAPPED 8. A[place] (generalized anxiety disorder) - ICD9: 300.02, ICD10: F41.1 Stable, continue Celexa 9. Vitamin D deficiency - ICD9: 268.9, ICD10: E55.9 Continue supplement 10. Idiopathic chronic gout of m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 - ICD9: 274.02, ICD10: M1A.09X0 Stable, has intermittent flare ups, also controls with diet trigger avoidance Nico Vargas DO To ER if develops chest pain, shortness of breath, or severe worsening of symptoms. Discussed risks, benefits, alternatives, and potential side effects of medications. Patient expressed understanding and agreed with the plan. Nico Vargas DO [address] [place] [address] documented in this encounter [facility] 06-04-2022 Miscellaneous Notes The following approved medication requests have been transmitted electronically. Requested Prescriptions Signed Prescriptions Disp Refills nystatin (MYCOSTATIN) cream 30 g 1 Sig: Apply to affected area twice daily. Under breasts on area of rash Authorizing Provider: NICO VARGAS DO Last office visit: 04/15/22 F/u scheduled: 08/07/22 Lauren Barragan Ma Martha Hung is calling Nico Vargas DO today requesting a refill of medication under her chart. Please send to [facility]/ [place] nystatin (MYCOSTATIN) cream 30 g 1 08/01/2020 08/31/2020 Sig: Apply to affected area twice daily. Under breasts on area of rash Sent to pharmacy as: nystatin (MYCOSTATIN) cream Class: Normal documented in this encounter [facility] 04-15-2022 Miscellaneous Notes Patient reports the prednisone should have been sent to [facility] [place], not [facility]. Pended. documented in this encounter [facility] 04-15-2022 History of Present illness Narrative Chief Complaint Patient presents with: Pain: rt foot pain HPI Martha Hung is a 86 year old female who presents here today for Above Complaints.. Martha is an established patient of Dr. Cooper DO. Martha is a new patient to me today. Concerns today... Foot pain: R foot pain since Ovidio morning. Swelling to L side of R foot. Hx of gout. Last gout flare was 1 year ago. Feels similar per pt. Last episode of gout was in R big toe -- this discomfort is more in heel, ankle, and down the entire side of foot. Pt denies any fall or known injury recently. Warm to area with swelling. No discoloration or redness. Pain/discomfort is worse with weight-bearing. Has rx for prednisone prn for gout flare -- pt ran out of refills. Has been taking meloxicam x 3 days with some relief. [place] that it was improving but this morning is worse again. Ice packs to area does improve symptoms. No other concerns or complaints. Past medical history, appointments, medications, allergies reviewed. Previous Medical History PAST MEDICAL HISTORY Diagnosis Date Acute, but ill-defined, cerebrovascular disease 1990 Cancer ([facility]) Depression DM (diabetes mellitus) ([facility]) 07/2016 DM (diabetes mellitus) ([facility]) DTFB///BENIGN FANTA SKIN LEG 03/30/2008 Essential hypertension, benign Hemorrhage of gastrointestinal tract, unspecified Internal hemorrhoids without mention of complication Malignant neoplasm of female breast ([facility]) 04/03/2009 Obstructive sleep apnea Occlusion and stenosis of carotid artery without mention of cerebral infarction 40% left Other and unspecified hyperlipidemia Personal history of other diseases of circulatory system 12/10/2005 Previous Surgical History PAST SURGICAL HISTORY Procedure Laterality Date COLONOSCOPY FLX DX W/COLLJ SPEC WHEN PFRMD 04/24/2006 Colonoscopy LIG/TRNSXJ FLP TUBE ABDL/VAG APPR UNI/BI Tubal ligation MAST RAD W/PECTORAL MUSCLES AXILLARY LYMPH NODES 04/21/09 left breast due to cancer. PAST SURGICAL HISTORY OF back surgery TONSILLECTOMY & ADENOIDECTOMY <AGE 13 Tonsil/adenoidectomy TOTAL ABDOMINAL HYSTERECT W/WO RMVL TUBE OVARY Hysterectomy, PRANAV Family History FAMILY HISTORY Problem Relation Age of Onset Diabetes Mother Heart Mother mi other (leg ampt) Mother Heart Father mi Hypertension Sister x 2 Patient Allergies ALLERGIES Allergen Reactions Quinapril Cough Zocor [Simvastatin] Intolerance mucsle pain Current Medications Current Outpatient Medications on File Prior to Visit Medication Sig Lancets (ONETOUCH ULTRASOFT LANCETS) lancets Test blood sugar(s) 2 times daily. Dx: Type 2 DM - Uncontrolled E11.65 , Insulin: No blood sugar diagnostic (ONETOUCH VERIO TEST STRIPS) test strip Test blood sugar(s) 2 times daily. Dx: Type 2 DM - Uncontrolled E11.65 Insulin: No NIFEdipine ER (PROCARDIA XL) 60 mg 24 hr tablet Take 1 tablet by mouth twice daily. meloxicam (MOBIC) 15 mg tablet Take 0.5 tablets by mouth once daily. Take with food. carvedilol (COREG) 25 mg tablet Take 1 tablet by mouth twice daily. torsemide (DEMADEX) 20 mg tablet Take 2 tablets by mouth once daily. Take with 10 mg tablet in the am to equal 50 mg once daily. cloNIDine HCl (CATAPRES) 0.2 mg tablet Take 1 tablet by mouth twice daily. lovastatin (MEVACOR) 10 mg tablet Take 1 tablet by mouth three times a week. losartan (COZAAR) 100 mg tablet Take 1 tablet by mouth once daily. citalopram (CELEXA) 20 mg tablet Take 1 tablet by mouth once daily. predniSONE (DELTASONE) 20 mg tablet Take 1 tablet by mouth once daily. As needed for gout flare up torsemide (DEMADEX) 10 mg tablet Take 1 tablets once daily with 40 mg to total 50 mg a day clonazePAM (KLONOPIN) 0.5 mg tablet Take 1 tablet by mouth twice daily as needed for Anxiety for up to 30 days. fluticasone (FLONASE) 50 mcg/actuation nasal spray Use 2 Sprays in each nostril once daily. Rinse mouth after use. metroNIDAZOLE 1 % gel Apply 1 application to affected area twice daily. albuterol HFA (PROAIR HFA) 90 mcg/actuation inhaler Inhale 2 Puffs as instructed every 6 hours as needed for Wheezing/Shortness of Breath. prednisoLONE acetate (PRED FORTE, ECONOPRED PLUS) 1 % ophthalmic suspension Use 3 Drops in both eyes three times daily as needed. FOLIC ACID/MULTIVIT-MIN/LUTEIN (CENTRUM SILVER ORAL) Take by mouth. aspirin, enteric coated (ASPIRIN, ENTERIC COATED) 81 mg EC tablet Take 81 mg by mouth once daily. COMPOUNDED PRESCRIPTION MASTECTOMY LEFT BREAST PROSTHESIS DX C50.919 ONE FORM LEISURE BREAST FORM ONE FORM MASTECTOMY BRAS 12 EACH WITH REFILLS FOR ONE YEAR cyanocobalamin (VITAMIN B-12) 500 mcg tab Take 1 tablet by mouth once daily. Magnesium 250 mg tab Take 1 tablet by mouth once daily. albuterol (PROVENTIL) 5 mg/mL nebu Inhale 0.5 mL as instructed every 4 hours as needed for up to 7 days. 1 DOSE NOW - BACK OFFICE. PLACE 0.5 ML PER DROPPER AND 2.5 ML OF NORMAL SALINE INTO RESERVOIR. COMPOUNDED PRESCRIPTION CPAP @ 9 cm of water with humidification. Mask (per patient preference) optional chin strap (if indicated) , filters, tubing, humidifier and lifetime supplies. Pressure change per titration report. Dx. JOSIE 327.23 Cholecalciferol, Vitamin D3, 1,000 unit ORAL Cap Take one(1) tablet daily. MULTIVITAMIN TAB Take one(1) tablet daily. CALCIUM 600 + D(3) 600 MG-200 UNIT TAB Take one(1) tablet two(2) times daily. Current Facility-Administered Medications on File Prior to Visit Medication perflutren lipid microspheres 1.3 mL in NaCl (PF) 0.9% 10 mL injection (DEFINITY) sodium chloride 0.9 % (flush) 10 mL (BD POSIFLUSH) Social History Social History Tobacco Use Smoking status: Never Smoker Smokeless tobacco: Never Used Substance Use Topics Alcohol use: No Drug use: No REVIEW OF SYSTEMS: as above Reviewed relevant PMHx, PSHx, Social Hx, current medications and allergies. Review of Symptoms See HPI. All other systems are negative. EXAM: BP 110/62 (BP Site: Right Arm, BP Position: Sitting, BP Cuff Size: Regular Adult) Pulse 72 Resp 14 Wt 67 kg (147 lb 9.6 oz) BMI 27.00 kg/m General Appearance: Well appearing, alert, in no acute distress, well-hydrated, well nourished.. Skin: Skin color, texture, turgor normal, no suspicious rashes or lesions. Head: Normocephalic, no masses, lesions, tenderness or abnormalities. Lungs: Lungs clear to auscultation. No wheezing, rhonchi, rales.. Heart: RRR without murmur, gallop, or rubs. No ectopy. Extremities: Normal except for Tenderness, swelling, and warmth to right foot from heel down L side of foot. No discoloration. Musculoskeletal: No joint swelling, deformity, or tenderness. Peripheral Pulses: Normal. Neurologic: Gait normal. Reflexes normal and symmetric. Sensation grossly intact.. Health Maintenance List ADVANCE DIRECTIVE DISCUSSION Never done URINE ALBUMIN:CREATININE RATIO due on 05/10/2022 DIABETIC FOOT EXAM due on 05/15/2022 INFLUENZA(1) due on 05/23/2022 DILATED RETINAL EXAM due on 06/14/2022 COVID-19 VACCINE(3 - Booster for Moderna series) due on 06/20/2022 HBA1C due on 08/01/2022 LDL CHOLESTEROL due on 01/29/2023 DTAP,TDAP,TD(2 - Td or Tdap) due on 05/15/2027 BONE DENSITY Completed SHINGRIX VACCINE Completed PNEUMOCOCCAL: 65+ Completed ASSESSMENT/PLAN: 1. Foot pain, right - ICD9: 729.5, ICD10: M79.671 Likely gout flare. Will rule out injury with x-ray due to not classic gout location or presentation. - prednisone 20 mg x 7 days. - Discussed hydration and increase in fluids. - Continue to elevate and apply ice to area. - PREDNISONE 20 MG TABLET - XR FOOT GENERAL 3V AP/LAT/OBL RIGHT - URIC ACID BLOOD RTO if symptoms worsen or do not improve in 3-5 days. Prescription instructions reviewed with patient as applicable. Potential red flag symptoms discussed with the patient. Reviewed appropriate action plan to take if red flag symptoms occur. Patient agreeable to treatment plan. Maciel Murray APRN.[employer] [address] [place] [address] documented in this encounter [facility] 03-21-2022 Miscellaneous Notes Pt calling for refill PETER: 02/04/22 NOV: 08/07/22 Last Refill: 04/15/17 #100 11 refills. Pt states she tests once weekly. Bridget Mendez LPN documented in this encounter [facility] 02-05-2022 Miscellaneous Notes Recent labs faxed to [facility]. Cynthia Boston MA Please send copy of recent labs to Dr. Valentin office Nico Vargas DO documented in this encounter [facility] 02-05-2022 History of Present illness Narrative Patient presents with: Follow Up: 6 months HPI: Martha Hung is a 86 year old female who presents to the office today for review of health conditions. Concerns today: Mood, overall doing well, taking Celexa as prescribed and prn clonazepam when feels overwhelming anxiety such as when family visits from out of town or can't sleep due to anxiety symptoms- this is rare Foot discomfort, with prolonged standing/walking right mid foot, no redness or known injury, comes and goes, not daily. Hasn't been using anything for it other than rest and elevation. Taking medications as prescribed. Recently has seen Cardiology [employer] Frantz Lincoln, no new testing or medication adjustments. Ms. Hung has past history of diabetes. Since our last visit she denies excessive thirst or increased frequency of urination, chest pain or dyspnea , new or unusual visual symptoms and low sugar/hypoglycemic reactions. Follows a diabetic diet most of the time. She is compliant with medication(s) and is tolerating med(s) without any side effects. She reports checking her glucose on a once a day schedule with sugars in the <150 range. Patient's last HgA1C was Hemoglobin A1C (%) Date Value 01/29/2022 6.4 08/28/2021 6.5 05/10/2021 6.5 ) Last Ophthalmology exam was within the past 12 months Ms. Hung reports history of hyperlipidemia. Current therapy includes lovastatin (Mevacor) 10 mg. Denies side effects of muscle weakness or achiness. Her most recent lipid panels are reviewed. Cholesterol, Total (mg/dL) Date Value 01/29/2022 193 08/28/2021 219 HDL Cholesterol (mg/dL) Date Value 01/29/2022 36 08/28/2021 35 LDL Cholesterol (mg/dL) Date Value 01/29/2022 97 08/28/2021 Unable to calculate due to increased Triglycerides. See LDL-Chol, Direct. Triglyceride (mg/dL) Date Value 01/29/2022 298 08/28/2021 423 Ms. Hung indicates a history of hypertension and states that she is feeling well and denies any symptoms referable to elevated blood pressure. Specifically denies headache, chest pain, palpitations, dyspnea and peripheral edema. Patient denies any side effects of her medication(s) and is compliant with their regimen. Last 3 Encounter BP Readings: Date: BP: 02/04/2022 110/60 08/28/2021 120/60 05/15/2021 120/80 She watches her diet for sodium, low fat and low cholesterol some of the time. She does not check BP's generally. Martha gets minimal exercise. PAST MEDICAL HISTORY Diagnosis Date Acute, but ill-defined, cerebrovascular disease 1990 Cancer (HCC) Depression DM (diabetes mellitus) ([facility]) 07/2016 DM (diabetes mellitus) ([facility]) DTFB///BENIGN FANTA SKIN LEG 03/30/2008 Essential hypertension, benign Hemorrhage of gastrointestinal tract, unspecified Internal hemorrhoids without mention of complication Malignant neoplasm of female breast ([facility]) 04/03/2009 Obstructive sleep apnea Occlusion and stenosis of carotid artery without mention of 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 PAST SURGICAL HISTORY OF back surgery TONSILLECTOMY & ADENOIDECTOMY <AGE 13 Tonsil/adenoidectomy TOTAL ABDOMINAL HYSTERECT W/WO RMVL TUBE OVARY Hysterectomy, PRANAV Social History Tobacco Use Smoking status: Never Smoker Smokeless tobacco: Never Used Substance Use Topics Alcohol use: No Drug use: No FAMILY HISTORY Problem Relation Age of Onset Diabetes Mother Heart Mother mi other (leg ampt) Mother Heart Father mi Hypertension Sister x 2 Allergies: ALLERGIES Allergen Reactions Quinapril Cough Zocor [Simvastatin] Intolerance mucsle pain Current Meds: NIFEdipine ER (PROCARDIA XL) 60 mg 24 hr tablet Take 1 tablet by mouth twice daily. meloxicam (MOBIC) 15 mg tablet Take 0.5 tablets by mouth once daily. Take with food. carvedilol (COREG) 25 mg tablet Take 1 tablet by mouth twice daily. torsemide (DEMADEX) 20 mg tablet Take 2 tablets by mouth once daily. Take with 10 mg tablet in the am to equal 50 mg once daily. cloNIDine HCl (CATAPRES) 0.2 mg tablet Take 1 tablet by mouth twice daily. lovastatin (MEVACOR) 10 mg tablet Take 1 tablet by mouth three times a week. losartan (COZAAR) 100 mg tablet Take 1 tablet by mouth once daily. citalopram (CELEXA) 20 mg tablet Take 1 tablet by mouth once daily. blood sugar diagnostic (GeaComTOUCH VERIO TEST STRIPS) test strip Test blood sugar(s) 2 times daily. Dx: Type 2 DM - Uncontrolled E11.65 Insulin: No predniSONE (DELTASONE) 20 mg tablet Take 1 tablet by mouth once daily. As needed for gout flare up torsemide (DEMADEX) 10 mg tablet Take 1 tablets once daily with 40 mg to total 50 mg a day clonazePAM (KLONOPIN) 0.5 mg tablet Take 1 tablet by mouth twice daily as needed for Anxiety for up to 30 days. fluticasone (FLONASE) 50 mcg/actuation nasal spray Use 2 Sprays in each nostril once daily. Rinse mouth after use. metroNIDAZOLE 1 % gel Apply 1 application to affected area twice daily. albuterol HFA (PROAIR HFA) 90 mcg/actuation inhaler Inhale 2 Puffs as instructed every 6 hours as needed for Wheezing/Shortness of Breath. Lancets (GeaComTOUCH ULTRASOFT LANCETS) lancets Test blood sugar(s) 2 times daily. Dx: Type 2 DM - Uncontrolled E11.65 , Insulin: No prednisoLONE acetate (PRED FORTE, ECONOPRED PLUS) 1 % ophthalmic suspension Use 3 Drops in both eyes three times daily as needed. FOLIC ACID/MULTIVIT-MIN/LUTEIN (CENTRUM SILVER ORAL) Take by mouth. aspirin, enteric coated (ASPIRIN, ENTERIC COATED) 81 mg EC tablet Take 81 mg by mouth once daily. COMPOUNDED PRESCRIPTION MASTECTOMY LEFT BREAST PROSTHESIS DX C50.919 ONE FORM LEISURE BREAST FORM ONE FORM MASTECTOMY BRAS 12 EACH WITH REFILLS FOR ONE YEAR cyanocobalamin (VITAMIN B-12) 500 mcg tab Take 1 tablet by mouth once daily. Magnesium 250 mg tab Take 1 tablet by mouth once daily. albuterol (PROVENTIL) 5 mg/mL nebu Inhale 0.5 mL as instructed every 4 hours as needed for up to 7 days. 1 DOSE NOW - BACK OFFICE. PLACE 0.5 ML PER DROPPER AND 2.5 ML OF NORMAL SALINE INTO RESERVOIR. COMPOUNDED PRESCRIPTION CPAP @ 9 cm of water with humidification. Mask (per patient preference) optional chin strap (if indicated) , filters, tubing, humidifier and lifetime supplies. Pressure change per titration report.Dx. JOSIE 327.23 Cholecalciferol, Vitamin D3, 1,000 unit ORAL Cap Take one(1) tablet daily. MULTIVITAMIN TAB Take one(1) tablet daily. CALCIUM 600 + D(3) 600 MG-200 UNIT TAB Take one(1) tablet two(2) times daily. Review of Systems: The remainder of the review of systems is negative. PE: 02/04/22 0946 BP: 110/60 Pulse: 64 Resp: 16 Temp: 36.1 C (97 F) TempSrc: Right Tympanic Weight: 67.6 kg (149 lb) Gen: A&O, NAD, non-toxic appearing, Pleasant, cooperative HEENT: NT/AC, PERRLA, wearing glasses, EOMs intact b/l, nares clear and patent b/l, pharynx without erythema, exudate or lesions. Uvula midline. MMM, EACs without erythema or debris. TMs pearly goff with intact landmarks b/l. Neck: supple, No cervical LAD, no thyromegaly, no carotid bruits CV: RRR, normal S1 and S2, no murmurs, no gallops, no rubs, Pulses 2+ and symmetric in UE and LE b/l Lungs: normal respiratory effort, CTA b/l, no wheezing or rhonchi or rales Abd: soft, slightly overweight, NT, ND, +BS, no hepatosplenomegaly MS: FROM all 4 extremities Neuro: CN II-XII intact b/l, strength 5/5 b/l UE and LE, DTRs 2/4 UE and LE, sensation intact. Skin: warm, dry, intact, No rashes or lesions on exposed skin. Foot exam: Monofilament wnl on right and left feet. Arthritis changes b/l feet No edema, normal pulses ASSESSMENT/PLAN: 1. Controlled type 2 diabetes mellitus without complication, without long-term current use of insulin (HCC) - ICD9: 250.00, ICD10: E11.9 (primary diagnosis) Controlled. - Continue current medications - Blood glucose monitoring on a once a day schedule - HGB A1C - COMP METABOLIC PANEL - CBC - ALBUMIN/CREAT RATIO RND UR - VITAMIN B12 BLOOD 2. Palpitations - ICD9: 785.1, ICD10: R00.2 - stable, rx refilled. - NIFEDIPINE ER 60 MG TABLET,EXTENDED RELEASE 24 HR 3. Essential hypertension, benign - ICD9: 401.1, ICD10: I10 - good control - Continue current medication(s) - Encouraged dietary sodium restriction/DASH diet - Recommended regular aerobic exercise. - Recommend home blood pressure monitoring, to bring results in on next visit - Goal of BP <130/80 - NIFEDIPINE ER 60 MG TABLET,EXTENDED RELEASE 24 HR 4. 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 Dysthymia - ICD9: 300.4, ICD10: F34.1 - stable, continue Celexa 6. Pure hypercholesterolemia - ICD9: 272.0, ICD10: E78.00 - stable, continue same medications - LIPID PANEL BASIC 7. [place] (generalized anxiety disorder) - ICD9: 300.02, ICD10: F41.1 - stable, continue celexa and prn klonopin for panic only 8. Arthritis, multiple joint involvement - ICD9: 716.99, ICD10: M12.9 - overall stable, no new changes 9. Vitamin D deficiency - ICD9: 268.9, ICD10: E55.9 - VITAMIN D 25 HYDROXY Nico Vargas DO To ER if develops chest pain, shortness of breath, or severe worsening of symptoms. Discussed risks, benefits, alternatives, and potential side effects of medications. Patient expressed understanding and agreed with the plan. Nico Vargas DO [address] [place] [address] documented in this encounter [facility] 02-04-2022 Instructions Nico Vargas DO - 02/04/2022 10:06 AM EDT When you wake up flushed in the morning, check your blood pressure and heart rate since one of these are probably affecting you. Consider using the Foot bath with warm water and epsom salt soaks for 10-20 minutes for your foot arthritis. Massage therapy and use of a moist heating pad ( rice pack heating pad would work- can use a dry cotton sock and fill with dry white rice and use in microwave for 2 minutes at a time and can reuse over and over again, use for 15-20 minutes at a time) Don't forget to try VOLTAREN 1% cream/gel on your foot 2-3 times a day as needed for discomfort documented in this encounter [facility] 01-21-2022 Miscellaneous Notes Detailed VM left with patient. Nella Adams Ma Orders placed for lab work. Please let patient know. Please also remind patient to be fasting. Maciel Murray APRN.[employer] Patient calls and states that she has appointment with provider on 02/04/2022. Patient asking if there are any labs that provider wants done prior to that appointment? Please give patient a call back if provider wants labs done prior to appointment. 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 08/02/2020 02/07/2021 Other screening mammogram 05/13/20142013 Open wound(s) (multiple) of unspecified site(s), without mention of complication 06/14/2008 05/13/2014 Inflamed seborrheic keratosis 03/30/2008 Actinic keratosis 03/30/2008 05/13/2014 Other chronic dermatitis due to solar radiation 03/30/2008 05/13/2014 Other seborrheic keratosis 03/30/200805/13 DTFB///BENIGN FANTA SKIN LEG 03/30/200804/08 NEVUS/IDN//BENIGN FANTA SKIN TRUNK 03/30/2008 05/13/2014 ELEVATED SGOT 01/06/2008 02/07/2021 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/2005 04/08/2017 Depressive disorder, not elsewhere classified 02/07/2021 DM (diabetes mellitus) 0 Overview: 07/2016 documented as of this encounter (statuses as of 02/05/2022) [facility] History of Past illness Narrative* Problem Noted Date Resolved Date Idiopathic chronic gout of multiple sites withou t tophus 08/02/2020 02/07/2021 Other screening mammogram 05/13/20142013 Open wound(s) (multiple) of unspecified site(s), without mention of complication 06/14/2008 05/13/2014 Inflamed seborrheic keratosis 03/30/2008 Actinic keratosis 03/30/2008 05/13/2014 Other chronic dermatitis due to solar radiation 03/30/2008 05/13/2014 Other seborrheic keratosis 03/30/200805/13 DTFB///BENIGN FANTA SKIN LEG 03/30/200804/08 NEVUS/IDN//BENIGN FANTA SKIN TRUNK 03/30/2008 05/13/2014 ELEVATED SGOT 01/06/2008 02/07/2021 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/2005 04/08/2017 Depressive disorder, not elsewhere classified 02/07/2021 DM (diabetes mellitus) 0 Overview: 07/2016 documented as of this encounter (statuses as of 02/05/2022) [facility] History of Past illness Narrative* Problem Noted Date Resolved Date Idiopathic chronic gout of multiple sites withou t tophus 08/02/2020 02/07/2021 Other screening mammogram 05/13/20142013 Open wound(s) (multiple) of unspecified site(s), without mention of complication 06/14/2008 05/13/2014 Inflamed seborrheic keratosis 03/30/2008 Actinic keratosis 03/30/2008 05/13/2014 Other chronic dermatitis due to solar radiation 03/30/2008 05/13/2014 Other seborrheic keratosis 03/30/200805/13 DTFB///BENIGN FANTA SKIN LEG 03/30/200804/08 NEVUS/IDN//BENIGN FANTA SKIN TRUNK 03/30/2008 05/13/2014 ELEVATED SGOT 01/06/2008 02/07/2021 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/2005 04/08/2017 Depressive disorder, not elsewhere classified 02/07/2021 DM (diabetes mellitus) 0 Overview: 07/2016 documented as of this encounter (statuses as of 03/21/2022) [facility] History of Past illness Narrative* Problem Noted Date Resolved Date Idiopathic chronic gout of multiple sites withou t tophus 08/02/2020 02/07/2021 Other screening mammogram 05/13/20142013 Open wound(s) (multiple) of unspecified site(s), without mention of complication 06/14/2008 05/13/2014 Inflamed seborrheic keratosis 03/30/2008 Actinic keratosis 03/30/2008 05/13/2014 Other chronic dermatitis due to solar radiation 03/30/2008 05/13/2014 Other seborrheic keratosis 03/30/200805/13 DTFB///BENIGN FANTA SKIN LEG 03/30/200804/08 NEVUS/IDN//BENIGN FANTA SKIN TRUNK 03/30/2008 05/13/2014 ELEVATED SGOT 01/06/2008 02/07/2021 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/2005 04/08/2017 Depressive disorder, not elsewhere classified 02/07/2021 DM (diabetes mellitus) 0 Overview: 07/2016 documented as of this encounter (statuses as of 04/15/2022) [facility] History of Past illness Narrative* Problem Noted Date Resolved Date Idiopathic chronic gout of multiple sites withou t tophus 08/02/2020 02/07/2021 Other screening mammogram 05/13/20142013 Open wound(s) (multiple) of unspecified site(s), without mention of complication 06/14/2008 05/13/2014 Inflamed seborrheic keratosis 03/30/2008 Actinic keratosis 03/30/2008 05/13/2014 Other chronic dermatitis due to solar radiation 03/30/2008 05/13/2014 Other seborrheic keratosis 03/30/200805/13 DTFB///BENIGN FANTA SKIN LEG 03/30/200804/08 NEVUS/IDN//BENIGN FANTA SKIN TRUNK 03/30/2008 05/13/2014 ELEVATED SGOT 01/06/2008 02/07/2021 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/2005 04/08/2017 Depressive disorder, not elsewhere classified 02/07/2021 DM (diabetes mellitus) 0 Overview: 07/2016 documented as of this encounter (statuses as of 04/15/2022) [facility] History of Past illness Narrative* Problem Noted Date Resolved Date Idiopathic chronic gout of multiple sites withou t tops 08/02/2020 02/07/2021 Other screening mammogram 05/13/20142013 Open wound(s) (multiple) of unspecified site(s), without mention of complication 06/14/2008 05/13/2014 Inflamed seborrheic keratosis 03/30/2008 Actinic keratosis 03/30/2008 05/13/2014 Other chronic dermatitis due to solar radiation 03/30/2008 05/13/2014 Other seborrheic keratosis 03/30/200805/13 DTFB///BENIGN FANTA SKIN LEG 03/30/200804/08 NEVUS/IDN//BENIGN FANTA SKIN TRUNK 03/30/2008 05/13/2014 ELEVATED SGOT 01/06/2008 02/07/2021 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/2005 04/08/2017 Depressive disorder, not elsewhere classified 02/07/2021 DM (diabetes mellitus) 0 Overview: 07/2016 documented as of this encounter (statuses as of 06/05/2022) [facility] History of Past illness Narrative* Problem Noted Date Resolved Date Idiopathic chronic gout of multiple sites withou t tophus 08/02/2020 02/07/2021 Other screening mammogram 05/13/20142013 Open wound(s) (multiple) of unspecified site(s), without mention of complication 06/14/2008 05/13/2014 Inflamed seborrheic keratosis 03/30/2008 Actinic keratosis 03/30/2008 05/13/2014 Other chronic dermatitis due to solar radiation 03/30/2008 05/13/2014 Other seborrheic keratosis 03/30/200805/13 DTFB///BENIGN FANTA SKIN LEG 03/30/200804/08 NEVUS/IDN//BENIGN FANTA SKIN TRUNK 03/30/2008 05/13/2014 ELEVATED SGOT 01/06/2008 02/07/2021 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/2005 04/08/2017 Depressive disorder, not elsewhere classified 02/07/2021 DM (diabetes mellitus) 0 Overview: 07/2016 documented as of this encounter (statuses as of 08/07/2022) [facility] History of Past illness Narrative* Problem Noted Date Resolved Date Idiopathic chronic gout of multiple sites withou t tophus 08/02/2020 02/07/2021 Other screening mammogram 05/13/20142013 Open wound(s) (multiple) of unspecified site(s), without mention of complication 06/14/2008 05/13/2014 Inflamed seborrheic keratosis 03/30/2008 Actinic keratosis 03/30/2008 05/13/2014 Other chronic dermatitis due to solar radiation 03/30/2008 05/13/2014 Other seborrheic keratosis 03/30/200805/13 DTFB///BENIGN FANTA SKIN LEG 03/30/200804/08 NEVUS/IDN//BENIGN FANTA SKIN TRUNK 03/30/2008 05/13/2014 ELEVATED SGOT 01/06/2008 02/07/2021 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/2005 04/08/2017 Depressive disorder, not elsewhere classified 02/07/2021 DM (diabetes mellitus) 0 Overview: 07/2016 documented as of this encounter (statuses as of 01/02/2023) [facility] History of Past illness Narrative* Problem Noted Date Resolved Date Idiopathic chronic gout of multiple sites withou t tophus 08/02/2020 02/07/2021 Other screening mammogram 05/13/20142013 Open wound(s) (multiple) of unspecified site(s), without mention of complication 06/14/2008 05/13/2014 Inflamed seborrheic keratosis 03/30/2008 Actinic keratosis 03/30/2008 05/13/2014 Other chronic dermatitis due to solar radiation 03/30/2008 05/13/2014 Other seborrheic keratosis 03/30/200805/13 DTFB///BENIGN FANTA SKIN LEG 03/30/200804/08 NEVUS/IDN//BENIGN FANAT SKIN TRUNK 03/30/2008 05/13/2014 ELEVATED SGOT 01/06/2008 02/07/2021 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/2005 04/08/2017 Depressive disorder, not elsewhere classified 02/07/2021 DM (diabetes mellitus) 0 Overview: 07/2016 documented as of this encounter (statuses as of 01/06/2023) [facility] History of Past illness Narrative* Problem Noted Date Resolved Date Idiopathic chronic gout of multiple sites withou t tophus 08/02/2020 02/07/2021 Other screening mammogram 05/13/20142013 Open wound(s) (multiple) of unspecified site(s), without mention of complication 06/14/2008 05/13/2014 Inflamed seborrheic keratosis 03/30/2008 Actinic keratosis 03/30/2008 05/13/2014 Other chronic dermatitis due to solar radiation 03/30/2008 05/13/2014 Other seborrheic keratosis 03/30/200805/13 DTFB///BENIGN FANTA SKIN LEG 03/30/200804/08 NEVUS/IDN//BENIGN FANTA SKIN TRUNK 03/30/2008 05/13/2014 ELEVATED SGOT 01/06/2008 02/07/2021 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/2005 04/08/2017 Depressive disorder, not elsewhere classified 02/07/2021 DM (diabetes mellitus) Overview: 07/2016 documented as of this encounter (statuses as of 01/09/2023) [facility] History of Past illness Narrative* Problem Noted Date Resolved Date [facility] 02/07/2021 Other screening mammogram 05/13/20142013 Open wound(s) (multiple) of unspecified site(s), without mention of complication 06/14/2008 05/13/2014 Inflamed seborrheic keratosis 03/30/2008 Actinic keratosis 03/30/2008 05/13/2014 Other chronic dermatitis due to solar radiation 03/30/2008 05/13/2014 Other seborrheic keratosis 03/30/200805/13 DTFB///BENIGN FANTA SKIN LEG 03/30/200804/08 NEVUS/IDN//BENIGN FANTA SKIN TRUNK 03/30/2008 05/13/2014 ELEVATED SGOT 01/06/2008 02/07/2021 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/2005 04/08/2017 Depressive disorder, not elsewhere classified 02/07/2021 DM (diabetes mellitus) 0 Overview: 07/2016 documented as of this encounter (statuses as of 01/29/2023) [facility] History of Past illness Narrative* Problem Noted Date Resolved Date Idiopathic chronic gout of multiple sites withou t tophus 08/02/2020 02/07/2021 Other screening mammogram 05/13/20142013 Open wound(s) (multiple) of unspecified site(s), without mention of complication 06/14/2008 05/13/2014 Inflamed seborrheic keratosis 03/30/2008 Actinic keratosis 03/30/2008 05/13/2014 Other chronic dermatitis due to solar radiation 03/30/2008 05/13/2014 Other seborrheic keratosis 03/30/200805/13 DTFB///BENIGN FANTA SKIN LEG 03/30/200804/08 NEVUS/IDN//BENIGN FANTA SKIN TRUNK 03/30/2008 05/13/2014 ELEVATED SGOT 01/06/2008 02/07/2021 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/2005 04/08/2017 Depressive disorder, not elsewhere classified 02/07/2021 DM (diabetes mellitus) 0 Overview: 07/2016 documented as of this encounter (statuses as of 02/20/2023) [facility] of Past illness Narrative* Problem Noted Date Resolved Date Idiopathic chronic gout of multiple sites withou t tophus 08/02/2020 02/07/2021 Other screening mammogram 05/13/20142013 Open wound(s) (multiple) of unspecified site(s), without mention of complication 06/14/2008 05/13/2014 Inflamed seborrheic keratosis 03/30/2008 Actinic keratosis 03/30/2008 05/13/2014 Other chronic dermatitis due to solar radiation 03/30/2008 05/13/2014 Other seborrheic keratosis 03/30/200805/13 DTFB///BENIGN FANTA SKIN LEG 03/30/200804/08 NEVUS/IDN//BENIGN FANTA SKIN TRUNK 03/30/2008 05/13/2014 ELEVATED SGOT 01/06/2008 02/07/2021 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/2005 04/08/2017 Depressive disorder, not elsewhere classified 02/07/2021 DM (diabetes mellitus) 0 Overview: 07/2016 documented as of this encounter (statuses as of 03/19/2023) [facility] History of Past illness Narrative* Problem Noted Date Resolved Date Idiopathic chronic gout of multiple sites withou t tophus 08/02/2020 02/07/2021 Other screening mammogram 05/13/20142013 Open wound(s) (multiple) of unspecified site(s), without mention of complication 06/14/2008 05/13/2014 Inflamed seborrheic keratosis 03/30/2008 Actinic keratosis 03/30/2008 05/13/2014 Other chronic dermatitis due to solar radiation 03/30/2008 05/13/2014 Other seborrheic keratosis 03/30/200805/13 DTFB///BENIGN FANTA SKIN LEG 03/30/200804/08 NEVUS/IDN//BENIGN FANTA SKIN TRUNK 03/30/2008 05/13/2014 ELEVATED SGOT 01/06/2008 02/07/2021 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/2005 04/08/2017 Depressive disorder, not elsewhere classified 02/07/2021 DM (diabetes mellitus) 0 Overview: 07/2016 documented as of this encounter (statuses as of 03/27/2023) [facility] History of Past illness Narrative* Problem Noted Date Resolved Date Idiopathic chronic gout of multiple sites withou t tophus 08/02/2020 02/07/2021 Other screening mammogram 05/13/20142013 Open wound(s) (multiple) of unspecified site(s), without mention of complication 06/14/2008 05/13/2014 Inflamed seborrheic keratosis 03/30/2008 Actinic keratosis 03/30/2008 05/13/2014 Other chronic dermatitis due to solar radiation 03/30/2008 05/13/2014 Other seborrheic keratosis 03/30/200805/13 DTFB///BENIGN FANTA SKIN LEG 03/30/200804/08 NEVUS/IDN//BENIGN FANTA SKIN TRUNK 03/30/2008 05/13/2014 ELEVATED SGOT 01/06/2008 02/07/2021 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/2005 04/08/2017 Depressive disorder, not elsewhere classified 02/07/2021 DM (diabetes mellitus) Overview: 07/2016 documented as of this encounter (statuses as of 03/27/2023) [facility] of Past illness Narrative* Problem Noted Date Diagnosed Date Resolved Date 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 08/02/2020 02/07/2021 Other screening mammogram 05/13/2014 Open wound(s) (multiple) of unspecified site(s), without mention of complication 06/14/2008 05/13/2014 Inflamed seborrheic keratosis 03/30/2008 05/13/2014 Actinic keratosis 03/30/2008 05/13/2014 Other chronic dermatitis due to solar radiation 03/30/2008 05/13/2014 Other seborrheic keratosis 03/30/2008 0 05/13/2014 DTFB///BENIGN FANTA SKIN LEG 03/30/2008 0 04/08/2017 NEVUS/IDN//BENIGN FANTA SKIN TRUNK 03/30/2008 05/13/2014 ELEVATED SGOT 01/06/2008 02/07/2021 Personal history of other di seases of circulatory system 12/10/2005 04/08/2017 Depressive disorder, not elsewhere classified 12/11/19 06 02/07/2021 DM (diabetes mellitus) 06/12 Overview: 07/2016 documented as of this encounter (statuses as of 03/31/2023) [facility] of Past illness Narrative* Problem Noted Date Diagnosed Date Resolved Date 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 08/02/2020 02/07/2021 Other screening mammogram 05/13/2014 Open wound(s) (multiple) of unspecified site(s), without mention of complication 06/14/2008 05/13/2014 Inflamed seborrheic keratosis 03/30/2008 05/13/2014 Actinic keratosis 03/30/2008 05/13/2014 Other chronic dermatitis due to solar radiation 03/30/2008 05/13/2014 Other seborrheic keratosis 03/30/2008 0 05/13/2014 DTFB///BENIGN FANTA SKIN LEG 03/30/2008 0 04/08/2017 NEVUS/IDN//BENIGN FANTA SKIN TRUNK 03/30/2008 05/13/2014 ELEVATED SGOT 01/06/2008 02/07/2021 Personal history of other di seases of circulatory system 12/10/2005 04/08/2017 Depressive disorder, not elsewhere classified 12/11/19 06 02/07/2021 DM (diabetes mellitus) 06/12 Overview: 07/2016 documented as of this encounter (statuses as of 05/20/2023) [facility]11-[facility]-2020 History of Past illness Narrative* Problem Noted Date Diagnosed Date Resolved Date 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 08/02/2020 02/07/2021 Other screening mammogram 05/13/2014 Open wound(s) (multiple) of unspecified site(s), without mention of complication 06/14/2008 05/13/2014 Inflamed seborrheic keratosis 03/30/2008 05/13/2014 Actinic keratosis 03/30/2008 05/13/2014 Other chronic dermatitis due to solar radiation 03/30/2008 05/13/2014 Other seborrheic keratosis 03/30/2008 0 05/13/2014 DTFB///BENIGN FANTA SKIN LEG 03/30/2008 0 04/08/2017 NEVUS/IDN//BENIGN FANTA SKIN TRUNK 03/30/2008 05/13/2014 ELEVATED SGOT 01/06/2008 02/07/2021 Personal history of other di seases of circulatory system 12/10/2005 04/08/2017 Depressive disorder, not elsewhere classified 12/11/19 06 02/07/2021 DM (diabetes mellitus) 06/12 Overview: 07/2016 documented as of this encounter (statuses as of 05/29/2023) [facility] History of Past illness Narrative* Problem Noted Date Diagnosed Date Resolved Date 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 08/02/2020 02/07/2021 Other screening mammogram 05/13/2014 Open wound(s) (multiple) of unspecified site(s), without mention of complication 06/14/2008 05/13/2014 Inflamed seborrheic keratosis 03/30/2008 05/13/2014 Actinic keratosis 03/30/2008 05/13/2014 Other chronic dermatitis due to solar radiation 03/30/2008 05/13/2014 Other seborrheic keratosis 03/30/2008 0 05/13/2014 DTFB///BENIGN FANTA SKIN LEG 03/30/2008 0 04/08/2017 NEVUS/IDN//BENIGN FANTA SKIN TRUNK 03/30/2008 05/13/2014 ELEVATED SGOT 01/06/2008 02/07/2021 Personal history of other di seases of circulatory system 12/10/2005 04/08/2017 Depressive disorder, not elsewhere classified 12/11/19 06 02/07/2021 DM (diabetes mellitus) 06/12 Overview: 07/2016 documented as of this encounter (statuses as of 07/23/2023) [facility] History of Past illness Narrative* Problem Noted Date Diagnosed Date Resolved Date 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 08/02/2020 02/07/2021 Other screening mammogram 05/13/2014 Open wound(s) (multiple) of unspecified site(s), without mention of complication 06/14/2008 05/13/2014 Inflamed seborrheic keratosis 03/30/2008 05/13/2014 Actinic keratosis 03/30/2008 05/13/2014 Other chronic dermatitis due to solar radiation 03/30/2008 05/13/2014 Other seborrheic keratosis 03/30/2008 0 05/13/2014 DTFB///BENIGN FANTA SKIN LEG 03/30/2008 0 04/08/2017 NEVUS/IDN//BENIGN FANTA SKIN TRUNK 03/30/2008 05/13/2014 ELEVATED SGOT 01/06/2008 02/07/2021 Personal history of other di seases of circulatory system 12/10/2005 04/08/2017 Depressive disorder, not elsewhere classified 12/11/1902/07/2021 DM (diabetes mellitus) 06/12 Overview: 07/2016 documented as of this encounter (statuses as of 07/27/2023) [facility] History of Past illness Narrative* Problem Noted Date Diagnosed Date Resolved Date 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 08/02/2020 02/07/2021 Other screening mammogram 05/13/2014 Open wound(s) (multiple) of unspecified site(s), without mention of complication 06/14/2008 05/13/2014 Inflamed seborrheic keratosis 03/30/2008 05/13/2014 Actinic keratosis 03/30/2008 05/13/2014 Other chronic dermatitis due to solar radiation 03/30/2008 05/13/2014 Other seborrheic keratosis 03/30/2008 0 05/13/2014 DTFB///BENIGN FANTA SKIN LEG 03/30/2008 0 04/08/2017 NEVUS/IDN//BENIGN FANTA SKIN TRUNK 03/30/2008 05/13/2014 ELEVATED SGOT 01/06/2008 02/07/2021 Personal history of other di seases of circulatory system 12/10/2005 04/08/2017 Depressive disorder, not elsewhere classified 12/11/19 06 02/07/2021 DM (diabetes mellitus) 06/12 Overview: 07/2016 documented as of this encounter (statuses as of 07/27/2023) [facility] History of Past illness Narrative* Problem Noted Date Diagnosed Date Resolved Date 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 08/02/2020 02/07/2021 Other screening mammogram 05/13/2014 Open wound(s) (multiple) of unspecified site(s), without mention of complication 06/14/2008 05/13/2014 Inflamed seborrheic keratosis 03/30/2008 05/13/2014 Actinic keratosis 03/30/2008 05/13/2014 Other chronic dermatitis due to solar radiation 03/30/2008 05/13/2014 Other seborrheic keratosis 03/30/2008 0 05/13/2014 DTFB///BENIGN FANTA SKIN LEG 03/30/2008 0 04/08/2017 NEVUS/IDN//BENIGN FANTA SKIN TRUNK 03/30/2008 05/13/2014 ELEVATED SGOT 01/06/2008 02/07/2021 Personal history of other di seases of circulatory system 12/10/2005 04/08/2017 Depressive disorder, not elsewhere classified 12/11/1902/07/2021 DM (diabetes mellitus) 06/12 Overview: 07/2016 documented as of this encounter (statuses as of 07/31/2023) [facility] History of Past illness Narrative* Problem Noted Date Diagnosed Date Resolved Date 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 08/02/2020 02/07/2021 Other screening mammogram 05/13/2014 Open wound(s) (multiple) of unspecified site(s), without mention of complication 06/14/2008 05/13/2014 Inflamed seborrheic keratosis 03/30/2008 05/13/2014 Actinic keratosis 03/30/2008 05/13/2014 Other chronic dermatitis due to solar radiation 03/30/2008 05/13/2014 Other seborrheic keratosis 03/30/2008 0 05/13/2014 DTFB///BENIGN FANTA SKIN LEG 03/30/2008 0 04/08/2017 NEVUS/IDN//BENIGN FANTA SKIN TRUNK 03/30/2008 05/13/2014 ELEVATED SGOT 01/06/2008 02/07/2021 Personal history of other di seases of circulatory system 12/10/2005 04/08/2017 Depressive disorder, not elsewhere classified 12/11/1902/07/2021 DM (diabetes mellitus) 06/12 Overview: 07/2016 documented as of this encounter (statuses as of 08/27/2023) [facility] History of Past illness Narrative* Problem Noted Date Diagnosed Date Resolved Date 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 08/02/2020 02/07/2021 Other screening mammogram 05/13/2014 Open wound(s) (multiple) of unspecified site(s), without mention of complication 06/14/2008 05/13/2014 Inflamed seborrheic keratosis 03/30/2008 05/13/2014 Actinic keratosis 03/30/2008 05/13/2014 Other chronic dermatitis due to solar radiation 03/30/2008 05/13/2014 Other seborrheic keratosis 03/30/2008 0 05/13/2014 DTFB///BENIGN FANTA SKIN LEG 03/30/2008 0 04/08/2017 NEVUS/IDN//BENIGN FANTA SKIN TRUNK 03/30/2008 05/13/2014 ELEVATED SGOT 01/06/2008 02/07/2021 Personal history of other di seases of circulatory system 12/10/2005 04/08/2017 Depressive disorder, not elsewhere classified 12/11/19 06 02/07/2021 DM (diabetes mellitus) 06/12 Overview: 07/2016 documented as of this encounter (statuses as of 08/28/2023) [facility] History of Past illness Narrative* Problem Noted Date Diagnosed Date Resolved Date 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 08/02/2020 02/07/2021 Other screening mammogram 05/13/2014 Open wound(s) (multiple) of unspecified site(s), without mention of complication 06/14/2008 05/13/2014 Inflamed seborrheic keratosis 03/30/2008 05/13/2014 Actinic keratosis 03/30/2008 05/13/2014 Other chronic dermatitis due to solar radiation 03/30/2008 05/13/2014 Other seborrheic keratosis 03/30/2008 0 05/13/2014 DTFB///BENIGN FANTA SKIN LEG 03/30/2008 0 04/08/2017 NEVUS/IDN//BENIGN FANTA SKIN TRUNK 03/30/2008 05/13/2014 ELEVATED SGOT 01/06/2008 02/07/2021 Personal history of other di seases of circulatory system 12/10/2005 04/08/2017 Depressive disorder, not elsewhere classified 12/11/19 06 02/07/2021 DM (diabetes mellitus) 06/12 Overview: 07/2016 documented as of this encounter (statuses as of 08/29/2023) [facility] History of Past illness Narrative* Problem Noted Date Diagnosed Date Resolved Date 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 08/02/2020 02/07/2021 Other screening mammogram 05/13/2014 Open wound(s) (multiple) of unspecified site(s), without mention of complication 06/14/2008 05/13/2014 Inflamed seborrheic keratosis 03/30/2008 05/13/2014 Actinic keratosis 03/30/2008 05/13/2014 Other chronic dermatitis due to solar radiation 03/30/2008 05/13/2014 Other seborrheic keratosis 03/30/2008 0 05/13/2014 DTFB///BENIGN FANTA SKIN LEG 03/30/2008 0 04/08/2017 NEVUS/IDN//BENIGN FANTA SKIN TRUNK 03/30/2008 05/13/2014 ELEVATED SGOT 01/06/2008 02/07/2021 Personal history of other di seases of circulatory system 12/10/2005 04/08/2017 Depressive disorder, not elsewhere classified 12/11/19 06 02/07/2021 DM (diabetes mellitus) 06/12 Overview: 07/2016 documented as of this encounter (statuses as of 09/02/2023) [facility] History of Past illness Narrative* Problem Noted Date Diagnosed Date Resolved Date 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 08/02/2020 02/07/2021 Other screening mammogram 05/13/2014 Open wound(s) (multiple) of unspecified site(s), without mention of complication 06/14/2008 05/13/2014 Inflamed seborrheic keratosis 03/30/2008 05/13/2014 Actinic keratosis 03/30/2008 05/13/2014 Other chronic dermatitis due to solar radiation 03/30/2008 05/13/2014 Other seborrheic keratosis 03/30/2008 0 05/13/2014 DTFB///BENIGN FANTA SKIN LEG 03/30/2008 0 04/08/2017 NEVUS/IDN//BENIGN FANTA SKIN TRUNK 03/30/2008 05/13/2014 ELEVATED SGOT 01/06/2008 02/07/2021 Personal history of other di seases of circulatory system 12/10/2005 04/08/2017 Depressive disorder, not elsewhere classified 12/11/19 06 02/07/2021 DM (diabetes mellitus) 06/12 Overview: 07/2016 documented as of this encounter (statuses as of 09/05/2023) [facility] Pure hypercholesterolemia- Primary Essential hypertension, benign Controlled type 2 diabetes mellitus without complication, without long-term current use of insulin (HCC) [facility] Controlled type 2 diabetes mellitus without complication, without long-term current use of insulin (HCC)- Primary Palpitations Essential hypertension, benign Mitral valve disorder Mitral valve disorders Dysthymia Dysthymic disorder Pure hypercholesterolemia ADELAIDE (generalized anxiety disorder) Generalized anxiety disorder Arthritis, multiple joint involvement Unspecified arthropathy, multiple sites Vitamin D deficiency Unspecified vitamin D deficiency [facility] Diagnosis Foot pain, right- Primary Pain in limb [facility] Diagnosis Foot pain, right Pain in limb [facility] Diagnosis Intertrigo Other specified erythematous condition [facility] Diagnosis Controlled type 2 diabetes mellitus without complication, without long-term current use of insulin (HCC)- Primary Essential hypertension, benign Pure hypercholesterolemia Dysthymia Dysthymic disorder Palpitations Mitral valve disorder Mitral valve disorders Arthritis, multiple joint involvement Unspecified arthropathy, multiple sites ADELAIDE (generalized anxiety disorder) Generalized anxiety disorder Vitamin D deficiency Unspecified vitamin D deficiency Idiopathic chronic gout of m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 Chronic gouty arthropathy without mention of tophus (tophi) [facility] Diagnosis Recurrent UTI (urinary tract infection)- Primary Urinary tract infection, site not specified Cellulitis of skin Cellulitis and abscess of unspecified site SOB (shortness of breath) Shortness of breath ELIZABETH (dyspnea on exertion) Other dyspnea and respiratory abnormality Acute cough documented in this encounter [facility] note* Diagnosis Cellulitis of skin- Primary Cellulitis and abscess of unspecified site Essential hypertension, benign ELIZABETH (dyspnea on exertion) Other dyspnea and respiratory abnormality documented in this encounter [facility] note* Diagnosis ADELAIDE (generalized anxiety disorder) Generalized anxiety disorder [facility] Diagnosis Controlled type 2 diabetes mellitus without complication, without long-term current use of insulin (HCC)- Primary Foot pain, right Pain in limb Chronic pain of both knees Arthritis, multiple joint involvement Unspecified arthropathy, multiple sites documented in this encounter [facility] note* Diagnosis Contact dermatitis, unspecified contact dermatitis type, unspecified trigger- Primary Acute pain of right shoulder documented in this encounter [facility] note* Diagnosis Chronic right shoulder pain- Primary Pain in joint, shoulder region Encounter for screening for cardiovascular disorders Screening for other and unspecified cardiovascular conditions Essential hypertension, benign Controlled type 2 diabetes mellitus without complication, without long-term current use of insulin (HCC) ELIZABETH (dyspnea on exertion) Other dyspnea and respiratory abnormality Palpitations Pure hypercholesterolemia Vitamin D deficiency Unspecified vitamin D deficiency Fatigue, unspecified type Chronic bilateral thoracic back pain documented in this encounter [facility] note* Diagnosis Encounter for screening for cardiovascular disorders- Primary Screening for other and unspecified cardiovascular conditions documented in this encounter [facility] note* Diagnosis SOB (shortness of breath) Shortness of breath ELIZABETH (dyspnea on exertion) Other dyspnea and respiratory abnormality documented in this encounter [facility] note* Diagnosis Personal history of malignant neoplasm of breast- Primary Mass of upper inner quadrant of left breast [facility]* Diagnosis Personal history of malignant neoplasm of breast- Primary Mass of upper inner quadrant of left breast [facility]* Diagnosis Coronary artery disease due to lipid rich plaque- Primary ADELAIDE (generalized anxiety disorder) Generalized anxiety disorder Lump in chest Swelling, mass, or lump in chest Controlled type 2 diabetes mellitus without complication, without long-term current use of insulin (HCC) Vitamin D deficiency Unspecified vitamin D deficiency Hyperlipidemia associated with type 2 diabetes mellitus (HCC) Disorder of carotid artery (HCC) Unspecified disorders of arteries and arterioles Type 2 diabetes mellitus with stage 3a chronic kidney disease, without long-term current use of insulin (HCC) Angina pectoris (HCC) Other and unspecified angina pectoris Stage 3a chronic kidney disease (HCC) documented in this encounter [facility] course Narrative No data available for this section [facility] Reason for referral (narrative)* Diagnostic Procedure Only (Routine) - Closed Specialty Diagnoses / Procedures Referred By Barbara t Referred To Contact XR IMAGING Diagnoses Foot pain, right Procedures XR FOOT GENERAL 3V AP/LAT/OBL RIGHT RADEX FOOT COMPLETE MINIMUM 3 VIEWS Maciel Murray APRN.CNP [address] [place] [address] Xr Imaging Referral ID Status Reason Start Date Expiration Date V isits Requested Visits Authorized [id number] Closed Auto-Generate d Referral 04/15/2022 05/15/2023 1 1 [facility] for referral (narrative)* Diagnostic Procedure Only (Routine) - Authorized Specialty Diagnoses / Procedures Referred By Barbara araiza Referred To Contact MOLECULAR & FUNCTIONAL IMAGING Diagnoses SOB (shortness of breath) ELIZABETH (dyspnea on exertion) Procedures NM CARDIAC PERF STRESS/PHARM MYOCARDIAL SPECT MULTIPLE STUDIES Maciel Reynaga APRN.CNP [address] [place] [address] Molecular & Functional Imaging [address] [place] [address] Referral ID Status Reason Start Date Expiration Date Visits Requested Visits Authorized [id number] Authorized Auto-Generat ed Referral 01/01/2023 01/31/2024 1 1 * Outpatient Procedure (Routine) - Pending Review Specialty Diagnoses / Procedures Referred By Barbara t Referred To Contact Diagnoses SOB (shortness of breath) ELIZABETH (dyspnea on exertion) Procedures CARDIAC DRUG STRESS TEST ERGONOVINE [employer]OV[employer]ATION TST Maciel Reynaga APRN.SLD TEACHER [address] [place] [address] Referral ID Status Reason Start Date Expiration Date Visits Requested Visits Authorized [id number] Pending Review Auto-Generat ed Referral 01/01/2023 01/02/2024 1 1 * Outpatient Procedure (Routine) - Authorized Specialty Diagnoses / Procedures Referred By Contac t Referred To Contact [facility] Diagnoses SOB (shortness of breath) ELIZABETH (dyspnea on exertion) Procedures ECHO ECHO TTHRC R-T 2D W/WOM-MODE COMPL SPEC&COLR D Maciel Reynaga APRN.SLD TEACHER [address] [place] [address] [facility] [address] [place] [address] Referral ID Status Reason Start Date Expiration Date Visits Requested Visits Authorized [id number] Authorized Auto-Generat ed Referral 01/01/2023 01/01/2024 1 1 [facility] for referral (narrative)* Diagnostic Procedure Only (Routine) - Closed Specialty Diagnoses / Procedures Referred By Contac t Referred To Contact XR IMAGING Diagnoses Acute pain of right shoulder Procedures XR SHOULDER GENERAL 3V OR MORE AP/TRUE AP/OTHER RIGHT RADEX SHOULDER COMPLETE MINIMUM 2 VIEWS Carol Garcia APRN.SLD TEACHER [address] [place] [address] Xr Imaging Referral ID Status Reason Start Date Expiration Date V isits Requested Visits Authorized [id number] Closed Auto-Generate d Referral 03/26/2023 04/24/2024 1 1 [facility] for referral (narrative)* Diagnostic Procedure Only (Routine) - Closed Specialty Diagnoses / Procedures Referred By Contac t Referred To Contact XR IMAGING Diagnoses Chronic bilateral thoracic back pain Procedures XR THORACIC GENERAL 3V AP/LAT/SWIMMERS RADEX SPINE THORACIC 3 VIEWS Nico Vargas, [address] [place] [address] [place] [address] Referral ID Status Reason Start Date Expiration Date V isits Requested Visits Authorized [id number] Closed Auto-Generate d Referral 05/20/2023 06/18/2024 1 1 [facility] for referral (narrative)* Diagnostic Procedure Only (Routine) - Closed Specialty Diagnoses / Procedures Referred By Contac t Referred To Contact MOLECULAR & FUNCTIONAL IMAGING Diagnoses SOB (shortness of breath) ELIZABETH (dyspnea on exertion) Procedures NM CARDIAC PERF STRESS/PHARM MYOCARDIAL SPECT MULTIPLE STUDIES Maciel Reynaga APRN.SLD TEACHER [address] [place] [address] Molecular & Functional Imaging [address] [place] [address] Referral ID Status Reason Start Date Expiration Date V isits Requested Visits Authorized [id number] Closed Auto-Generate d Referral 01/01/2023 01/31/2024 1 1 [facility] for referral (narrative)* Diagnostic Procedure Only (Routine) - Authorized Specialty Diagnoses / Procedures Referred By Contac t Referred To Contact BR IMAGING Diagnoses Personal history of malignant neoplasm of breast Mass of upper inner quadrant of left breast Procedures LEIA DIAGNOSTIC BILATERAL DIAGNOSTIC MAMMOGRAPHY COMPUTER-AIDED DETCJ BI Maciel Reynaga APRN.SLD TEACHER [address] [place] [address] [facility] [address] [place] [address] Referral ID Status Reason Start Date Expiration Date Visits Requested Visits Authorized [id number] Authorized Auto-Generat ed Referral 08/27/2023 09/25/2024 1 1 * Diagnostic Procedure Only (Routine) - Authorized Specialty Diagnoses / Procedures Referred By Barbara araiza Referred To Contact BR IMAGING Diagnoses Encounter for immunization Personal history of malignant neoplasm of breast Mass of upper inner quadrant of left breast Procedures US BREAST LTD RIGHT US BREAST UNI REAL TIME WITH IMAGE LIMITED Maciel Reynaga APRN.SLD TEACHER [address] [place] [address] [facility] [address] [place] [address] Referral ID Status Reason Start Date Expiration Date Visits Requested Visits Authorized [id number] Authorized Auto-Generat ed Referral 08/27/2023 09/25/2024 1 1 * Diagnostic Procedure Only (Routine) - Authorized Specialty Diagnoses / Procedures Referred By Barbara araiza Referred To Contact US IMAGING Diagnoses Encounter for immunization Personal history of malignant neoplasm of breast Mass of upper inner quadrant of left breast Procedures US CHEST WALL/SOFT TISSUE US CHEST REAL TIME W/IMAGE DOCUMENTATION Maciel Reynaga APRN.SLD TEACHER [address] [place] [address] [place] [address] Referral ID Status Reason Start Date Expiration Date Visits Requested Visits Authorized [id number] Authorized Auto-Generat ed Referral 08/27/2023 09/25/2024 1 1 [facility] for referral (narrative)* Diagnostic Procedure Only (Routine) - Pending Review Specialty Diagnoses / Procedures Referred By Barbara t Referred To Contact BR IMAGING Diagnoses Personal history of malignant neoplasm of breast Mass of upper inner quadrant of left breast Procedures LEIA DIAGNOSTIC RIGHT DIAGNOSTIC MAMMOGRAPHY COMPUTER-AIDED DETCJ UNI Maciel Reynaga APRN.SLD TEACHER [address] [place] [address] [facility] [address] [place] [address] Referral ID Status Reason Start Date Expiration Date Visits Requested Visits Authorized [id number] Pending Review Auto-Generat ed Referral 08/29/2023 09/27/2024 1 1 [facility] for referral (narrative)* Diagnostic Procedure Only (Routine) - Authorized Specialty Diagnoses / Procedures Referred By Contniru araiza Referred To Contact BR IMAGING Diagnoses Lump in chest Procedures US BREAST LTD LEFT US BREAST UNI REAL TIME WITH IMAGE LIMITED Nico Vargas DO [address] [place] [address] [facility] [address] [place] [address] Referral ID Status Reason Start Date Expiration Date Visits Requested Visits Authorized [id number] Authorized Auto-Generat ed Referral 3 09/30/2024 1 1 [facility] for visit Narrative* Diagnostic Procedure Only (Routine) - Closed Specialty Diagnoses / Procedures Referred By Barbara araiza Referred To Contact MOLECULAR & FUNCTIONAL IMAGING Diagnoses SOB (shortness of breath) ELIZABETH (dyspnea on exertion) Procedures NM CARDIAC PERF STRESS/PHARM MYOCARDIAL SPECT MULTIPLE STUDIES Maciel Reynaga APRN.CNP [address] [place] [address] Molecular [facility] Functional [facility] [address] [place] [address] Referral ID Status Reason Start Date Expiration Date V isits Requested Visits Authorized [id number] Closed Auto-Generate d Referral 01/01/2023 01/31/2024 1 1 [facility] Advance Directives No Advanced Directives Records FoundDocuments on File Type Date Recorded Patient Visual Stylist Expl anation Advance Directive(s) 02/27/2021 2:18 PM Documents on File Type Date Recorded Patient Visual Stylist Expl anation Advance Directive(s) 02/27/2021 2:18 PM Summary Purpose Family History No Family History Records Found Additional Source Comments Source Comments (unrecognize d section and content) In the event this informatio n is protected by the Federal Confidentiality of Alcohol and Drug Abuse Patient Records regulations: The Federal rules restrict any use of the information to criminally investigate or prosecute any alcohol or drug abuse patient.[facility] event this information is protected by the Federal Confidentiality of Alcohol and Drug Abuse Patient Records regulations: The Federal rules restrict any use of the information to criminally investigate or prosecute any alcohol or drug abuse patient.[facility] event this information is protected by the Federal Confidentiality of Alcohol and Drug Abuse Patient Records regulations: The Federal rules restrict any use of the information to criminally investigate or prosecute any alcohol or drug abuse patient.[facility]In the event this information is protected by the Federal Confidentiality of Alcohol and Drug Abuse Patient Records regulations: The Federal rules restrict any use of the information to criminally investigate or prosecute any alcohol or drug abuse patient.[facility] HospitalIn the event this information is protected by the Federal Confidentiality of Alcohol and Drug Abuse Patient Records regulations: The Federal rules restrict any use of the information to criminally investigate or prosecute any alcohol or drug abuse patient.[facility] HospitalIn the event this information is protected by the Federal Confidentiality of Alcohol and Drug Abuse Patient Records regulations: The Federal rules restrict any use of the information to criminally investigate or prosecute any alcohol or drug abuse patient.[facility] HospitalIn the event this information is protected by the Federal Confidentiality of Alcohol and Drug Abuse Patient Records regulations: The Federal rules restrict any use of the information to criminally investigate or prosecute any alcohol or drug abuse patient.[facility] HospitalIn the event this information is protected by the Federal Confidentiality of Alcohol and Drug Abuse Patient Records regulations: The Federal rules restrict any use of the information to criminally investigate or prosecute any alcohol or drug abuse patient.[facility] HospitalIn the event this information is protected by the Federal Confidentiality of Alcohol and Drug Abuse Patient Records regulations: The Federal rules restrict any use of the information to criminally investigate or prosecute any alcohol or drug abuse patient.[facility] HospitalIn the event this information is protected by the Federal Confidentiality of Alcohol and Drug Abuse Patient Records regulations: The Federal rules restrict any use of the information to criminally investigate or prosecute any alcohol or drug abuse patient.[facility] HospitalIn the event this information is protected by the Federal Confidentiality of Alcohol and Drug Abuse Patient Records regulations: The Federal rules restrict any use of the information to criminally investigate or prosecute any alcohol or drug abuse patient.[facility] HospitalIn the event this information is protected by the Federal Confidentiality of Alcohol and Drug Abuse Patient Records regulations: The Federal rules restrict any use of the information to criminally investigate or prosecute any alcohol or drug abuse patient.[facility] HospitalIn the event this information is protected by the Federal Confidentiality of Alcohol and Drug Abuse Patient Records regulations: The Federal rules restrict any use of the information to criminally investigate or prosecute any alcohol or drug abuse patient.[facility] HospitalIn the event this information is protected by the Federal Confidentiality of Alcohol and Drug Abuse Patient Records regulations: The Federal rules restrict any use of the information to criminally investigate or prosecute any alcohol or drug abuse patient.[facility] HospitalIn the event this information is protected by the Federal Confidentiality of Alcohol and Drug Abuse Patient Records regulations: The Federal rules restrict any use of the information to criminally investigate or prosecute any alcohol or drug abuse patient.[facility] HospitalIn the event this information is protected by the Federal Confidentiality of Alcohol and Drug Abuse Patient Records regulations: The Federal rules restrict any use of the information to criminally investigate or prosecute any alcohol or drug abuse patient.[facility] HospitalIn the event this information is protected by the Federal Confidentiality of Alcohol and Drug Abuse Patient Records regulations: The Federal rules restrict any use of the information to criminally investigate or prosecute any alcohol or drug abuse patient.[facility] HospitalIn the event this information is protected by the Federal Confidentiality of Alcohol and Drug Abuse Patient Records regulations: The Federal rules restrict any use of the information to criminally investigate or prosecute any alcohol or drug abuse patient.[facility] HospitalIn the event this information is protected by the Federal Confidentiality of Alcohol and Drug Abuse Patient Records regulations: The Federal rules restrict any use of the information to criminally investigate or prosecute any alcohol or drug abuse patient.[facility] HospitalIn the event this information is protected by the Federal Confidentiality of Alcohol and Drug Abuse Patient Records regulations: The Federal rules restrict any use of the information to criminally investigate or prosecute any alcohol or drug abuse patient.[facility] HospitalIn the event this information is protected by the Federal Confidentiality of Alcohol and Drug Abuse Patient Records regulations: The Federal rules restrict any use of the information to criminally investigate or prosecute any alcohol or drug abuse patient.[facility] HospitalIn the event this information is protected by the Federal Confidentiality of Alcohol and Drug Abuse Patient Records regulations: The Federal rules restrict any use of the information to criminally investigate or prosecute any alcohol or drug abuse patient.[facility] HospitalIn the event this information is protected by the Federal Confidentiality of Alcohol and Drug Abuse Patient Records regulations: The Federal rules restrict any use of the information to criminally investigate or prosecute any alcohol or drug abuse patient.[facility] HospitalIn the event this information is protected by the Federal Confidentiality of Alcohol and Drug Abuse Patient Records regulations: The Federal rules restrict any use of the information to criminally investigate or prosecute any alcohol or drug abuse patient.[facility] HospitalIn the event this information is protected by the Federal Confidentiality of Alcohol and Drug Abuse Patient Records regulations: The Federal rules restrict any use of the information to criminally investigate or prosecute any alcohol or drug abuse patient.[facility] HospitalIn the event this information is protected by the Federal Confidentiality of Alcohol and Drug Abuse Patient Records regulations: The Federal rules restrict any use of the information to criminally investigate or prosecute any alcohol or drug abuse patient.[facility] HospitalIn the event this information is protected by the Federal Confidentiality of Alcohol and Drug Abuse Patient Records regulations: The Federal rules restrict any use of the information to criminally investigate or prosecute any alcohol or drug abuse patient.[facility] HospitalIn the event this information is protected by the Federal Confidentiality of Alcohol and Drug Abuse Patient Records regulations: The Federal rules restrict any use of the information to criminally investigate or prosecute any alcohol or drug abuse patient.[facility] Reason for Visit (unrecogniz ed section and content) Reason Comments Follow Up 6 months Reason Comments Results faxed to [facility] Reason Onset Date Comments Refill Request 03/21/2022 Reason Comments Pain rt foot pain Reason Onset Date Comments Refill Request 04/15/2022 Reason Onset Date Comments Refill Request 06/04/2022 Reason Comments 6 Month Exam Reason Comments Abrasion LEFT lower extremity x 2 weeks Reason Comments Cellulitis Reason Comments Refill Request Reason Comments order for Alma Johns Reason Comments Patient Update Patient Question Reason Comments BP update blood pressure readi ngs Reason Comments Rash L inner thigh, L and R side of face x 4 days; using otc hydrocortisone cream Reason Onset Date Comments Refill Request 03/31/2023 Reason Comments F/U [address]-insurance denied Reason Comments Radiology NM Specialty Diagnoses / Procedures Referred By Contac t Referred To Contact MOLECULAR & FUNCTIONAL IMAGING Diagnoses SOB (shortness of breath) ELIZABETH (dyspnea on exertion) Procedures NM CARDIAC PERF STRESS/PHARM MYOCARDIAL SPECT MULTIPLE STUDIES Maciel Reynaga APRN.[employer]D TEACHER [address] [place] [address] Molecular & Functional Imaging [address] [place] [id number] Referral ID Status Reason Start Date Expiration Date V isits Requested Visits Authorized [id number] Closed Auto-Generate d Referral 01/01/2023 01/31/2024 1 1 Reason Comments Results Reason Comments Lump Reason Comments Appointment Patient Update Reason Comments Orders Reason Comments Follow Up Care Teams (unrecognized sec tion and content) Marketing Director Assisted Living Relationship Specialty Start Date End Date Nico Vargas DO [address] [place] [address] PCP - General Family Practice 03/15/17 Marketing Director Assisted Living Relationship Specialty Start Date End Date Vargas, Nico L, DO [address] [place] [address] PCP - General Family Practice 03/15/17 Marketing Director Assisted Living Relationship Specialty Start Date End Date Nico Vargas, DO [address] [place] [address] PCP - General Family Practice 03/15/17 Marketing Director Assisted Living Relationship Specialty Start Date End Date Nico Vargas, DO [address] [place] [address] PCP - General Family Practice 03/15/17 Marketing Director Assisted Living Relationship Specialty Start Date End Date Nico Vargas, DO [address] [place] [address] PCP - General Family Practice 03/15/17 Marketing Director Assisted Living Relationship Specialty Start Date End Date Nico Vargas, DO [address] [place] [address] PCP - General Family Practice 03/15/17 Marketing Director Assisted Living Relationship Specialty Start Date End Date Nico Vargas, DO [address] [place] [address] PCP - General Family Medicine 03/15/17 Marketing Director Assisted Living Relationship Specialty Start Date End Date Nico Vargas, DO [address] [place] [address] PCP - General Family Medicine 03/15/17 Marketing Director Assisted Living Relationship Specialty Start Date End Date Ncio Vargas, DO [address] [place] [address] PCP - General Family Medicine 03/15/17 Marketing Director Assisted Living Relationship Specialty Start Date End Date Nico Vargas, DO [address] [place] [address] PCP - General Family Medicine 03/15/17 Marketing Director Assisted Living Relationship Specialty Start Date End Date Nico Vargas, DO [address] [place] [address] PCP - General Family Medicine 03/15/17 Marketing Director Assisted Living Relationship Specialty Start Date End Date Nico Vargas, DO [address] [place] [address] PCP - General Family Medicine 03/15/17 Marketing Director Assisted Living Relationship Specialty Start Date End Date Nico Vargas, DO [address] [place] [address] PCP - General Family Medicine 03/15/17 Marketing Director Assisted Living Relationship Specialty Start Date End Date Nico Vargas, DO [address] [place] [address] PCP - General Family Medicine 03/15/17 Marketing Director Assisted Living Relationship Specialty Start Date End Date Nico Vargas DO [address] [place] [address] PCP - General Family Medicine 03/15/17 Marketing Director Assisted Living Relationship Specialty Start Date End Date Nico Vargas DO [address] [place] [address] PCP - General Family Medicine 03/15/17 Marketing Director Assisted Living Relationship Specialty Start Date End Date Nico Vargas DO [address] [place] [address] PCP - General Family Medicine 03/15/17 Marketing Director Assisted Living Relationship Specialty Start Date End Date Nico Vargas DO [address] [place] [address] PCP - General Family Medicine 03/15/17 Marketing Director Assisted Living Relationship Specialty Start Date End Date Nico Vargas DO [address] [place] [address] PCP - General Family Medicine 03/15/17 Marketing Director Assisted Living Relationship Specialty Start Date End Date Nico Vargas DO [address] [place] [address] PCP - General Family Medicine 03/15/17 Marketing Director Assisted Living Relationship Specialty Start Date End Date Nico Vargas DO [address] [facility] [place] [address] PCP - General Family Medicine 03/15/17 Marketing Director Assisted Living Relationship Specialty Start Date End Date Nico Vargas DO [address] [facility] [place] [address] PCP - General Family Medicine 03/15/17 Marketing Director Assisted Living Relationship Specialty Start Date End Date Nico Vargas DO [address] [place] [address] PCP - General Family Medicine 03/15/17 Marketing Director Assisted Living Relationship Specialty Start Date End Date Nico Vargas DO [address] [place] [address] PCP - General Family Medicine 03/15/17 Marketing Director Assisted Living Relationship Specialty Start Date End Date Nico Vargas DO [address] [place] [address] PCP - General Family Medicine 03/15/17 Marketing Director Assisted Living Relationship Specialty Start Date End Date Nico Vargas DO [address] [facility] [place] [address] PCP - General Family Medicine 03/15/17 INFORMATION SOURCE (unrecogn ized section and content) DATE CREATED AUTHOR AUTHOR'S ANNE WOOD 09/29/2023 [facility] FOR RECORDS PERTAINING TO PATIENTS WHO ARE OR HAVE BEEN ENROLLED IN A CHEMICAL DEPENDENCY/SUBSTANCEABUSE PROGRAM, SOME INFORMATION MAY BE OMITTED. This clinical summary was aggregated from multiple sources. Caution should be exercised in using it in the provision of clinical care. This summary normalizes information from multiple sources, and as a consequence, information in this document may materially change the coding, format and clinical context of patient data. In addition, data may be omitted in some cases. CLINICAL DECISIONS SHOULD BE BASED ON THE PRIMARY CLINICAL RECORDS. [employer] [facility]. provides no warranty or guarantee of the accuracy or completeness of information in this document.
== END | disposition home or self-care (01) ==
LOC: PAT 10-03 14:13
PROVIDERS: Nurse Practitioner Family; PCP Student in an Organized Health Care Education/Training Program; Referring Provider Internal Medicine Cardiovascular Disease; Visit Provider Internal Medicine Cardiovascular Disease
DX: R94.31 Abnormal electrocardiogram [ECG] [EKG] (principal); R06.00 Dyspnea, unspecified
CPT/HCPCS: 36415; 71046; 80048; 85025

== ENCOUNTER 2023-08-28 11:43 | Observation (INO) | payer MEDICARE, SELFPAY ==
[2023-08-28 11:44] VITALS: BP 164/79; PULSE 66; RESP 14; TEMP 36.8; O2SAT 98; BMI 27.4
--- NOTE | 2023-08-28 12:19 | RAD_ITS ---
STUDY: X-RAY CHEST REASON FOR EXAM: Female, 88 years old. Chest pain and one week history of shortness of breath. TECHNIQUE: Single AP portable view of the chest. COMPARISON: Comparison is made with prior study August 20, 2023. FINDINGS: Surgical clips are seen in the left axilla and prior left mastectomy. Hyperinflation. Lungs are clear. There is no demonstrated pleural abnormality. Normal size heart. Normal mediastinum and jazmin. Normal visualized pulmonary arteries. There is atherosclerotic calcification of the aortic arch with tortuosity. There is a dextroscoliosis of the thoracic spine. Normal visualized ribs, clavicles, and shoulders. There is no demonstrated abnormality of the visualized soft tissue structures of the upper abdomen. RAD/Chest 1 View (Portable) IMPRESSION: Hyperinflation. The lungs are clear. Stable examination. Electronically Signed: Huang Davis MD at 12:36 EST ,
[2023-08-28 12:23] LABS: Absolute Lymphocyte Count 3.33 X10^3/uL (0.83-4.51); Absolute Neutrophil Count 3.7 X10^3/uL (2.0-7.7); Basophil# 0.07 X10^3/uL; Basophil% 0.8 % (0-1); Eosinophil# 0.46 X10^3/uL; Eosinophils% 5.4 % (0-5); Hematocrit 45.4 % (37-47); Hemoglobin 15.4 g/dL (12.0-15.0); Lymphocyte # 3.33 X10^3/ul (0.83-4.51); Lymphocyte % 39.2 % (19-41); Mean Corp Hgb Conc 33.9 g/dL (32-36); Mean Corpuscular Hgb 30.5 pg (27.0-32.0); Mean Corpuscular Volume 89.9 fL (81-99); Mean Platelet Vol. 9.4 fl (6.2-12.0); Monocyte# 0.91 X10^3/uL; Monocyte% 10.7 % (0-10); NRBC Flagged by Analyzer 0 % (0-5); Neutrophil % 43.7 % (47-70); POSITIVE COUNT YES; Platelet Count 321 K/mm3 (150-450); RBC Distribution Width CV 12.7 % (11.6-14.6); RBC Distribution Width SD 41.5 fl (35.1-43.9); Red Blood Count 5.05 M/mm3 (4.2-5.4); White Blood Count 8.5 K/mm3 (4.4-11.0)
[2023-08-28 12:38] LABS: Anion Gap 6 (5-15); BUN 25 mg/dL (7-18); Calcium,Total 9.6 mg/dL (8.5-10.1); Chloride 97 mmol/L (98-107); Creatinine, Serum 0.92 mg/dL (0.55-1.02); EST Glomerular Filtration Rate 61 mL/min (>60); Est Glom Filt Rate - Afr Amer 74 mL/min (>60); Estimated Creatinine Clearance 34.07 ml/min; Glucose 86 mg/dL (74-106); Potassium 3.8 mmol/L (3.5-5.1); Sodium Level 136 mmol/L (136-145); Troponin-I HS (w/2H Reflex) 23 pg/mL (3.0-54.0)
[2023-08-28 14:12] LABS: Reflex Troponin-HS? (from REC) Y
--- NOTE | 2023-08-28 15:01 | EDS_ITS ---
HPI History of Present Illness Chief Complaint: Chest Pain Informant: patient Narrative Narrative: Patient presents after being referred in by Dr. Valentin's office. Evidently this patient has been having exertional dyspnea, indigestion and chest heaviness for some months or a year. She has noted that over the last week it has gotten worse. She states she gets a heavy feeling in her chest. If she stops it goes away after couple minutes. If she walks or does any activity it comes back. She evidently had an outpatient CT that showed a high coronary artery calcium score. It sounds like she had a nuclear stress test that was negative. But she is now set to have a heart catheterization due to her significant symptoms. They think the heart cath was set for the but they are not completely certain. They called the office today because she was having more symptoms and she was referred in here. Currently she is asymptomatic sitting in bed. She does have a history of high blood pressure and high cholesterol and family history as her father had an MT at 45. She has never had stents or an MT. She is non-smoker. [facility] Medical History Anxiety and depression Essential hypertension History of breast cancer History of carotid artery stenosis History of small bowel obstruction Hyperlipidemia JOSIE on CPAP Type 2 diabetes mellitus without complication Home Medications albuterol sulfate 90 mcg/actuation aerosol inhaler 2 puff inhalation Q6H PRN SHORTNESS OF BREATH 08/23/19 [History Last Taken Unknown] aspirin 81 mg tablet,delayed release (Adult Low Dose Aspirin) 81 mg PO QHS HEART HEALTH 08/23/19 [History Last Taken 08/27/23] cholecalciferol (vitamin D3) 25 mcg (1,000 unit) tablet 1,000 unit PO DAILY 08/23/19 [History Last Taken 08/28/23] clonazepam 0.5 mg tablet 0.25 mg PO BID PRN ANXIETY 08/23/19 [History Last Taken 08/27/23] clonidine HCl 0.2 mg tablet 0.2 mg PO BID BLOOD PRESSURE 08/23/19 [History Last Taken 08/28/23] lovastatin 10 mg tablet 10 mg PO MOWEFR CHOLESTEROL 08/23/19 [History Last Taken 08/27/23] magnesium 250 mg tablet 250 mg PO QHS SUPPLEMENT 08/23/19 [History Last Taken 08/27/23] eyjgavlj-uda-oitps acid 0.4 mg-lycopene 300 mcg-lutein 250 mcg tablet (Centrum Silver) 1 tab PO DAILY SUPPLEMENT 08/23/19 [History Last Taken 08/28/23] carvedilol 25 mg tablet 25 mg PO BID HEART 08/27/19 [History Last Taken 08/28/23] losartan 100 mg tablet 100 mg PO DAILY BLOOD PRESSURE 04/03/21 [History Last Taken 08/28/23] nifedipine 60 mg tablet,extended release 24 hr 60 mg PO DAILY BLOOD PRESSURE 04/03/21 [History Last Taken 08/28/23] torsemide 20 mg tablet 20 mg PO BID FLUID 01/31/22 [History Last Taken 08/28/23] calcium carbonate 600 mg-vitamin D3 5 mcg (200 unit) capsule 1 cap PO DAILY 08/08/23 [History Last Taken 08/28/23] escitalopram oxalate 20 mg tablet 20 mg PO DAILY DEPRESSION 08/28/23 [History Last Taken 08/28/23] zinc acetate 50 mg (zinc) capsule 50 mg PO DAILY SUPPLEMENT 08/28/23 [History Last Taken 08/28/23] Allergy/AdvReac Type Severity Reaction Status Date / Time prednisone Allergy Intermediate anxious Verified 08/28/23 11:44 quinapril Allergy Intermediate cough Verified 08/28/23 11:44 simvastatin [From Zocor] Allergy Intermediate muscle pain Verified 08/28/23 11:44 Family History Father Myocardial infarction, Onset Age: 45 Mother Heart disease Diabetes Surgical History History of back surgery History of hysterectomy History of tonsillectomy and adenoidectomy History of total mastectomy of left breast History of tubal ligation Social History Smoking Status: Never smoker alcohol intake: never substance use type: does not use caffeine: Yes Type: coffee Number of servings: 1 ROS ROS ED ROS Narrative A complete review of systems was performed and is negative except as documented in the history of present illness. Some specific details below. Constitutional: No recent fevers or chills. No generalized malaise. EYE: No discharge, visual complaints, or pain. ENT: No difficulty swallowing. No swelling. No pain. No reflux symptoms except she does get an indigestion feeling but only with exertion. She states she has never had indigestion in her life prior to this. CV: See history of present illness. Respiratory: See history of present illness. She does get very winded with activity. GI: No abdominal pain. No nausea vomiting diarrhea. No blood in stool. : No frequency dysuria or hematuria. Musculoskeletal: No recent trauma. No pains. No swelling. Skin: No rash. Nondiaphoretic. Neuro: No weakness or numbness. Endocrine: No polyuria or polydipsia. EXAM Physical Exam Narrative Exam Narrative: CONSTITUTIONAL: Patient is nontoxic in appearance. The patient looks comfortable. Work of breathing looks normal. HEENT: No notable trauma. Mucous membranes moist. No sinus tenderness. No indication of pain with swallowing. EYES: No conjunctival injection. No proptosis. NECK:No JVD. No stridor. CARDIOVASCULAR: Regular rate. Regular rhythm. No notable murmur. No JVD. RESPIRATORY: No respiratory distress. Breathing is unlabored. No wheezes. No rhonchi. No rales. No pain with a deep breath. No chest wall tenderness. She is not hypoxic and her oxygen saturation is 98% on room air on the monitor. She has had prior left mastectomy GASTROINTESTINAL: Not distended. Bowel sounds are normal. No tenderness. GENITOURINARY: No CVA tenderness. MUSCULOSKELETAL: Atraumatic. No peripheral edema. No cord. No tenderness along the deep venous system. No asymmetry. No distended veins. NEUROLOGICAL: Patient is alert and appropriate. No focal deficit noted. SKIN: No noted rashes. No diaphoresis. PSYCHIATRIC: Patient is calm. Mood is appropriate. Const Vital Signs: 08/28/23 11:44 08/28/23 15:21 Temperature 98.2 F Temperature Source Temporal Pulse Rate 66 Respiratory Rate 14 Blood Pressure 164/79 H Blood Pressure Mean 107 Pulse Ox 98 Oxygen Delivery Method Room Air Room Air Heart Score History: Moderately Suspicious ECG: Normal Age: >/= 65 years Risk Factors: >/= 3 Risk Factors or History of CAD Troponin: </= Normal Limit Score: 5 MDM MDM MDM Narrative Medical decision making narrative: My independent interpretation of the patient's single view chest x-ray shows significant scoliosis but no acute process. This is similar to final reading. Patient CBC is normal other than mild elevation in hemoglobin. Patient's electrolytes show no marked abnormalities. Slight elevations of bicarb and BUN. Patient's troponin is negative at 23. Patient's repeat troponin is negative at 23. I discussed the case with cardiology, Dr. Hernandez. I then discussed case with the hospitalist. This patient has worsening exertional dyspnea with chest heaviness and indigestion that resolves with rest. She has a heart score of 5. She is at high risk for discharge. Lab Data Attestation: I reviewed the patient's lab results. Labs: Laboratory Results - last 24 hr 08/28/23 08/28/23 12:05 14:33 WBC 8.5 RBC 5.05 Hgb 15.4 H Hct 45.4 MCV 89.9 MCH 30.5 MCHC 33.9 RDW Std Deviation 41.5 RDW Coeff of Chastity 12.7 Plt Count 321 MPV 9.4 Immature Gran % (Auto) 0.200 Neut % (Auto) 43.7 L Lymph % (Auto) 39.2 Mckenzie % (Auto) 10.7 H Eos % (Auto) 5.4 H Baso % (Auto) 0.8 Absolute Neuts (auto) 3.7 Absolute Lymphs (auto) 3.33 Nucleated RBC % 0 Sodium 136 Potassium 3.8 Chloride 97 L Carbon Dioxide 33.0 H Anion Gap 6 BUN 25 H Creatinine 0.92 Estim Creat Clear Calc 34.07 Est GFR (MDRD) Af Amer 74 Est GFR (MDRD) Non-Af 61 BUN/Creatinine Ratio 27.0 H Glucose 86 Calcium 9.6 Troponin I High Sens 23 23 Radiography Diagnostic Testing: Clinical Impression(s) from Imaging Studies Chest X-Ray 08/28/23 12:19 IMPRESSION: Hyperinflation. The lungs are clear. Stable examination. Electronically Signed: Huang Davis MD at 12:36 EST , EKG Initial EKG: Comments: My independent interpretation of the patient's EKG is a normal sinus rhythm with overall rate of 66. Borderline first-degree AV block. No ventricular ectopy. No acute ST elevation or depression but the EKG was done when she was asymptomatic. DC interval is 200 ms. QRS duration and QTc are normal. Discharge Plan Triage Chief Complaint: Chest Pain ED Provider: Greg Renae Dx/Rx/DC Orders Clinical Impression: Exertional dyspnea, Chest pain, exertional, History of hypertension Prescriptions: No Action clonazepam 0.5 mg tablet 0.25 mg PO BID PRN (Reason: ANXIETY ) lovastatin 10 mg tablet 10 mg PO MOWEFR clonidine HCl 0.2 mg tablet 0.2 mg PO BID Centrum Silver 0.4-300-250 mg-mcg-mcg tablet 1 tab PO DAILY aspirin [Adult Low Dose Aspirin] 81 mg tablet,delayed release (DR/EC) 81 mg PO QHS magnesium 250 mg tablet 250 mg PO QHS cholecalciferol (vitamin D3) 1,000 unit (25 mcg) tablet 1,000 unit PO DAILY albuterol sulfate 90 mcg/actuation HFA aerosol inhaler 2 puff INHALATION Q6H PRN (Reason: SHORTNESS OF BREATH ) torsemide 20 mg tablet 20 mg PO BID calcium carbonate-vitamin D3 600 mg calcium-200 unit capsule 600 mg-5 mcg (200 unit) capsule 1 cap PO DAILY nifedipine 60 mg tablet extended release 24hr 60 mg PO DAILY escitalopram oxalate 20 mg tablet 20 mg PO DAILY zinc acetate 50 mg (zinc) capsule 50 mg PO DAILY carvedilol 25 mg tablet 25 mg PO BID losartan 100 mg tablet 100 mg PO DAILY Primary Care Provider: Nico Gamboa Referrals: Nico Gamboa, [Primary Care Provider] - Disposition Disposition: Acute Care Hospital [facility]
[2023-08-28 15:05] LABS: Troponin-I HS 23 pg/mL (3.0-54.0)
[2023-08-28 16:25] VITALS: BP 141/75; PULSE 70; RESP 15; O2SAT 69
[2023-08-28 16:55] VITALS: BP 142/70; PULSE 68; RESP 13; O2SAT 93
--- NOTE | 2023-08-28 17:33 | PCM.HP.STD ---
HPI - General General Date of Admission: 08/28/23 HPI Narrative Dania HUNG, is a 88 F who presents to the hospital with accelerating angina. She has been getting worked up as an outpatient by cardiology, she had a stress test which was unremarkable but she had a coronary artery calcium score that was elevated in June the 95th percentile and she was scheduled to have a heart cath in August but she presents to the hospital today because over the last week she has been having increasing chest pain in terms and severity as well as frequency, as well as shortness of breath and nausea/heartburn which she does not normally have. The ED physician obtained an EKG which was nonischemic and initial troponin was 23 and repeat troponin was 23. The case was discussed with cardiology who felt that it would be prudent given the acceleration of her symptoms to admit for possible heart cath in the morning. COUNTS INCLUDE 234 BEDS AT THE [facility] Medical History Anxiety and depression Essential hypertension History of breast cancer History of carotid artery stenosis History of small bowel obstruction Hyperlipidemia JOSIE on CPAP Type 2 diabetes mellitus without complication Home Medications albuterol sulfate 90 mcg/actuation aerosol inhaler 2 puff inhalation Q6H PRN SHORTNESS OF BREATH 08/23/19 [History Last Taken Unknown] aspirin 81 mg tablet,delayed release (Adult Low Dose Aspirin) 81 mg PO QHS HEART HEALTH 08/23/19 [History Last Taken 08/27/23] cholecalciferol (vitamin D3) 25 mcg (1,000 unit) tablet 1,000 unit PO DAILY 08/23/19 [History Last Taken 08/28/23] clonazepam 0.5 mg tablet 0.25 mg PO BID PRN ANXIETY 08/23/19 [History Last Taken 08/27/23] clonidine HCl 0.2 mg tablet 0.2 mg PO BID BLOOD PRESSURE 08/23/19 [History Last Taken 08/28/23] lovastatin 10 mg tablet 10 mg PO MOWEFR CHOLESTEROL 08/23/19 [History Last Taken 08/27/23] magnesium 250 mg tablet 250 mg PO QHS SUPPLEMENT 08/23/19 [History Last Taken 08/27/23] pdnnodkt-wbj-uhakm acid 0.4 mg-lycopene 300 mcg-lutein 250 mcg tablet (Centrum Silver) 1 tab PO DAILY SUPPLEMENT 08/23/19 [History Last Taken 08/28/23] carvedilol 25 mg tablet 25 mg PO BID HEART 08/27/19 [History Last Taken 08/28/23] losartan 100 mg tablet 100 mg PO DAILY BLOOD PRESSURE 04/03/21 [History Last Taken 08/28/23] nifedipine 60 mg tablet,extended release 24 hr 60 mg PO DAILY BLOOD PRESSURE 04/03/21 [History Last Taken 08/28/23] torsemide 20 mg tablet 20 mg PO BID FLUID 01/31/22 [History Last Taken 08/28/23] calcium carbonate 600 mg-vitamin D3 5 mcg (200 unit) capsule 1 cap PO DAILY 08/08/23 [History Last Taken 08/28/23] escitalopram oxalate 20 mg tablet 20 mg PO DAILY DEPRESSION 08/28/23 [History Last Taken 08/28/23] zinc acetate 50 mg (zinc) capsule 50 mg PO DAILY SUPPLEMENT 08/28/23 [History Last Taken 08/28/23] Allergy/AdvReac Type Severity Reaction Status Date / Time prednisone Allergy Intermediate anxious Verified 08/28/23 11:44 quinapril Allergy Intermediate cough Verified 08/28/23 11:44 simvastatin [From Zocor] Allergy Intermediate muscle pain Verified 08/28/23 11:44 Family History Father Myocardial infarction, Onset Age: 45 Mother Heart disease Diabetes Surgical History History of back surgery History of hysterectomy History of tonsillectomy and adenoidectomy History of total mastectomy of left breast History of tubal ligation Social History Smoking Status: Never smoker alcohol intake: never substance use type: does not use caffeine: Yes Type: coffee Number of servings: 1 ROS Constitutional Constitutional: Denies chills, fatigue, fever(s) or malaise Eyes Eyes: Denies blurry vision ENT HEENT: Denies headache(s) or nasal discharge Cardiovascular Cardiovascular: Reports chest pain and dyspnea on exertion; Denies syncope Respiratory/Chest Respiratory/Chest: Denies cough, shortness of breath at rest or shortness of breath with exertion Gastrointestinal Gastrointestinal: Reports dyspepsia and nausea; Denies constipation, diarrhea or vomiting Genitourinary Genitourinary: Denies dysuria Neurologic Neurologic: Denies focal weakness, numbness or tremor(s) Psychiatric Psychiatric: Denies anxiety or depression Vital Signs Vital Signs Vital Signs: 08/28/23 11:44 08/28/23 15:21 08/28/23 16:25 Temperature 98.2 F Temperature Source Temporal Pulse Rate 66 70 Respiratory Rate 14 15 Blood Pressure 164/79 H 141/75 H Blood Pressure Mean 107 97 Pulse Ox 98 69 Oxygen Delivery Method Room Air Room Air Room Air 08/28/23 16:55 Temperature Temperature Source Pulse Rate 68 Respiratory Rate 13 Blood Pressure 142/70 H Blood Pressure Mean 94 Pulse Ox 93 Oxygen Delivery Method Weight Weight: 150 lb 2.157 oz Body Mass Index (BMI) 27.4 Physical Exam Narrative General: Alert, Oriented x3, Cooperative, No apparent distress HEENT: Atraumatic, PERRLA, EOMI, Normocephalic Oral: Moist Mucosa Neck: Supple, No JVD Lungs: Diminished, Normal air movement, No rhonchi, No wheeze, No rales Cardiovascular: Regular rate, Regular Rhythm, Normal S1, Normal S2, No murmurs Abdomen: Soft, Non Tender, Non-Distended, No Hepato-splenomegaly Extremities: No edema, Capillary Refill Less than 3 Seconds Skin: No rashes, No breakdown Musculoskeletal: No Tenderness to Palpation of Joints or Extremities Neurological: Cranial nerves II-XII grossly intact, Motor Exam 5/5 strength throughout, Sensory exam intact to light touch and pain Psych/Mental Status: Normal Affect, Appropriate Results Lab / Micro Data 08/28/23 12:05 08/28/23 12:05 Labs: Laboratory Results - last 24 hr 08/28/23 12:05: WBC 8.5, RBC 5.05, Hgb 15.4 H, Hct 45.4, MCV 89.9, MCH 30.5, MCHC 33.9, RDW Std Deviation 41.5, RDW Coeff of Chastity 12.7, Plt Count 321, MPV 9.4, Immature Gran % (Auto) 0.200, Neut % (Auto) 43.7 L, Lymph % (Auto) 39.2, [place] % (Auto) 10.7 H, Eos % (Auto) 5.4 H, Baso % (Auto) 0.8, Absolute Neuts (auto) 3.7, Absolute Lymphs (auto) 3.33, Nucleated RBC % 0, Sodium 136, Potassium 3.8, Chloride 97 L, Carbon Dioxide 33.0 H, Anion Gap 6, BUN 25 H, Creatinine 0.92, Estim Creat Clear Calc 34.07, Est GFR (MDRD) Af Amer 74, Est GFR (MDRD) Non-Af 61, BUN/Creatinine Ratio 27.0 H, Glucose 86, Calcium 9.6, Troponin I High Sens 23 08/28/23 14:33: Troponin I High Sens 23 Imagaing Radiology Impression Chest X-Ray 08/28/23 12:19 IMPRESSION: Hyperinflation. The lungs are clear. Stable examination. Electronically Signed: Huang Davis MD at 12:36 EST , Assessment & Plan Assessment/Plan (1) Chest pain, exertional: PLAN: Plan 1. Accelerated angina/HTN/HLD ? Her calcium score was 886 in June which puts her in the 97th percentile ? Consult cardiology for possible cath in the morning ? Will repeat troponins ? Continue with telemetry ? Can resume her home blood pressure medications as well as her home aspirin ? Will monitor make adjustments as necessary, her blood pressure currently is stable ? Continue with her statin as well as torsemide ? Echo in December 2022 with an EF of 67% and unclear diastolic dysfunction, and then in February stress test was unremarkable and read as low risk 2. Anxiety/depression ? Stable ? Can resume her home clonazepam and escitalopram DVT: Ambulation 75 minutes was spent on direct patient care, including documentation as well as chart review and collaboration with colleagues Charges/Coding Visit Charges Inpatient E&M: 39781 Init Hosp L3
[2023-08-28 18:19] VITALS: BMI 26.2
[2023-08-28 18:30] VITALS: BP 134/62; PULSE 71; RESP 18; TEMP 36.9; O2SAT 94
[2023-08-28 20:32] LABS: Troponin-I HS 18 pg/mL (3.0-54.0)
[2023-08-28] MEDS: Carvedilol 25 MG Tablet PO (21:34)
[2023-08-28] MEDS: cloNIDine HCl 0.2 MG Tablet PO (21:34)
[2023-08-28] MEDS: Aspirin E.C. 81 MG Tablet PO (21:34)
[2023-08-28] MEDS: Furosemide 40 MG Tablet PO (21:35)
[2023-08-28] MEDS: 0.9% Saline Lock 10 ML Syringe IV (21:37)
[2023-08-28 21:38] VITALS: BP 138/78; PULSE 70; RESP 16; TEMP 37.2; O2SAT 94
[2023-08-29] VITALS (13 sets, daily range): BP systolic 113–146; BP diastolic 56–71; PULSE 56–92; RESP 16–18; TEMP 36.1–36.7; O2SAT 92–98
--- NOTE | 2023-08-29 05:55 | EKG12_ITS ---
Test Reason : AM EKG Blood Pressure : / mmHG Vent. Rate : 063 BPM Atrial Rate : 063 BPM P-R Int : 206 ms QRS Dur : 076 ms QT Int : 454 ms P-R-T Axes : 055 003 041 degrees QTc Int : 464 ms Normal sinus rhythm Nonspecific T wave abnormality Abnormal ECG When compared with ECG of 29-AUG-2023 14:59, MANUAL COMPARISON REQUIRED, DATA IS UNCONFIRMED Confirmed by SHAZIA CORNELIUS, ALENA ([id number]), publications editor RYLIE VELEZ ([id number]) on 09/02/2023 8:45:31 A M Referred By: ANUM Confirmed By:KAYLEEN MCCRAY MD
[2023-08-29] MEDS: cloNIDine HCl 0.2 MG Tablet PO ×2 (06:12→21:10)
[2023-08-29] MEDS: Losartan Potassium 100 MG Tablet PO (06:12)
[2023-08-29] MEDS: NIFEdipine 60 MG Tablet PO (06:13)
[2023-08-29] MEDS: Carvedilol 25 MG Tablet PO ×2 (06:14→21:10)
[2023-08-29 06:33] LABS: Absolute Lymphocyte Count 3.26 X10^3/uL (0.83-4.51); Absolute Neutrophil Count 3.3 X10^3/uL (2.0-7.7); Basophil# 0.08 X10^3/uL; Eosinophil# 0.41 X10^3/uL; Eosinophils% 5.1 % (0-5); Hematocrit 42.3 % (37-47); Hemoglobin 13.9 g/dL (12.0-15.0); Lymphocyte # 3.26 X10^3/ul (0.83-4.51); Lymphocyte % 40.9 % (19-41); Mean Corp Hgb Conc 32.9 g/dL (32-36); Mean Corpuscular Volume 91.4 fL (81-99); Mean Platelet Vol. 9.6 fl (6.2-12.0); Monocyte# 0.87 X10^3/uL; Monocyte% 10.9 % (0-10); NRBC Flagged by Analyzer 0 % (0-5); Neutrophil # 3.33 X10^3/uL (2.7-7.7); Neutrophil % 41.8 % (47-70); Platelet Count 322 K/mm3 (150-450); RBC Distribution Width CV 12.8 % (11.6-14.6); RBC Distribution Width SD 42.9 fl (35.1-43.9); Red Blood Count 4.63 M/mm3 (4.2-5.4)
--- NOTE | 2023-08-29 07:00 | NURSING ---
AM bp meds given early d/t possibility of heart cath this am
[2023-08-29 07:03] LABS: Anion Gap 5 (5-15); BUN 19 mg/dL (7-18); BUN/Creat Ratio 20.9 RATIO (10-20); Calcium,Total 8.9 mg/dL (8.5-10.1); Chloride 100 mmol/L (98-107); Creatinine, Serum 0.91 mg/dL (0.55-1.02); EST Glomerular Filtration Rate 62 mL/min (>60); Est Glom Filt Rate - Afr Amer 75 mL/min (>60); Estimated Creatinine Clearance 34.45 ml/min; Glucose 105 mg/dL (74-106); Potassium 3.6 mmol/L (3.5-5.1); Sodium Level 137 mmol/L (136-145)
--- NOTE | 2023-08-29 10:37 | PCM.PN.HOSP ---
Reason for Visit Reason for Visit: Diagnoses Chest pain, unspecified (08/28/23) Objective Data Objective Data Vital Signs: Vital Signs Temp Pulse Resp BP Pulse Ox O2 Del Method 98 F 66 16 145/66 H 94 Room Air 08/29/23 09:39 08/29/23 09:39 08/29/23 09:39 08/29/23 09:39 08/29/23 09:39 08/29/23 09:44 Oxygen Delivery Method Room Air Weight: 143 lb 11.862 oz Body Mass Index (BMI) 26.2 Intake & Output: Intake and Output for Last 24 Hours 08/27/23 08/28/23 08/29/23 23:59 23:59 23:59 Intake Total 200 / 200 Balance 200 / 200 Lab / Micro Data 08/29/23 05:15 08/29/23 05:15 Labs: Laboratory Results - last 24 hr 08/28/23 12:05: WBC 8.5, RBC 5.05, Hgb 15.4 H, Hct 45.4, MCV 89.9, MCH 30.5, MCHC 33.9, RDW Std Deviation 41.5, RDW Coeff of Chastity 12.7, Plt Count 321, MPV 9.4, Immature Gran % (Auto) 0.200, Neut % (Auto) 43.7 L, Lymph % (Auto) 39.2, [place] % (Auto) 10.7 H, Eos % (Auto) 5.4 H, Baso % (Auto) 0.8, Absolute Neuts (auto) 3.7, Absolute Lymphs (auto) 3.33, Nucleated RBC % 0, Sodium 136, Potassium 3.8, Chloride 97 L, Carbon Dioxide 33.0 H, Anion Gap 6, BUN 25 H, Creatinine 0.92, Estim Creat Clear Calc 34.07, Est GFR (MDRD) Af Amer 74, Est GFR (MDRD) Non-Af 61, BUN/Creatinine Ratio 27.0 H, Glucose 86, Calcium 9.6, Troponin I High Sens 08/28/23 14:33: Troponin I High Sens 08/28/23 19:30: Troponin I High Sens 18 08/29/23 05:15: WBC 8.0, RBC 4.63, Hgb 13.9, Hct 42.3, MCV 91.4, MCH 30.0, MCHC 32.9, RDW Std Deviation 42.9, RDW Coeff of Chastity 12.8, Plt Count 322, MPV 9.6, Immature Gran % (Auto) 0.300, Neut % (Auto) 41.8 L, Lymph % (Auto) 40.9, [place] % (Auto) 10.9 H, Eos % (Auto) 5.1 H, Baso % (Auto) 1.0, Absolute Neuts (auto) 3.3, Absolute Lymphs (auto) 3.26, Nucleated RBC % 0, Sodium 137, Potassium 3.6, Chloride 100, Carbon Dioxide 32.0, Anion Gap 5, BUN 19 H, Creatinine 0.91, Estim Creat Clear Calc 34.45, Est GFR (MDRD) Af Amer 75, Est GFR (MDRD) Non-Af 62, BUN/Creatinine Ratio 20.9 H, Glucose 105, Calcium 8.9 Radiography Diagnostic Testing: Radiology Impression Chest X-Ray 08/28/23 12:19 IMPRESSION: Hyperinflation. The lungs are clear. Stable examination. Electronically Signed: Huang Davis MD at 12:36 EST , Physical Exam Narrative Seen and examined. Patient is stated she has exertional chest pain/pressure which gets better with rest. She also has shortness of breath. Currently chest pain-free. Her previous stress test was negative. Physical exam: General: Alert, Oriented x3, Cooperative HEENT: Atraumatic, PERRLA, EOMI, Normocephalic Oral: No Gingival or Mucosal Lesions/ Ulcerations Neck: Supple, No JVD, Negative Carotid Bruits Lungs: Air entry diminished in bilateral lung bases. No crepitation/rhonchi Cardiovascular: Regular rate, Regular Rhythm, Normal S1, Normal S2, systolic murmur. Abdomen: Bowel Sounds Present, Soft, Non Tender, Non-Distended : No renal angle tenderness. No suprapubic tenderness. Extremities: No edema, Capillary Refill Less than 3 Seconds Skin: No rashes, No breakdown Musculoskeletal: No Tenderness to Palpation of Joints or Extremities. ROM lower extremities restricted due to degenerative arthritis. Spine: Significant thoracic scoliosis. Upper thoracic surgical scar. Neurological: Cranial nerves II-XII grossly intact, DTR 2+/4. No acute focal neurological deficit. Psych/Mental Status: Normal Affect, Appropriate. Assessment & Plan Assessment/Plan (1) Chest pain, exertional: (2) Coronary artery disease: PLAN: Plan This 58-year-old female is being admitted in PCU from ED, referred by Dr. Valentin's office for exertional dyspnea, chest heaviness ongoing for several months to ER exacerbated by exertion relieved by rest. Over the last week it has gotten worse. CT coronary artery calcium score high. 1. Accelerated angina/HTN/HLD ? Her calcium score was 886 in June which puts her in the 97th percentile. Serial troponins negative. EKG not ischemic in nature. Patient was taken to [facility]. Shows 90% calcified proximal and mid RCA which required PCI/angioplasty. 70% mid LAD and 80% distal mid left circumflex. Recommended aspirin indefinitely Plavix for at least 12 months. If continued symptomatic will need staged PCI to LAD. ? Echo in December 2022 with an EF of 67% and unclear diastolic dysfunction, and then in February stress test was unremarkable and read as low risk 2. Anxiety/depression ? Can resume her home clonazepam and escitalopram DVT: Ambulation Charges/Coding Visit Charges Inpatient E&M: 79026 Subs Hosp L2
--- NOTE | 2023-08-29 10:56 | CON.PCM.CA_ITS ---
Assessment & Plan Assessment/Plan (1) Angina pectoris: PLAN: Patient has been having accelerated angina pectoris. Coronary angiography with possible revascularization was offered to the patient. Risks benefits and alternatives explained. She understand these and wishes to proceed. (2) Coronary artery disease: PLAN: See #1 above. Aspirin, beta-blockers, statins. (3) Essential hypertension: PLAN: Beta-blockers, angiotensin receptor blockers, diuretics. Also on nifedipine. (4) Hyperlipidemia: PLAN: Lovastatin. (5) JOSIE on CPAP: PLAN: As per sleep medicine. (6) Carotid artery disease: PLAN: Follows with vascular surgery. HPI Consult Data Date of Consult: 08/29/23 HPI Narrative Reason for Consultation: Chest pain HPI Narrative: This lady has past medical history significant for hypertension, carotid artery disease, dyslipidemia and obstructive sleep apnea. For the past some time, she has been complaining of exertional dyspnea and chest discomfort. She was evaluated outpatient. She had coronary calcium scoring done. She was noted to have calcium score in the 90th percentile. Patient was scheduled to undergo coronary angiography next week for her angina pectoris. However he presented to the hospital with worsening chest discomfort with exertion. [facility] Medical History Anxiety and depression Essential hypertension History of breast cancer History of carotid artery stenosis History of small bowel obstruction Hyperlipidemia JOSIE on CPAP Type 2 diabetes mellitus without complication Home Medications albuterol sulfate 90 mcg/actuation aerosol inhaler 2 puff inhalation Q6H PRN SHORTNESS OF BREATH 08/23/19 [History Last Taken Unknown] aspirin 81 mg tablet,delayed release (Adult Low Dose Aspirin) 81 mg PO QHS HEART HEALTH 08/23/19 [History Last Taken 08/27/23] cholecalciferol (vitamin D3) 25 mcg (1,000 unit) tablet 1,000 unit PO DAILY 08/23/19 [History Last Taken 08/28/23] clonazepam 0.5 mg tablet 0.25 mg PO BID PRN ANXIETY 08/23/19 [History Last Taken 08/27/23] clonidine HCl 0.2 mg tablet 0.2 mg PO BID BLOOD PRESSURE 08/23/19 [History Last Taken 08/28/23] lovastatin 10 mg tablet 10 mg PO MOWEFR CHOLESTEROL 08/23/19 [History Last Taken 08/27/23] magnesium 250 mg tablet 250 mg PO QHS SUPPLEMENT 08/23/19 [History Last Taken 08/27/23] kxwvintw-tev-ltihc acid 0.4 mg-lycopene 300 mcg-lutein 250 mcg tablet (Centrum Silver) 1 tab PO DAILY SUPPLEMENT 08/23/19 [History Last Taken 08/28/23] carvedilol 25 mg tablet 25 mg PO BID HEART 08/27/19 [History Last Taken 08/28/23] losartan 100 mg tablet 100 mg PO DAILY BLOOD PRESSURE 04/03/21 [History Last Eleazar en 08/28/23] nifedipine 60 mg tablet,extended release 24 hr 60 mg PO DAILY BLOOD PRESSURE 04/03/21 [History Last Taken 08/28/23] torsemide 20 mg tablet 20 mg PO BID FLUID 01/31/22 [History Last Taken 08/28/23] calcium carbonate 600 mg-vitamin D3 5 mcg (200 unit) capsule 1 cap PO DAILY 08/08/23 [History Last Taken 08/28/23] escitalopram oxalate 20 mg tablet 20 mg PO DAILY DEPRESSION 08/28/23 [History Last Taken 08/28/23] zinc acetate 50 mg (zinc) capsule 50 mg PO DAILY SUPPLEMENT 08/28/23 [History Last Taken 08/28/23] Allergy/AdvReac Type Severity Reaction Status Date / Time prednisone Allergy Intermediate anxious Verified 08/28/23 11:44 quinapril Allergy Intermediate cough Verified 08/28/23 11:44 simvastatin [From Zocor] Allergy Intermediate muscle pain Verified 08/28/23 11:44 Family History Father Myocardial infarction, Onset Age: 45 Mother Heart disease Diabetes Surgical History History of back surgery History of hysterectomy History of tonsillectomy and adenoidectomy History of total mastectomy of left breast History of tubal ligation Social History Smoking Status: Never smoker alcohol intake: never substance use type: does not use caffeine: Yes Type: coffee Number of servings: 1 Physical Exam Narrative Comfortable. No apparent distress. Heart sounds 1 and 2 are normal. Chest clear to auscultation bilaterally. Alert oriented x 3. No ankle edema. Risk Stratification Risk Stratification Applicable: No Objective Data Vital Signs: Vital Signs Temp Pulse Resp BP Pulse Ox O2 Del Method 98 F 66 16 145/66 H 94 Room Air 08/29/23 09:39 08/29/23 09:39 08/29/23 09:39 08/29/23 09:39 08/29/23 09:39 08/29/23 09:44 Oxygen Delivery Method Room Air Weight: 143 lb 11.862 oz Body Mass Index (BMI) 26.2 Intake & Output: Intake and Output for Last 24 Hours 08/27/23 08/28/23 08/29/23 23:59 23:59 23:59 Intake Total 200 / 200 Balance 200 / 200 Lab / Micro Data 08/29/23 05:15 08/29/23 05:15 Labs: Laboratory Results - last 24 hr 08/28/23 12:05: WBC 8.5, RBC 5.05, Hgb 15.4 H, Hct 45.4, MCV 89.9, MCH 30.5, MCHC 33.9, RDW Std Deviation 41.5, RDW Coeff of Chastity 12.7, Plt Count 321, MPV 9.4 , Immature Gran % (Auto) 0.200, Neut % (Auto) 43.7 L, Lymph % (Auto) 39.2, [place] % (Auto) 10.7 H, Eos % (Auto) 5.4 H, Baso % (Auto) 0.8, Absolute Neuts (auto) 3.7, Absolute Lymphs (auto) 3.33, Nucleated RBC % 0, Sodium 136, Potassium 3.8, Chloride 97 L, Carbon Dioxide 33.0 H, Anion Gap 6, BUN 25 H, Creatinine 0.92, Estim Creat Clear Calc 34.07, Est GFR (MDRD) Af Amer 74, Est GFR (MDRD) Non-Af 61, BUN/Creatinine Ratio 27.0 H, Glucose 86, Calcium 9.6, Troponin I High Sens 08/28/23 14:33: Troponin I High Sens 08/28/23 19:30: Troponin I High Sens 18 08/29/23 05:15: WBC 8.0, RBC 4.63, Hgb 13.9, Hct 42.3, MCV 91.4, MCH 30.0, MCHC 32.9, RDW Std Deviation 42.9, RDW Coeff of Chastity 12.8, Plt Count 322, MPV 9.6, Immature Gran % (Auto) 0.300, Neut % (Auto) 41.8 L, Lymph % (Auto) 40.9, [place] % (Auto) 10.9 H, Eos % (Auto) 5.1 H, Baso % (Auto) 1.0, Absolute Neuts (auto) 3.3, Absolute Lymphs (auto) 3.26, Nucleated RBC % 0, Sodium 137, Potassium 3.6, Chloride 100, Carbon Dioxide 32.0, Anion Gap 5, BUN 19 H, Creatinine 0.91, Estim Creat Clear Calc 34.45, Est GFR (MDRD) Af Amer 75, Est GFR (MDRD) Non-Af 62, BUN/Creatinine Ratio 20.9 H, Glucose 105, Calcium 8.9 Cardiology Labs/Tests 08/28/23 12:05: WBC 8.5, RBC 5.05, Hgb 15.4 H, Hct 45.4, MCV 89.9, MCH 30.5, MCHC 33.9, Plt Count 321, MPV 9.4, Immature Gran % (Auto) 0.200, Neut % (Auto) 43.7 L, Lymph % (Auto) 39.2, [place] % (Auto) 10.7 H, Eos % (Auto) 5.4 H, Baso % (Auto) 0.8, Absolute Neuts (auto) 3.7, Nucleated RBC % 0, Sodium 136, Potassium 3.8, Chloride 97 L, Carbon Dioxide 33.0 H, Anion Gap 6, BUN 25 H, Creatinine 0.92, Est GFR (MDRD) Af Amer 74, Est GFR (MDRD) Non-Af 61, BUN/Creatinine Ratio 27.0 H, Glucose 86, Calcium 9.6 08/29/23 05:15: WBC 8.0, RBC 4.63, Hgb 13.9, Hct 42.3, MCV 91.4, MCH 30.0, MCHC 32.9, Plt Count 322, MPV 9.6, Immature Gran % (Auto) 0.300, Neut % (Auto) 41.8 L , Lymph % (Auto) 40.9, [place] % (Auto) 10.9 H, Eos % (Auto) 5.1 H, Baso % (Auto) 1.0, Absolute Neuts (auto) 3.3, Nucleated RBC % 0, Sodium 137, Potassium 3.6, Chloride 100, Carbon Dioxide 32.0, Anion Gap 5, BUN 19 H, Creatinine 0.91, Est GFR (MDRD) Af Amer 75, Est GFR (MDRD) Non-Af 62, BUN/Creatinine Ratio 20.9 H, Glucose 105, Calcium 8.9 Rhythm: EKG: ECHO: Stress Test: Cardiac Cath: PCI: CT Surgery: Holter monitor: EPS: PPM: CXR: Chest CT Scan: Radiography Diagnostic Testing: Radiology Impression Chest X-Ray 08/28/23 12:19 IMPRESSION: Hyperinflation. The lungs are clear. Stable examination. Electronically Signed: Huang Davis MD at 12:36 EST ,
--- NOTE | 2023-08-29 14:25 | CL.I_ITS ---
Patient Name: RAFAT HUNG Study Date: 08/29/2023 Performing: Dede Hernandez MD Ht: 62 inches 157.48 cm : 1935 Wt: 143.9 lbs 65.2 kg Age: 88 Gender: female BSA: 1.66 PROCEDURE(S) PERFORMED DC02-(90748)LHC/COR IC12-(10887/C9600)LIONEL W/WO PTCA, SINGLE CORONARY ARTERY CLINICAL PROFILE AND CO-MORBIDITIES Indications: Worsening Angina, Suspected CAD Heart Failure: None Angina Classification Anginal Classification w/in 2 Weeks: CCS III CAD Presentations: Unstable angina. CONCLUSIONS 90% calcified Prox and Mid RCA 70% Mid LAD 80% distal Mid LCX post-dilated using 3.0 mm balloon) RECOMMENDATIONS ASA Indefinitley Plavix for at least 12 months If continues to be symptomatic then staged PCI to LAD DESCRIPTION OF PROCEDURE The patient arrived to the procedure lab. The risks and benefits of the procedure as well as a full description of our services here and lack of surgical backup were fully explained to the patient and/or their significant other prior to the catheterization. The Timeout was completed, verifying the correct patient and procedure. The patient's procedural site was prepped and draped in the usual fashion. Local anesthetic was given subcutaneously to right radial region with Lidocaine 2%. Using a modified Seldinger technique, arterial access was obtained via the right radial artery, a 6Fr sheath was inserted.. Right Coronary Artery selective angiography was then performed in multiple views using a 5 Fr. 4.0 [place] catheter. Left Coronary Artery selective angiography was performed in multiple views using a 5 Fr. 4.0 [place] catheterThe images were reviewed and options discussed. A decision was then made to proceed with an Intervention, IVUS or other adjunct procedure. JR 4 Guide catheter was inserted and engaged into the RCA. Runthrough Guide wire was advanced to the RCA. sc euphora 1.5 x 20 Balloon catheter was advanced across lesion in the right coronary, proximal. PTCA balloon inflated at 14 atms for 10 secs. PTCA balloon inflated at 14 atms for 12 secs. PTCA balloon inflated at 14 atms for 18 secs. PTCA balloon inflated at 10 atms for 8 secs. Angiogram performed post balloon dilatation. emerge 2.00 x 20 Balloon catheter was advanced across lesion in the right coronary, proximal. PTCA balloon inflated at 8 atms for 11 secs. PTCA balloon inflated at 8 atms for 20 secs. PTCA balloon inflated at 6 atms for 6 secs. Angiogram performed post balloon dilatation. Angiogram performed post balloon dilatation. 2.5 x 12 nc emerge Balloon catheter was advanced across lesion in the right coronary, proximal. PTCA balloon inflated at 12 atms for 10 secs. PTCA balloon inflated at 14 atms for 16 secs. PTCA balloon inflated at 14 atms for 18 secs. PTCA balloon inflated at 12 atms for 11 secs. aubree 2.5 x 38 Drug Eluting stent was advanced across the lesion in the right coronary, proximal. Drug Eluting stent was removed intact, failed to cross lesion Aubree [place] 2.5x22 Drug Eluting stent was inserted. Drug Eluting stent was removed intact, failed to cross lesion Choice Extra Support Guide wire was inserted as a sarah wire Orsiro 2.25x22 Drug Eluting stent was inserted. Drug Eluting stent was removed intact, failed to cross lesion NC Emerge 2.5x20 Balloon catheter was inserted. PTCA balloon inflated at 13 atms for 16 secs. PTCA balloon inflated at 16 atms for 16 secs. PTCA balloon inflated at 18 atms for 10 secs. Angiogram performed post balloon dilatation. Aubree [place] 2.5x22 Drug Eluting stent was inserted. Drug Eluting stent was removed intact, failed to cross lesion Orsiro 2.25x22 Drug Eluting stent was inserted. Angiogram performed post stent deployment. Orsiro 2.5x26 Drug Eluting stent was inserted. Angiogram performed post stent deployment. NC Emerge 3.0x12 Balloon catheter was inserted. Angiogram performed post balloon dilatation. The arterial sheath was pulled and a TR Band was applied for hemostasis w/ 10ml air CORONARY ANGIOGRAPHY DOMINANCE: Right Dominant LEFT MAIN: Angiographically normal LEFT ANTERIOR DESCENDING ARTERY: LAD: Calcified 70% Mid lesion in LAD RAMUS: Luminal Irregularities 20% Proximal lesion in Ramus RIGHT CORONARY ARTERY: RCA: Calcified 50% Ostial lesion in RCA Calcified Tubular 90% Proximal lesion in RCA Tubular 30% Distal lesion in RCA INTERVENTION INFORMATION LESION SITE: RCA (Proximal) Lesion Complexity: High/C, lesion length: 46 mm, culprit lesion: Yes, In-stent restenosis: No Pre Stenosis: 90 % Pre intervention JOSE flow: 3 PROCEDURE: Drug Eluting Stent with pre and post dilatation Post Stenosis: 0 % Post intervention JOSE flow: 3 Lesion Devices: Terumo .014 300cm Runthrough extra floppy straight Cordis 6 Fr JR4 100cm Guide Catheter Medtronic SC EUPHORA RX 1.5x20 BALLOON [employer] Shockwave IVL 2.5x12 [employer] Shockwave IVL cable sleeve García Sci NC EMERGE MR 2.50x12 BALLOON Biot[employer] Orsiro [place] MR LIONEL 2.25x22 Biotronik Orsiro [place] MR LIONEL 2.5x26 García Sci NC EMERGE MR 3.00x12 BALLOON COMPLICATIONS No Complications PROCEDURE MEDICATIONS Versed 1 mg IV Fentanyl 50 mcg IV Oxygen: 2 L/min via nasal cannula Baby Aspirin (81mg) 1 Tabs PO 08/29/2023 13:33:27 Brilinta 180 mg PO @ 08/29/2023 13:33:39 Heparin given IA 08/29/2023 12:02:02 Heparin 5000 unit(s) IV 08/29/2023 12:11:35 Heparin 2000 unit(s) IV 08/29/2023 12:55:22 Heparin 2000 unit(s) IV 08/29/2023 13:47:11 Nitro 200 mcg IC 08/29/2023 12:29:16 Nitro 200 mcg IC 08/29/2023 12:29:16 Nitro 200 mcg IC 08/29/2023 13:04:33 Verapamil 2.5mg, Ntg 200mcgs, 2000 units of Heparin given IA 08/29/2023 12:02:02 IV Bolus: .9 NaCl 250 ml total 08/29/2023 12:05:50 SUMMARY OF HEMODYNAMIC DATA Time AIR REST ECG 11:46:16 AO 98/58 (75) SA 12:05:41 Signed By Dede Hernandez MD On 08/29/2023 14:24:49 Dede Hernandez MD
--- NOTE | 2023-08-29 14:30 | CRPHASE1_ITS ---
Patient Communication Patient Information Former Patient:: Phase I and Phase II PHII Cardiac Rehab Discussed with Patient:: Yes Guide to Cardiac Rehab Given to Patient:: Yes Cardiac Rehab Facility Choice List Given to Patient:: Yes Communication to Cardiac Rehab Lead Database Developer:: Dede Hernandez Refer Phase II Cardiac Rehab:: Yes Sessions:: 36 sessions - 3 days/wk, 12 weeks Post Discharge Choice Letter Given to Patient:: Yes Cardiac Rehabilitation Info Program Information Cardiac Rehabilitation Program Information: Cardiac Rehab The cardiac rehab team at [facility] consists of highly skilled exercise physiologists, nurses, respiratory therapists and physicians working together with you. Our purpose is to help you have a full recovery and achieve the goals you set for yourself. Over the years many of our patients have returned to activities they assumed they would never do again! We can help restore your confidence and motivation to make lifestyle changes that can have a significant impact on your health and quality of life! We can help answer questions and concerns you may have about exercise, lifestyle, medications, diet, stress and anxiety which are common following a hospitalization. WE monitor ECG and vital signs during exercise and discuss your progress with you and report to your physician(s). Cardiac Rehab is proven to help reduce readmissions, improve functional capacity and lower recurrence of problems with your heart. Our Cardiac Rehab program is Certified by the [place] [employer] Pulmonary [employer] (AACVPR) and Accredited by the [employer] through our [facility]. You can contact us at . We invite you to call us with your questions or to get started in our program. If you have other questions or concerns be sure to ask your physician/provider during your follow-up visit. WE look forward to seeing you!
--- NOTE | 2023-08-29 14:32 | CRPH1.INSTRU ---
General Education Discussed with Patient CAD and cardiac anatomy and function:: Patient communicates acknowledgment Sign/Symptoms of CT:: Patient communicates acknowledgment Antiplatelet therapy: Patient communicates acknowledgment Proper use of NTG-SL: Patient communicates acknowledgment Emergency procedures and activation of EMS: Patient communicates acknowledgment Compliance of all prescribed medications: Patient communicates acknowledgment Smoking Risk Factors Patient Nicotine/Smoking Risk Factors Are:: Non-smoker Recommendations Recommendations Include:: Second-hand smoke recommendation Response Code Nicotine/Smoking Response Code:: Patient communicates acknowledgment Dyslipidemia Recommendations Recommendations Include:: Lipid profile not available Response Code Dyslipidemia Response Code:: Patient communicates acknowledgment Overweight/Obesity Risk Factors Patient Overweight/Obesity Risk Factors Are:: Overweight = 26-29 Recommendations Recommendations Include:: Weight loss of 5-10%, Reduced calorie diet and Exercise 5-7 times/week Hypertension Recommendations Recommendations Include:: Maintain BP <130/85 Response Code Hypertension:: Patient communicates acknowledgment Heart Disease Recommendations Recommendations Include:: Educated family members of their risk Response Code Heart Disease Response Code:: Patient communicates acknowledgment Diabetes Risk Factors Patient Diabetes Risk Factors Are:: No documented hx of diabetes Sedentary Risk Factors Patient Sedentary Risk Factors Are:: Lack of regular exercise Recommendations Recommendations Include:: Monitored Outpatient Cardiac Rehab Stress Recommendations Recommendations Include:: Identification of stressors, and assessment of coping skills Response Code Stress Response Code:: Patient communicates acknowledgment
[2023-08-29] MEDS: Escitalopram Oxalate 20 MG Tablet PO (14:58)
[2023-08-29] MEDS: 0.9% Normal Saline (1000mL) 1,000 ML 150 ML IV (15:09)
--- NOTE | 2023-08-29 17:12 | CASEMGMT ---
Met with patient and her to complete TARMMELL form. TRAMMELL form explained to both who voiced understanding. Patient requested that her sign form. Original form placed in pt?s chart and copy provided to?patient. Bridget Hoang, Discharge Planning Asst
[2023-08-29] MEDS: Clopidogrel Bisulfate 300 MG Tablet PO (20:00)
[2023-08-29] MEDS: Furosemide 40 MG Tablet PO (21:10)
[2023-08-29] MEDS: Aspirin E.C. 81 MG Tablet PO (21:10)
[2023-08-29] MEDS: clonazePAM 0.5 MG Tablet 0.25 MG PO (21:11)
[2023-08-29] MEDS: Famotidine 20 MG Tablet PO (23:09)
[2023-08-30 02:18] VITALS: BP 141/61; PULSE 62; RESP 18; TEMP 36.7; O2SAT 96
[2023-08-30 06:08] VITALS: BP 146/70; PULSE 64; RESP 17; TEMP 36.9; O2SAT 97
[2023-08-30 08:39] VITALS: BP 140/81; PULSE 66; RESP 14; TEMP 37.1; O2SAT 95
[2023-08-30] MEDS: cloNIDine HCl 0.2 MG Tablet PO (08:44)
[2023-08-30] MEDS: Furosemide 40 MG Tablet PO (08:44)
[2023-08-30] MEDS: Escitalopram Oxalate 20 MG Tablet PO (08:44)
[2023-08-30] MEDS: Carvedilol 25 MG Tablet PO (08:45)
[2023-08-30] MEDS: Losartan Potassium 100 MG Tablet PO (08:45)
[2023-08-30] MEDS: NIFEdipine 60 MG Tablet PO (08:46)
[2023-08-30] MEDS: Clopidogrel Bisulfate 75 MG Tablet PO (08:47)
[2023-08-30 09:14] VITALS: O2SAT 94
--- NOTE | 2023-08-30 09:54 | DCINST_ITS ---
Discharge Instructions Diet Discharge Diet: Low fat / Low cholesterol and 2000 mg Sodium Diet Activity Discharge Activity: Return to Normal Activity Weight Bearing Status: Weight bearing as tolerated Dressing / Incision Call your doctor if you observe: Fever of 101 or Higher, Coldness, Increased Pain, Numbness or Tingling, Change in Color, Inability to urinate, Inability to have a bowel movement, Using more than 1 pad per hour, Shortness of breath, Dizziness, Fainting spells, Swelling in the ankles, Chest pain, Prolonged hiccupping, Increased palpitations (irregular heartbeat) and Calf discomfort Follow Up Care When: IN 2 WEEKS Test Results: Test results from this visit will be discussed in further detail at your follow- up appointment, if applicable. Discharge Plan Admission Admit Date/Time: 08/28/23 17:23 Primary Reason for Your Visit: Unstable angina/progression of CAD Attending Provider: Yandel Ghotra Primary Care Provider: Nico Gamboa Consulting Providers: Dede Hernandez; Edin Pineda Discharge Orders/Prescriptions Prescriptions: New clopidogrel 75 mg Tablet 75 mg PO DAILY 30 Days Qty: 30 3RF rosuvastatin 10 mg tablet 10 mg PO QHS Qty: 30 2RF Continued clonazepam 0.5 mg tablet 0.25 mg PO BID PRN (Reason: ANXIETY ) clonidine HCl 0.2 mg tablet 0.2 mg PO BID Centrum Silver 0.4-300-250 mg-mcg-mcg tablet 1 tab PO DAILY aspirin [Adult Low Dose Aspirin] 81 mg tablet,delayed release (DR/EC) 81 mg PO QHS magnesium 250 mg tablet 250 mg PO QHS cholecalciferol (vitamin D3) 1,000 unit (25 mcg) tablet 1,000 unit PO DAILY albuterol sulfate 90 mcg/actuation HFA aerosol inhaler 2 puff INHALATION Q6H PRN (Reason: SHORTNESS OF BREATH ) torsemide 20 mg tablet 20 mg PO BID calcium carbonate-vitamin D3 600 mg calcium-200 unit capsule 600 mg-5 mcg (200 unit) capsule 1 cap PO DAILY nifedipine 60 mg tablet extended release 24hr 60 mg PO DAILY escitalopram oxalate 20 mg tablet 20 mg PO DAILY zinc acetate 50 mg (zinc) capsule 50 mg PO DAILY carvedilol 25 mg tablet 25 mg PO BID losartan 100 mg tablet 100 mg PO DAILY Discontinued lovastatin 10 mg tablet 10 mg PO MOWEFR Referrals / Follow Up: Dede Hernandez MD [Med Staff - Active Staff] - Within 1 Month Nico Gamoba DO [Primary Care Provider] - Disposition Disposition (needs filled in before D/C Order can be placed): Home, Self Care
[2023-08-30 09:59] VITALS: BP 140/67; PULSE 74; RESP 14; TEMP 37; O2SAT 99
--- NOTE | 2023-08-30 10:00 | EKG12_ITS ---
Test Reason : PCI Blood Pressure : / mmHG Vent. Rate : 057 BPM Atrial Rate : 057 BPM P-R Int : 214 ms QRS Dur : 076 ms QT Int : 400 ms P-R-T Axes : 065 -05 062 degrees QTc Int : 389 ms Sinus bradycardia with 1st degree A-V block Nonspecific T wave abnormality Abnormal ECG When compared with ECG of 29-AUG-2023 05:33, MANUAL COMPARISON REQUIRED, DATA IS UNCONFIRMED Confirmed by SHAZIA CORNELIUS, ALENA ([id number]), offline editor RYLIE VELEZ ([id number]) on 09/02/2023 8:45:53 A M Referred By: ANUM Confirmed By:KAYLEEN MCCRAY MD
--- NOTE | 2023-08-30 10:00 | PCM.DC.SUM ---
Providers Date of Admission: 08/28/23 Date of Discharge: 08/30/23 Primary Care Physician: Dr. Nico Gamboa, Consultations 08/28/23 18:18 Consult: Cardiology Routine Consulting Provider: Dede Hernandez Reason for Consult: For cath tomorrow if possible EMERGENT Consult: No MD Notified: Yes Date Notified: 08/28/23 Time Notified: 17:31 Method of Notification: ED Physician Initiated Reason For Visit: CHEST PAIN Diagnosis Discharge Diagnosis (1) Chest pain, exertional: Status: Acute Code(s): R07.9 - Chest pain, unspecified (2) Coronary artery disease: Status: Acute Code(s): I25.10 - Atherosclerotic heart disease of saxman coronary artery without angina pectoris Plan This 58-year-old female is being admitted in PCU from ED, referred by Dr. Valentin's office for exertional dyspnea, chest heaviness ongoing for several months to ER exacerbated by exertion relieved by rest. Over the last week it has gotten worse. CT coronary artery calcium score high. 1. Accelerated angina/HTN/HLD ? Her calcium score was 886 in June which puts her in the 97th percentile. Serial troponins negative. EKG not ischemic in nature. Patient was taken to [facility]. Shows 90% calcified proximal and mid RCA which required PCI/angioplasty. 70% mid LAD and 80% distal mid left circumflex. Recommended aspirin indefinitely Plavix for at least 12 months. If continued symptomatic will need staged PCI to LAD. ? Echo in December 2022 with an EF of 67% and unclear diastolic dysfunction, and then in February stress test was unremarkable and read as low risk 08/31: Patient had cardiac cath yesterday which shows 90% calcified proximal and mid RCA. 70% mid LAD and 80% distal mid left circumflex. 100 PCI and stenting of RCA. Aspirin indefinitely. Plavix for at least 12 months. If continues to be symptomatic then he staged PCI to LAD. Patient has aspirin. Prescription given for Plavix. Patient already on maximal dose of hold for heart less than 50 or systolic blood pressure less than 100 mmHg. And losartan and heart rate and blood pressure in optimal range. Fasting lipid profile shows high triglyceride 282, LDL 89, HDL low, VLDL high. Patient has myalgia problem and on lovastatin. Novasen discontinued at discharge on water-soluble rosuvastatin low-dose 10 mg daily at bedtime. Prescription sent to the patient's preferred pharmacy. 2. Anxiety/depression: Resume her home clonazepam and escitalopram DVT: Ambulation Discharge medication reconciliation done. Discharge follow-up instructions completed. Discharge process discussed with the patient and all questions were answered to patient's satisfaction. Follow with PCP in 1 to 2 weeks Total time spent, exact 35 minutes on discharge meds reconciliation, examination, coordination of care with nurses and ancillary staff, review of imaging and blood test and discussion with the patient on follow-up instructions. Laboratory Results 08/30/23 09:10: WBC 8.8, RBC 4.30, Hgb 13.0, Hct 38.6, MCV 89.8, MCH 30.2, MCHC 33.7, RDW Std Deviation 42.1, RDW Coeff of Chastity 12.9, Plt Count 295, MPV 9.5, Sodium 137, Potassium 3.7, Chloride 104, Carbon Dioxide 27.0, Anion Gap 6, BUN 15, Creatinine 0.85, Estim Creat Clear Calc 36.88, Est GFR (MDRD) Af Amer 81, Est GFR (MDRD) Non-Af 67, BUN/Creatinine Ratio 17.6, Glucose 128 H, Calcium 8.8, Total Bilirubin 0.60, AST 28, ALT 35, Alkaline Phosphatase 83, Total Protein 7.0, Albumin 3.4, Globulin 3.6, Albumin/Globulin Ratio 0.9, Triglycerides 282 H, Cholesterol 179, LDL Cholesterol 89, VLDL Cholesterol 56 H, HDL Cholesterol 34 L Medications at Discharge Home Medications albuterol sulfate 90 mcg/actuation aerosol inhaler 2 puff inhalation Q6H PRN SHORTNESS OF BREATH 08/23/19 aspirin 81 mg tablet,delayed release (Adult Low Dose Aspirin) 81 mg PO QHS HEART HEALTH 08/23/19 cholecalciferol (vitamin D3) 25 mcg (1,000 unit) tablet 1,000 unit PO DAILY 08/23/19 clonazepam 0.5 mg tablet 0.25 mg PO BID PRN ANXIETY 08/23/19 clonidine HCl 0.2 mg tablet 0.2 mg PO BID BLOOD PRESSURE 08/23/19 magnesium 250 mg tablet 250 mg PO QHS SUPPLEMENT 08/23/19 zscxeylb-ykq-nyxpl acid 0.4 mg-lycopene 300 mcg-lutein 250 mcg tablet (Centrum Silver) 1 tab PO DAILY SUPPLEMENT 08/23/19 carvedilol 25 mg tablet 25 mg PO BID HEART 08/27/19 losartan 100 mg tablet 100 mg PO DAILY BLOOD PRESSURE 04/03/21 nifedipine 60 mg tablet,extended release 24 hr 60 mg PO DAILY BLOOD PRESSURE 04/03/21 torsemide 20 mg tablet 20 mg PO BID FLUID 01/31/22 calcium carbonate 600 mg-vitamin D3 5 mcg (200 unit) capsule 1 cap PO DAILY 08/08/23 escitalopram oxalate 20 mg tablet 20 mg PO DAILY DEPRESSION 08/28/23 zinc acetate 50 mg (zinc) capsule 50 mg PO DAILY SUPPLEMENT 08/28/23 clopidogrel 75 mg tablet 75 mg PO DAILY 30 days #30 tabs 08/30/23 rosuvastatin 10 mg tablet 10 mg PO QHS #30 tabs 08/30/23 Physical Exam Narrative Seen and examined. Yesterday the patient did not had chest pain or shortness of breath. Feels good. Her previous stress test was negative. Physical exam: General: Alert, Oriented x3, Cooperative HEENT: Atraumatic, PERRLA, EOMI, Normocephalic Oral: No Gingival or Mucosal Lesions/ Ulcerations Neck: Supple, No JVD, Negative Carotid Bruits Lungs: Air entry diminished in bilateral lung bases. No crepitation/rhonchi Cardiovascular: Regular rate, Regular Rhythm, Normal S1, Normal S2, systolic murmur. Abdomen: Bowel Sounds Present, Soft, Non Tender, Non-Distended : No renal angle tenderness. No suprapubic tenderness. Extremities: No edema, Capillary Refill Less than 3 Seconds Skin: No rashes, No breakdown Musculoskeletal: No Tenderness to Palpation of Joints or Extremities. ROM lower extremities restricted due to degenerative arthritis. Spine: Significant thoracic scoliosis. Upper thoracic surgical scar. Neurological: Cranial nerves II-XII grossly intact, DTR 2+/4. No acute focal neurological deficit. Psych/Mental Status: Normal Affect, Appropriate. Weight / BMI Weight Weight: 143 lb 11.862 oz Body Mass Index (BMI) 26.2 ABG / Lab / Microbiology Data 08/30/23 09:10 08/30/23 09:10 D/C Instructions Discharge Diet: Low fat / Low cholesterol and 2000 mg Sodium Diet Weight Bearing Status: Weight bearing as tolerated Call your doctor if you observe: Fever of 101 or Higher, Coldness, Increased Pain, Numbness or Tingling, Change in Color, Inability to urinate, Inability to have a bowel movement, Using more than 1 pad per hour, Shortness of breath, Dizziness, Fainting spells, Swelling in the ankles, Chest pain, Prolonged hiccupping, Increased palpitations (irregular heartbeat) and Calf discomfort When: IN 2 WEEKS Meaningful Use Info Meaningful Use Diagnoses (Choose all that apply): None applicable Discharge Plan Admission Admit Date/Time: 08/28/23 17:23 Primary Reason for Your Visit: Unstable angina/progression of CAD Attending Provider: Yandel Ghotra Primary Care Provider: Nico Gamboa Consulting Providers: Dede Hernandez; Edin Pineda Discharge Orders/Prescriptions Prescriptions: New clopidogrel 75 mg Tablet 75 mg PO DAILY 30 Days Qty: 30 3RF rosuvastatin 10 mg tablet 10 mg PO QHS Qty: 30 2RF Continued clonazepam 0.5 mg tablet 0.25 mg PO BID PRN (Reason: ANXIETY ) clonidine HCl 0.2 mg tablet 0.2 mg PO BID Centrum Silver 0.4-300-250 mg-mcg-mcg tablet 1 tab PO DAILY aspirin [Adult Low Dose Aspirin] 81 mg tablet,delayed release (DR/EC) 81 mg PO QHS magnesium 250 mg tablet 250 mg PO QHS cholecalciferol (vitamin D3) 1,000 unit (25 mcg) tablet 1,000 unit PO DAILY albuterol sulfate 90 mcg/actuation HFA aerosol inhaler 2 puff INHALATION Q6H PRN (Reason: SHORTNESS OF BREATH ) torsemide 20 mg tablet 20 mg PO BID calcium carbonate-vitamin D3 600 mg calcium-200 unit capsule 600 mg-5 mcg (200 unit) capsule 1 cap PO DAILY nifedipine 60 mg tablet extended release 24hr 60 mg PO DAILY escitalopram oxalate 20 mg tablet 20 mg PO DAILY zinc acetate 50 mg (zinc) capsule 50 mg PO DAILY carvedilol 25 mg tablet 25 mg PO BID losartan 100 mg tablet 100 mg PO DAILY Discontinued lovastatin 10 mg tablet 10 mg PO MOWEFR Referrals / Follow Up: Dede Hernandez MD [Med Staff - Active Staff] - Within 1 Month Nico Gamboa DO [Primary Care Provider] - Disposition Disposition (needs filled in before D/C Order can be placed): Home, Self Care Charges/Coding Visit Charges Inpatient E&M: 12051 Disch Hosp >30min
[2023-08-30 10:14] LABS: Hematocrit 38.6 % (37-47); Mean Corp Hgb Conc 33.7 g/dL (32-36); Mean Corpuscular Hgb 30.2 pg (27.0-32.0); Mean Corpuscular Volume 89.8 fL (81-99); Mean Platelet Vol. 9.5 fl (6.2-12.0); Platelet Count 295 K/mm3 (150-450); RBC Distribution Width CV 12.9 % (11.6-14.6); RBC Distribution Width SD 42.1 fl (35.1-43.9); White Blood Count 8.8 K/mm3 (4.4-11.0)
[2023-08-30 10:40] LABS: ALB/GLOB Ratio 0.9 RATIO (0.9-2.4); AST(SGOT) 28 U/L (15-37); Alanine Aminotransfer ALT/SGPT 35 U/L (13-56); Albumin, Serum 3.4 g/dL (3.2-5.0); Alkaline Phosphatase 83 U/L (45-117); Anion Gap 6 (5-15); BUN 15 mg/dL (7-18); BUN/Creat Ratio 17.6 RATIO (10-20); Calcium,Total 8.8 mg/dL (8.5-10.1); Chloride 104 mmol/L (98-107); Creatinine, Serum 0.85 mg/dL (0.55-1.02); EST Glomerular Filtration Rate 67 mL/min (>60); Est Glom Filt Rate - Afr Amer 81 mL/min (>60); Estimated Creatinine Clearance 36.88 ml/min; Globulin 3.6 g/dL (2.2-4.2); Glucose 128 mg/dL (74-106); Potassium 3.7 mmol/L (3.5-5.1); Sodium Level 137 mmol/L (136-145)
--- NOTE | 2023-08-30 11:32 | PCM.PN.CARD ---
Subjective Subjective Ambulated this morning. Reports complete resolution of her dyspnea on exertion and angina. Objective Data Vital Signs: Vital Signs Temp Pulse Resp BP Pulse Ox O2 Del Method O2 Flow Rate 98.6 F 74 14 140/67 H 99 Room Air 96 08/30/23 09:59 08/30/23 09:59 08/30/23 09:59 08/30/23 09:59 08/30/23 09:59 08/30/23 09:59 08/29/23 15:25 Oxygen Flow Rate (L/min) 96 Oxygen Delivery Method Room Air Weight: 143 lb 11.862 oz Body Mass Index (BMI) 26.2 Intake & Output: Intake and Output for Last 24 Hours 08/28/23 08/29/23 08/30/23 23:59 23:59 23:59 Intake Total 1430 / 1430 Balance 1430 / 1430 Lab / Micro Data 08/30/23 09:10 08/30/23 09:10 Labs: Laboratory Results - last 24 hr 08/30/23 09:10: WBC 8.8, RBC 4.30, Hgb 13.0, Hct 38.6, MCV 89.8, MCH 30.2, MCHC 33.7, RDW Std Deviation 42.1, RDW Coeff of Chastity 12.9, Plt Count 295, MPV 9.5, Sodium 137, Potassium 3.7, Chloride 104, Carbon Dioxide 27.0, Anion Gap 6, BUN 15, Creatinine 0.85, Estim Creat Clear Calc 36.88, Est GFR (MDRD) Af Amer 81, Est GFR (MDRD) Non-Af 67, BUN/Creatinine Ratio 17.6, Glucose 128 H, Calcium 8.8, Total Bilirubin 0.60, AST 28, ALT 35, Alkaline Phosphatase 83, Total Protein 7.0, Albumin 3.4, Globulin 3.6, Albumin/Globulin Ratio 0.9 Cardiology Labs/Tests 08/30/23 09:10: WBC 8.8, RBC 4.30, Hgb 13.0, Hct 38.6, MCV 89.8, MCH 30.2, MCHC 33.7, Plt Count 295, MPV 9.5, Sodium 137, Potassium 3.7, Chloride 104, Carbon Dioxide 27.0, Anion Gap 6, BUN 15, Creatinine 0.85, Est GFR (MDRD) Af Amer 81, Est GFR (MDRD) Non-Af 67, BUN/Creatinine Ratio 17.6, Glucose 128 H, Calcium 8.8, Total Bilirubin 0.60 Rhythm: EKG: ECHO: Stress Test: Cardiac Cath: PCI: CT Surgery: Holter monitor: EPS: PPM: CXR: Chest CT Scan: Physical Exam Narrative Comfortable. No apparent distress. Heart sounds 1 and 2 are normal. Chest clear to auscultation bilaterally. Alert oriented x 3. No ankle edema. Assessment & Plan Assessment/Plan (1) Angina pectoris: PLAN: Status post percutaneous intervention with drug-eluting stents to the proximal and mid RCA. Reports complete resolution of angina pectoris. Continue aspirin. Clopidogrel. Beta-blockers. Calcium channel blockers. (2) Coronary artery disease: PLAN: See #1 above. Residual lesion in the mid LAD and in the distal mid left circumflex. If asymptomatic, then continue medical management. If symptoms recur, then will consider percutaneous intervention to the LAD. (3) Essential hypertension: PLAN: Beta-blockers, angiotensin receptor blockers, diuretics. Also on nifedipine. (4) Hyperlipidemia: PLAN: Lovastatin. (5) JOSIE on CPAP: PLAN: As per sleep medicine. (6) Carotid artery disease: PLAN: Follows with vascular surgery. PLAN: Plan May discharge home. Follow-up as outpatient.
[2023-08-30 11:37] LABS: Cholesterol 179 mg/dL (200); High Density Lipoprotein 34 mg/dL; Triglycerides 282 mg/dL; Very Low Density Lipoprotein 56 mg/dL (5-40)
--- NOTE | 2023-08-30 12:18 | CASEMGMT ---
MIAN LEVI updated by pt nurse that pt and has questions regarding TRAMMELL form. MIAN LEVI into pt room and answered questions to pt and satisfaction.
[2023-09-01 07:37] LABS: ACT Activated Clotting Time 320 sec (74-137)
[2023-09-01 07:39] LABS: ACT Activated Clotting Time 434 sec (74-137)
[2023-09-01 07:41] LABS: ACT Activated Clotting Time 277 sec (74-137)
== END 2023-08-30 09:59 | disposition home or self-care (01) ==
LOC: ED 16:26 → PCU 17:19
PROVIDERS: Internal Medicine Cardiovascular Disease; Admitting Provider Family Medicine; Emergency Provider Emergency Medicine; PCP Student in an Organized Health Care Education/Training Program; Visit Provider Internal Medicine
DX: I25.110 Atherosclerotic heart disease of native coronary artery with unstable angina pectoris (principal); E11.9 Type 2 diabetes mellitus without complications; Z79.82 Long term (current) use of aspirin; I10 Essential (primary) hypertension; M41.9 Scoliosis, unspecified; E78.00 Pure hypercholesterolemia, unspecified; Z79.899 Other long term (current) drug therapy; Z82.49 Family history of ischemic heart disease and other diseases of the circulatory system; G47.33 Obstructive sleep apnea (adult) (pediatric); F32.A Depression, unspecified; F41.9 Anxiety disorder, unspecified
CPT/HCPCS: 36415; 71045; 80048; 80053; 80061; 84484; 85025; 85027; 85347; 92928; 93005; 93454; 96360; 96361; 99152; 99153; 99221; 99285; C1761; C1769; C1874; J7030; J7040; Q9967; A4216; C1725; C1887; C1894; C9600; G0378

== ENCOUNTER → 2023-09-03 | Outpatient (CLI) | payer MEDICARE, SELFPAY ==
--- NOTE | 2023-09-03 14:23 | BI_ITS ---
MAMMOGRAPHY - UNILATERAL DIAGNOSTIC: RIGHT BREAST REASON FOR EXAM: Female, 88 years old. Prior left mastectomy. PERTINENT HISTORY: Personal history of breast cancer. TECHNIQUE: Digital unilateral breast rachel (3D mammographic acquisition) in the CC and MLO projections. 2-D mediolateral oblique (MLO) and craniocaudad (CC) views of both breasts were obtained. CAD: Full Field Digital Mammography with Computer Added Detection was performed. COMPARISON: Comparison is made with prior examination dated August 05, 2021. FINDINGS: Breast Composition: The breasts are heterogeneously dense, which may obscure small masses. There are no dominant masses or suspicious calcifications. No other significant abnormalities are identified. There has been no significant change since the prior study. BI/DIAG MAMM W/CAD, UNILAT IMPRESSION: Stable unilateral diagnostic mammogram. One year follow-up mammogram recommended. (A) ASSESSMENT CATEGORY: BIRADS Category 1: Negative. A letter regarding these results will be sent to the patient by the facility within 30 days. Approximately 10% of breast cancers are not detected by mammography. A normal mammogram should not delay biopsy of a clinically suspicious abnormality. Electronically Signed: Huagn Davis MD at 12:29 EST ,
--- NOTE | 2023-09-03 14:23 | US_ITS ---
STUDY: SUPERFICIAL ULTRASOUND - LEFT CHEST WALL REASON FOR EXAM: Female, 88 years old. MASS UPPER L BREAST/CHEST -- s/p mastectomy TECHNIQUE: A superficial ultrasound was performed with real-time and static chase-scale imaging. COMPARISON: None. FINDINGS: Multiple longitudinal and transverse ultrasound images of the left chest wall failed to demonstrate a discrete solid or cystic mass or lymphadenopathy to correspond to the patient''s palpable abnormality. US/Chest IMPRESSION: Normal chest wall. Electronically Signed: Adolph Yarbrough MD at 22:51 EST ,
== END | disposition home or self-care (01) ==
PROVIDERS: PCP Student in an Organized Health Care Education/Training Program
DX: Z85.3 Personal history of malignant neoplasm of breast (principal); N63.22 Unspecified lump in the left breast, upper inner quadrant
CPT/HCPCS: 76604; 77061; 77065; G0279

== ENCOUNTER → 2024-03-01 | Outpatient (CLI) | payer MEDICARE, SELFPAY | END | disposition home or self-care (01) | LOC: PSN 08:42 | PROVIDERS: PCP Student in an Organized Health Care Education/Training Program; Referring Provider Nurse Practitioner Gerontology; Visit Provider Nurse Practitioner Gerontology | DX: I49.9 Cardiac arrhythmia, unspecified (principal) | CPT/HCPCS: 93225; 93226 ==

== ENCOUNTER → 2024-03-05 | Outpatient (CLI) | payer MEDICARE, SELFPAY ==
--- NOTE | 2024-03-05 09:20 | RAD_ITS ---
INDICATION: pre-operative EXAMINATION/TECHNIQUE: X-RAY - XR Chest 2 Views COMPARISON: August 28, 2023. FINDINGS: LINES/DEVICES: None. LUNGS: No consolidation, edema or effusion. No pneumothorax. MEDIASTINUM AND CARDIOVASCULAR STRUCTURES: Cardiac silhouette not enlarged. Aortic atherosclerosis. BONES AND SOFT TISSUES: Severe scoliosis. Left mastectomy surgical change. RAD/Chest PA and Lateral IMPRESSION: No radiographic evidence of acute cardiopulmonary disease. Electronically Signed: Sotero Gupta MD at 21:39 EDT ,
[2024-03-05 09:24] LABS: Absolute Lymphocyte Count 2.75 X10^3/uL (0.83-4.51); Absolute Neutrophil Count 4.7 X10^3/uL (2.0-7.7); Basophil# 0.05 X10^3/uL; Basophil% 0.6 % (0-1); Eosinophil# 0.34 X10^3/uL; Eosinophils% 3.8 % (0-5); Hematocrit 40.3 % (37-47); Hemoglobin 13.5 g/dL (12.0-15.0); Lymphocyte # 2.75 X10^3/ul (0.83-4.51); Lymphocyte % 31.1 % (19-41); Mean Corp Hgb Conc 33.5 g/dL (32-36); Mean Corpuscular Hgb 29.9 pg (27.0-32.0); Mean Corpuscular Volume 89.4 fL (81-99); Mean Platelet Vol. 9.1 fl (6.2-12.0); Monocyte# 0.94 X10^3/uL; Monocyte% 10.6 % (0-10); NRBC Flagged by Analyzer 0 % (0-5); Neutrophil # 4.74 X10^3/uL (2.7-7.7); Neutrophil % 53.7 % (47-70); Platelet Count 302 K/mm3 (150-450); RBC Distribution Width CV 13.4 % (11.6-14.6); Red Blood Count 4.51 M/mm3 (4.2-5.4); White Blood Count 8.8 K/mm3 (4.4-11.0)
[2024-03-05 10:19] LABS: Anion Gap 6 (5-15); BUN 18 mg/dL (7-18); BUN/Creat Ratio 18.9 RATIO (10-20); Calcium,Total 9.6 mg/dL (8.5-10.1); Chloride 98 mmol/L (98-107); Creatinine, Serum 0.95 mg/dL (0.55-1.02); EST Glomerular Filtration Rate 59 mL/min (>60); Est Glom Filt Rate - Afr Amer 71 mL/min (>60); Glucose 125 mg/dL (74-106); Sodium Level 136 mmol/L (136-145)
== END | disposition home or self-care (01) ==
PROVIDERS: PCP Student in an Organized Health Care Education/Training Program; Referring Provider Nurse Practitioner Family; Visit Provider Nurse Practitioner Family
DX: Z01.810 Encounter for preprocedural cardiovascular examination (principal); R06.00 Dyspnea, unspecified; I10 Essential (primary) hypertension; E78.2 Mixed hyperlipidemia
CPT/HCPCS: 36415; 71046; 80048; 85025

== ENCOUNTER 2024-03-18 11:35 | Observation (INO) | payer MEDICARE, SELFPAY ==
[2024-03-17 08:25] VITALS: BMI 26.6
[2024-03-18] VITALS (8 sets, daily range): BP systolic 129–142; BP diastolic 60–69; PULSE 65–80; RESP 18; TEMP 36.6–36.8; O2SAT 92–96; BMI 26.9
--- NOTE | 2024-03-18 11:31 | CL.I_ITS ---
Patient Name: RAFAT HUNG Study Date: 03/18/2024 Performing: Dede Hernandez MD Ht: 62 inches 157.48 cm : 1935 Wt: 145.99 lbs 66.22 kg Age: 88 Gender: female BSA: 1.67 PROCEDURE(S) PERFORMED DC02-(90672)LHC/COR IC12-(37646/C9600)LIONEL W/WO PTCA, SINGLE CORONARY ARTERY IC12-(12895/C9600)LIONEL W/WO PTCA, SINGLE CORONARY ARTERY CLINICAL PROFILE AND CO-MORBIDITIES Indications: Worsening Angina Heart Failure: None Angina Classification Anginal Classification w/in 2 Weeks: Anginal Equivalent Dyspnea CAD Presentations: Stable angina. CONCLUSIONS Stent to Mid RCA 30-40% 80% prox LAD 80-90% distal LCX Successful LIONEL distal LCX using Opal [place] 2.25x18 mm, post-dilated using 2.5 mm balloon RECOMMENDATIONS ASA Indefinitley Plavix for at least 12 months DESCRIPTION OF PROCEDURE The patient arrived to the procedure lab. The risks and benefits of the procedure as well as a full description of our services here and lack of surgical backup were fully explained to the patient and/or their significant other prior to the catheterization. The Timeout was completed, verifying the correct patient and procedure. The patient's procedural site was prepped and draped in the usual fashion. Local anesthetic was given subcutaneously to right radial region with Lidocaine 2%. Using a modified Seldinger technique, arterial access was obtained via the right radial artery, a 6Fr sheath was inserted.. Left Coronary Artery selective angiography was performed in multiple views using a 5 Fr. 4.0 Tyro catheter. Right Coronary Artery selective angiography was then performed in multiple views using a 5 Fr. 4.0 Tyro catheterThe images were reviewed and options discussed. A decision was then made to proceed with an Intervention, IVUS or other adjunct procedure. XB 3 Guide catheter was inserted and engaged into the LCA. Runthrough Guide wire was advanced to the LAD. 2.5x15 NC Emerge Balloon catheter was inserted. Balloon catheter was advanced across lesion in the LAD, proximal. PTCA balloon inflated at 14 atms for 14 secs. Angiogram performed post balloon dilatation. PTCA balloon inflated at 4 atms for 13 secs. shockwave PTCA balloon inflated at 6 atms for 15 secs. shockwave PTCA balloon inflated at 4 atms for 13 secs. shockwave PTCA balloon inflated at 4 atms for 14 secs. shockwave Angiogram performed post balloon dilatation. 3x22 [place] Drug Eluting stent was inserted. Drug Eluting stent was removed intact, failed to cross lesion Choice XS Guide wire was inserted as a sarah wire 3x22 [place] Drug Eluting stent was reinserted Drug Eluting stent was advanced across the lesion in the LAD, proximal. Angiogram performed post stent deployment. 3x12 NC Euphora Balloon catheter was inserted. PTCA balloon inflated at 12 atms for 3 secs. Balloon catheter was inserted post stent. 3x12 NC Euphora Balloon catheter was reinserted Balloon catheter was inserted post stent. Angiogram performed post balloon dilatation. 3.25x8 NC Emerge Balloon catheter was inserted. Balloon catheter was inserted post stent. Angiogram performed post balloon dilatation. Angiogram performed post balloon dilatation. Runthrough Guide wire was repositioned to the Circumflex 2.25 x 18 [place] Drug Eluting stent was advanced across the lesion in the circumflex, distal. 2.5x 15 NC Emerge Balloon catheter was reinserted PTCA balloon inflated at 14 atms for 4 secs. PTCA balloon inflated at 14 atms for 10 secs. Angiogram performed post balloon dilatation. The arterial sheath was pulled and a TR Band was applied for hemostasis. 9cc of air CORONARY ANGIOGRAPHY LEFT MAIN: No significant disease noted RAMUS: Tubular 50% Proximal lesion in Ramus RIGHT CORONARY ARTERY: RCA: In-Stent Restenosis 40% Mid lesion in RCA, STENT to 40% INTERVENTION INFORMATION LESION SITE: LAD (Proximal) Lesion Complexity: High/C, lesion length: 21 mm Pre Stenosis: 80 % Pre intervention JOSE flow: 3 PROCEDURE: Drug Eluting Stent with pre and post dilatation, Shockwave Lithotripsy Post Stenosis: 0 % Post intervention JOSE flow: 3 Lesion Devices: Cordis 6 Fr XB3.0 100cm Guide Catheter Terumo .014 180cm Runthrough Extra Floppy straight ShockWaNext Gen [employer] Shockwave IVL 2.5x12 García Sci NC EMERGE MR 2.50x15 BALLOON Medtronic 3.0 x 22 OPAL FRONTIER LIONEL García Sci .014 182cm Choice Xtra Support wire Medtronic NC EUPHORA RX 3.0x12 BALLOON García Sci NC EMERGE MR 3.25x08 BALLOON LESION SITE: Circumflex (Distal) Lesion Complexity: Non-High/Non-C, lesion length: 16 mm Pre Stenosis: 90 % Pre intervention JOSE flow: 3 PROCEDURE: Drug Eluting Stent with post dilatation Post Stenosis: 0 % Post intervention JOSE flow: 3 Lesion Devices: García Sci NC EMERGE MR 2.50x15 BALLOON Medtronic 2.25 x 18 OPAL FRONTIER LIONEL COMPLICATIONS No Complications PROCEDURE MEDICATIONS Fentanyl 50 mcg IV Versed 1 mg IV Oxygen: 2 L/min via nasal cannula Heparin given IA 03/18/2024 09:59:08 Heparin 5000 unit(s) IV 03/18/2024 10:06:38 Nitro 100 mcg IC 03/18/2024 10:38:48 Plavix 300 mg PO 03/18/2024 11:08:01 Verapamil 2.5mg, Ntg 200mcgs, 2000 units of Heparin given IA 03/18/2024 09:59:08 SUMMARY OF HEMODYNAMIC DATA Time AIR REST ECG 07:35:46 AO 126/59 (86) SA 10:04:08 AO 145/69 (100) 10:51:18 Signed By Dede Hernandez MD On 03/18/2024 11:30:18 Dede Hernandez MD
--- NOTE | 2024-03-18 11:40 | PCM.DC ---
Discharge Instructions Diet Discharge Diet: Low fat / Low cholesterol Activity Discharge Activity: Return to Normal Activity Dressing / Incision Call your doctor if your incision/area has: Continuous Slow Oozing, Sudden Increased Bleeding, Increased Pain/ Swelling, Increased Redness, Foul Smelling Discharge and Swelling at the incision site Follow Up Care Please Follow Up With: Dede Hernandez MD When: 2-4 weeks Test Results: Test results from this visit will be discussed in further detail at your follow-up appointment, if applicable. Discharge Plan Admission Attending Provider: Dede Hernandez Primary Care Provider: Nico Gamboa Instructions Print Language: Bermudian Discharge Orders/Prescriptions Prescriptions: No Action clonazepam 0.5 mg tablet 0.25 mg PO BID PRN (Reason: ANXIETY ) Centrum Silver 0.4-300-250 mg-mcg-mcg tablet 1 tab PO DAILY aspirin [Adult Low Dose Aspirin] 81 mg tablet,delayed release (DR/EC) 81 mg PO QHS cholecalciferol (vitamin D3) 1,000 unit (25 mcg) tablet 1,000 unit PO DAILY albuterol sulfate 90 mcg/actuation HFA aerosol inhaler 2 puff INHALATION Q6H PRN (Reason: SHORTNESS OF BREATH ) calcium carbonate-vitamin D3 600 mg-5 mcg (200 unit) capsule 1 cap PO DAILY magnesium 250 mg tablet 250 mg PO Q OTHER DAY nifedipine 60 mg tablet extended release 24hr 60 mg PO DAILY clopidogrel 75 mg tablet 75 mg PO DAILY Qty: 90 3RF rosuvastatin 10 mg tablet 10 mg PO QHS Qty: 90 3RF citalopram 20 mg tablet 20 mg PO QDAY furosemide 20 mg tablet 20 mg PO QDAY PRN (Reason: edema) clonidine HCl 0.2 mg tablet 0.2 mg PO zinc acetate 50 mg (zinc) capsule 50 mg PO DAILY carvedilol 25 mg tablet 25 mg PO BID losartan 100 mg tablet 100 mg PO DAILY torsemide 20 mg tablet 20 mg PO DAILY Disposition Discharge Orders: Discharge Patient (Routine); Ordered 03/19/24 Ordered By: Dr. Dede Hernandez
--- NOTE | 2024-03-18 11:42 | PCM.DC ---
Discharge Instructions Diet Discharge Diet: Low fat / Low cholesterol Dressing / Incision Call your doctor if your incision/area has: Continuous Slow Oozing, Sudden Increased Bleeding, Increased Pain/ Swelling, Increased Redness, Foul Smelling Discharge and Swelling at the incision site Follow Up Care Please Follow Up With: Dede Hernandez MD Test Results: Test results from this visit will be discussed in further detail at your follow-up appointment, if applicable. Discharge Plan Admission Attending Provider: Dede Hernandez Primary Care Provider: Nico Gamboa Instructions Print Language: Luxembourgish Discharge Orders/Prescriptions Prescriptions: No Action clonazepam 0.5 mg tablet 0.25 mg PO BID PRN (Reason: ANXIETY ) Centrum Silver 0.4-300-250 mg-mcg-mcg tablet 1 tab PO DAILY aspirin [Adult Low Dose Aspirin] 81 mg tablet,delayed release (DR/EC) 81 mg PO QHS cholecalciferol (vitamin D3) 1,000 unit (25 mcg) tablet 1,000 unit PO DAILY albuterol sulfate 90 mcg/actuation HFA aerosol inhaler 2 puff INHALATION Q6H PRN (Reason: SHORTNESS OF BREATH ) calcium carbonate-vitamin D3 600 mg-5 mcg (200 unit) capsule 1 cap PO DAILY magnesium 250 mg tablet 250 mg PO Q OTHER DAY nifedipine 60 mg tablet extended release 24hr 60 mg PO DAILY clopidogrel 75 mg tablet 75 mg PO DAILY Qty: 90 3RF rosuvastatin 10 mg tablet 10 mg PO QHS Qty: 90 3RF citalopram 20 mg tablet 20 mg PO QDAY furosemide 20 mg tablet 20 mg PO QDAY PRN (Reason: edema) clonidine HCl 0.2 mg tablet 0.2 mg PO zinc acetate 50 mg (zinc) capsule 50 mg PO DAILY carvedilol 25 mg tablet 25 mg PO BID losartan 100 mg tablet 100 mg PO DAILY torsemide 20 mg tablet 20 mg PO DAILY Referrals / Follow Up: Nico Gamboa DO [Primary Care Provider] - Disposition Discharge Orders: Discharge Patient (Routine); Ordered 03/19/24 Ordered By: Dr. Dede Hernandez
--- NOTE | 2024-03-18 11:44 | CRPHASE1 ---
Patient Communication Patient Information Former Patient:: Phase I and Phase II PHII Cardiac Rehab Discussed with Patient:: Yes Guide to Cardiac Rehab Given to Patient:: Yes Cardiac Rehab Facility Choice List Given to Patient:: Yes Communication to Cardiac Rehab Choice Program [facility] CR PHII:: Communication Given to CR Refer Phase II Cardiac Rehab:: Yes Sessions:: 36 sessions - 3 days/wk, 12 weeks Cardiac Rehabilitation Info Program Information Cardiac Rehabilitation Program Information: Cardiac Rehab The cardiac rehab team at [facility] consists of highly skilled exercise physiologists, nurses, respiratory therapists and physicians working together with you. Our purpose is to help you have a full recovery and achieve the goals you set for yourself. Over the years many of our patients have returned to activities they assumed they would never do again! We can help restore your confidence and motivation to make lifestyle changes that can have a significant impact on your health and quality of life! We can help answer questions and concerns you may have about exercise, lifestyle, medications, diet, stress and anxiety which are common following a hospitalization. WE monitor ECG and vital signs during exercise and discuss your progress with you and report to your physician(s). Cardiac Rehab is proven to help reduce readmissions, improve functional capacity and lower recurrence of problems with your heart. Our Cardiac Rehab program is Certified by the [place] [employer]monary [employer] (AACVPR) and Accredited by the [place] [employer] through our [facility]. You can contact us at . We invite you to call us with your questions or to get started in our program. If you have other questions or concerns be sure to ask your physician/provider during your follow-up visit. WE look forward to seeing you!
--- NOTE | 2024-03-18 11:45 | CRPH1.INSTRU ---
General Education Discussed with Patient CAD and cardiac anatomy and function:: Patient communicates acknowledgment Explanation of diagnoses and procedures:: Patient communicates acknowledgment Sign/Symptoms of KS:: Patient communicates acknowledgment Antiplatelet therapy: Patient communicates acknowledgment Proper use of NTG-SL: Patient communicates acknowledgment Emergency procedures and activation of EMS: Patient communicates acknowledgment Compliance of all prescribed medications: Patient communicates acknowledgment Smoking Risk Factors Patient Nicotine/Smoking Risk Factors Are:: Non-smoker Recommendations Recommendations Include:: Second-hand smoke recommendation Response Code Nicotine/Smoking Response Code:: Patient communicates acknowledgment Dyslipidemia Recommendations Recommendations Include:: Lipid profile not available Response Code Dyslipidemia Response Code:: Patient communicates acknowledgment Overweight/Obesity Risk Factors Patient Overweight/Obesity Risk Factors Are:: BMI Normal [18-25 & < 65 years old] Response Code Overweight/Obesity:: Patient communicates acknowledgment Hypertension Recommendations Recommendations Include:: Maintain BP <130/85 Response Code Hypertension:: Patient communicates acknowledgment Heart Disease Risk Factors Patient Heart Disease Risk Factors Are:: Previous cardiac event Recommendations Recommendations Include:: Educated family members of their risk Response Code Heart Disease Response Code:: Patient communicates acknowledgment Diabetes Risk Factors Patient Diabetes Risk Factors Are:: No documented hx of diabetes Response Code Diabetes:: Patient communicates acknowledgment Metabolic Syndrome Recommendations Recommendations Include:: Does not meet criteria Sedentary Recommendations Recommendations Include:: Benefits of regular exercise and Monitored Outpatient Cardiac Rehab Response Code Sedentary Response Code:: Patient communicates acknowledgment Stress Recommendations Recommendations Include:: Identification of stressors, and assessment of coping skills and Stress management techniques Response Code Stress Response Code:: Patient communicates acknowledgment
[2024-03-18] MEDS: 0.9% Normal Saline (1000mL) 1,000 ML 150 ML IV (13:32)
[2024-03-18] MEDS: 0.9% Saline Lock 10 ML Syringe IV (13:32)
[2024-03-18] MEDS: clonazePAM 0.5 MG Tablet 0.25 MG PO (20:03)
[2024-03-18] MEDS: Carvedilol 25 MG Tablet PO (22:34)
[2024-03-18] MEDS: Atorvastatin Calcium 20 MG Tablet PO (22:34)
[2024-03-18] MEDS: Aspirin E.C. 81 MG Tablet PO (22:34)
[2024-03-18] MEDS: cloNIDine HCl 0.1 MG Tablet PO (22:34)
[2024-03-19 02:50] VITALS: BP 131/56; PULSE 70; RESP 18; TEMP 36.3; O2SAT 95
[2024-03-19 05:32] LABS: Hematocrit 36.2 % (37-47); Hemoglobin 11.8 g/dL (12.0-15.0); Mean Corp Hgb Conc 32.6 g/dL (32-36); Mean Corpuscular Hgb 29.8 pg (27.0-32.0); Mean Corpuscular Volume 91.4 fL (81-99); Mean Platelet Vol. 9.5 fl (6.2-12.0); Platelet Count 266 K/mm3 (150-450); RBC Distribution Width CV 13.4 % (11.6-14.6); RBC Distribution Width SD 45.8 fl (35.1-43.9); Red Blood Count 3.96 M/mm3 (4.2-5.4); White Blood Count 9.3 K/mm3 (4.4-11.0)
[2024-03-19 06:02] LABS: ALB/GLOB Ratio 1.1 RATIO (0.9-2.4); AST(SGOT) 38 U/L (15-37); Alanine Aminotransfer ALT/SGPT 44 U/L (13-56); Albumin, Serum 3.5 g/dL (3.2-5.0); Alkaline Phosphatase 71 U/L (45-117); Anion Gap 6 (5-15); BUN 15 mg/dL (7-18); BUN/Creat Ratio 20.1 RATIO (10-20); Calcium,Total 8.7 mg/dL (8.5-10.1); Chloride 106 mmol/L (98-107); Creatinine, Serum 0.75 mg/dL (0.55-1.02); EST Glomerular Filtration Rate 78 mL/min (>60); Est Glom Filt Rate - Afr Amer 94 mL/min (>60); Estimated Creatinine Clearance 44.37 ml/min; Globulin 3.2 g/dL (2.2-4.2); Glucose 98 mg/dL (74-106); Potassium 3.8 mmol/L (3.5-5.1); Protein, Total 6.7 g/dL (6.4-8.2); Sodium Level 140 mmol/L (136-145)
[2024-03-19 08:44] VITALS: BP 163/92; PULSE 75; RESP 18; TEMP 36.8; O2SAT 95
[2024-03-19] MEDS: cloNIDine HCl 0.1 MG Tablet PO (08:45)
[2024-03-19] MEDS: Multivitamins,Ther W-Minerals Tablet 1 TABLET PO (08:45)
[2024-03-19] MEDS: Citalopram 20 MG Tablet PO (08:45)
[2024-03-19] MEDS: NIFEdipine 60 MG Tablet PO (08:45)
[2024-03-19] MEDS: Magnesium Chloride 64 MG Delay Rel.Tablet 128 MG PO (08:45)
[2024-03-19] MEDS: Calcium Carb/Vitamin D 1 TABLET Tablet PO (08:45)
[2024-03-19] MEDS: Furosemide 40 MG Tablet PO (08:46)
[2024-03-19] MEDS: Clopidogrel Bisulfate 75 MG Tablet PO (08:46)
[2024-03-19] MEDS: Zinc Sulfate 50 mg zinc (220 mg) ORAL capsule PO (08:46)
[2024-03-19] MEDS: Losartan Potassium 100 MG Tablet PO (08:46)
[2024-03-19] MEDS: Cholecalciferol (VIT D3) 25 MCG TABLET (1,000 UNITS) PO (08:46)
[2024-03-19] MEDS: Carvedilol 25 MG Tablet PO (08:46)
--- NOTE | 2024-03-19 10:12 | CASEMGMT ---
Patient has order for discharge. RN CM in to discuss needs at discharge, at bedside. Patient and deny needs or help at discharge. Patient and had no further questions or concerns.
== END 2024-03-19 09:30 | disposition home or self-care (01) ==
LOC: CLSP 11:58 → PCU 12:06
PROVIDERS: Admitting Provider Internal Medicine Cardiovascular Disease; PCP Student in an Organized Health Care Education/Training Program; Referring Provider Internal Medicine Cardiovascular Disease; Visit Provider Internal Medicine Cardiovascular Disease
DX: I25.118 Atherosclerotic heart disease of native coronary artery with other forms of angina pectoris (principal); E11.9 Type 2 diabetes mellitus without complications; I10 Essential (primary) hypertension; E78.5 Hyperlipidemia, unspecified; G47.33 Obstructive sleep apnea (adult) (pediatric); Z79.899 Other long term (current) drug therapy; Z79.02 Long term (current) use of antithrombotics/antiplatelets; Z79.82 Long term (current) use of aspirin; R53.83 Other fatigue
CPT/HCPCS: 36415; 80053; 85027; 92928; 93005; 93454; 96360; 96361; 99152; 99153; 99221; C1761; J7030; J7040; Q9967; A4216; C1725; C1769; C1874; C1887; C1894; C9600; G0378

== ENCOUNTER 2024-04-21 11:22 | Emergency (ER) | payer MEDICARE, SELFPAY ==
[2024-04-21 11:22] VITALS: BP 96/62; PULSE 57; RESP 16; TEMP 36.2; O2SAT 98
[2024-04-21 11:47] VITALS: BP 131/52
--- NOTE | 2024-04-21 11:59 | EKG12_ITS ---
Test Reason : Blood Pressure : / mmHG Vent. Rate : 053 BPM Atrial Rate : 053 BPM P-R Int : 204 ms QRS Dur : 088 ms QT Int : 456 ms P-R-T Axes : 043 -01 050 degrees QTc Int : 427 ms Sinus bradycardia Otherwise normal ECG Confirmed by SHAZIA CORNELIUS, ALENA ([id number]), editor book POLI FIGUEREDO ([id number]) on 04/23/2024 10:22:23 AM Referred By: Confirmed By:KAYLEEN MCCRAY MD
--- NOTE | 2024-04-21 12:01 | EX.ED.DYSGE1 ---
HPI History of Present Illness Chief Complaint: Hypotension Narrative Narrative: 88-year-old female past medical history of coronary artery disease with recent stenting, hypertension, presents with hypotension with a systolic blood pressure in the 80s, with lightheadedness. No chest pain or other symptoms. She states that yesterday she may have taken an extra clonidine. This was in the morning. She usually takes clonidine 0.2 mg twice a day. Today, she was sitting at her computer, around 10:00 she felt lightheaded. She had taken her clonidine this morning at 8 AM. She denies any chest pain or shortness of breath, no nausea or vomiting, no recent fevers or chills. She never had a blood pressure this low. She called the nurse, and was told to come to the emergency department for evaluation. [facility] Medical History Palpitations Dyspnea on exertion Elevated coronary artery calcium score History of hypertension Angina pectoris Coronary artery disease Carotid artery disease Irregular heart rate Fatigue Preoperative cardiovascular examination Exertional dyspnea History of small bowel obstruction History of carotid artery stenosis Essential hypertension Hyperlipidemia JOSIE on CPAP History of breast cancer Type 2 diabetes mellitus without complication Anxiety and depression Home Medications ?Medication ?Instructions ?Recorded ?Last Taken ?Type albuterol sulfate 90 mcg/actuation 2 puff inhalation Q6H PRN 08/23/19 Unknown History aerosol inhaler SHORTNESS OF BREATH aspirin 81 mg tablet,delayed 81 mg PO QHS HEART HEALTH 08/23/19 03/18/24 History release (Adult Low Dose Aspirin) cholecalciferol (vitamin D3) 25 1,000 unit PO DAILY supplement 08/23/19 03/17/24 History mcg (1,000 unit) tablet clonazepam 0.5 mg tablet 0.25 mg PO BID PRN ANXIETY 08/23/19 03/18/24 History yxzmiyoa-lub-ckgtt acid 0.4 1 tab PO DAILY SUPPLEMENT 08/23/19 03/17/24 History mg-lycopene 300 mcg-lutein 250 mcg tablet (Centrum Silver) carvedilol 25 mg tablet 25 mg PO BID HEART 08/27/19 03/18/24 History losartan 100 mg tablet 100 mg PO DAILY BLOOD PRESSURE 04/03/21 03/17/24 History nifedipine 60 mg tablet,extended 60 mg PO DAILY BLOOD PRESSURE 04/03/21 03/18/24 History release 24 hr calcium carbonate 600 mg-vitamin 1 cap PO DAILY supplement 08/08/23 03/17/24 History D3 5 mcg (200 unit) capsule zinc acetate 50 mg (zinc) capsule 50 mg PO DAILY SUPPLEMENT 08/28/23 03/17/24 History torsemide 20 mg tablet 20 mg PO DAILY FLUID 09/09/23 03/17/24 History clopidogrel 75 mg tablet 75 mg PO DAILY antiplatelet #90 10/07/23 03/18/24 Rx tabs rosuvastatin 10 mg tablet 10 mg PO QHS cholesterol #90 tabs 10/07/23 03/17/24 Rx citalopram 20 mg tablet 20 mg PO QDAY depression 02/27/24 03/17/24 History clonidine HCl 0.2 mg tablet 0.2 mg PO Q12H blood pressure 02/27/24 03/18/24 History furosemide 20 mg tablet 20 mg PO QDAY PRN edema 02/27/24 Unknown History magnesium 250 mg tablet 250 mg PO Q OTHER DAY SUPPLEMENT 02/27/24 03/17/24 History Allergy/AdvReac Type Severity Reaction Status Date / Time prednisone Allergy Intermediate anxious Verified 04/07/24 08:58 quinapril Allergy Intermediate cough Verified 04/07/24 08:58 simvastatin (From Zocor) Allergy Intermediate muscle pain Verified 04/07/24 08:58 Family History Father Myocardial infarction, Onset Age: 45 Mother Heart disease Diabetes Surgical History Stented coronary artery (03/18/24) History of back surgery History of total mastectomy of left breast History of tonsillectomy and adenoidectomy History of hysterectomy History of tubal ligation Social History Smoking Status: Never smoker alcohol intake: never substance use type: does not use caffeine: Yes Type: coffee Number of servings: 1 ROS ROS ED ROS Narrative Constitutional: No fever, no chills. Reported low systolic blood pressure in the 80s. HEENT: No sore throat. No neck pain. No loss of vision. No rhinorrhea. Cardiovascular: No chest pain. No palpitations. No pedal edema. Respiratory: No cough, no shortness of breath. Abdominal: No abdominal pain. No nausea. No vomiting. Genitourinary: No dysuria. No hematuria. Musculoskeletal: No myalgias. No arthralgias. Neurologic: No headaches. No dizziness. Positive lightheadedness and near syncope while seated at a computer. Skin: No rash. No change in color. Psychiatric: No depression. No anxiety. EXAM Physical Exam Narrative Exam Narrative: Afebrile. Vital signs noted. Initial soft blood pressure of 96/62. Repeat 131/52 during examination. HEENT: Normocephalic. Atraumatic. PERRL, EOMI. Neck soft and supple. No point tenderness or step off. Cardiovascular: Positive bradycardia no murmurs, rubs, or gallops appreciated. Respiratory: No tachypnea. Lungs clear to auscultation bilaterally. Gastrointestinal: Abdomen soft, nontender, with normoactive bowel sounds. No rebound or guarding. Neurological: Awake. Alert. Nonfocal, nonlateralizing. Skin: No rash. Normal color. No pallor. Musculoskeletal: No pedal edema. Full range of motion extremities. Const Vital Signs: 04/21/24 11:22 04/21/24 11:42 04/21/24 11:47 Temperature 97.2 F L Temperature Source Temporal Pulse Rate 57 L Respiratory Rate 16 Respiratory Effort Normal Respiratory Pattern Normal Blood Pressure 96/62 131/52 H Blood Pressure Mean 73 78 Pulse Ox 98 Oxygen Delivery Method Room Air [facility] Narrative Medical decision making narrative: The differential diagnosis is overmedication versus intravascular volume depletion versus dehydration. I have low suspicion for sepsis given that the patient is afebrile and not tachycardic. I will obtain basic laboratory work to look for anemia or dehydration. She was bolused normal saline 500 mL intravenously. She is awake and mentating well with slightly elevated systolic blood pressure of 131 currently. I reviewed her laboratory work and she has normal white count of 7.1, hemoglobin normal at 12.2 with platelet count normal at 244. I have low concern for sepsis. Electrolyte panel is grossly unremarkable except for slightly elevated BUN of 19 with creatinine 0.84. She did receive a bolus of normal saline 500 mL as stated previously. Upon repeat examination at approximately 12:50 PM, she feels improved. EKG obtained and interpreted by myself independently demonstrates sinus bradycardia at 53 bpm without ectopy or acute ST changes. No STEMI. Repeat blood pressure is 125 systolic on the monitor. She feels improved. I feel she can be discharged safely home with follow-up. She will keep a log of her blood pressures for her primary care provider. She may have taken too much clonidine yesterday. Additionally, she may have had more of an intravascular volume depletion. Return instructions to the emergency department were reviewed. Patient is comfortable with discharge. Disposition is discharged in stable condition. History & Record Review Discussion w/independent historian: Patient and Family Lab Data Attestation: I reviewed the patient's lab results. Labs: Laboratory Results - last 24 hr 04/21/24 12:09 WBC 7.1 RBC 4.15 L Hgb 12.2 Hct 36.9 L MCV 88.9 MCH 29.4 MCHC 33.1 RDW Std Deviation 42.4 RDW Coeff of Chastity 13.0 Plt Count 244 MPV 8.8 Immature Gran % (Auto) 0.400 Neut % (Auto) 47.2 Lymph % (Auto) 35.3 [place] % (Auto) 12.6 H Eos % (Auto) 3.9 Baso % (Auto) 0.6 Absolute Neuts (auto) 3.4 Absolute Lymphs (auto) 2.51 Nucleated RBC % 0 Sodium 136 Potassium 3.6 Chloride 100 Carbon Dioxide 32.0 Anion Gap 4 L BUN 19 H Creatinine 0.84 Est GFR (MDRD) Af Amer 82 Est GFR (MDRD) Non-Af 68 BUN/Creatinine Ratio 22.6 H Glucose 100 Calcium 9.2 Total Bilirubin 0.70 AST 30 ALT 45 Alkaline Phosphatase 71 Total Protein 7.2 Albumin 3.3 Globulin 3.9 Albumin/Globulin Ratio 0.8 L Discharge Plan Triage Chief Complaint: Hypotension ED Provider: Roger Peña Dx/Rx/DC Orders Clinical Impression: Transient hypotension Instructions: ED Low Blood Pressure, All Causes Prescriptions: No Action clonazepam 0.5 mg tablet 0.25 mg PO BID PRN (Reason: ANXIETY ) Centrum Silver 0.4-300-250 mg-mcg-mcg tablet 1 tab PO DAILY aspirin [Adult Low Dose Aspirin] 81 mg tablet,delayed release (DR/EC) 81 mg PO QHS cholecalciferol (vitamin D3) 1,000 unit (25 mcg) tablet 1,000 unit PO DAILY albuterol sulfate 90 mcg/actuation HFA aerosol inhaler 2 puff INHALATION Q6H PRN (Reason: SHORTNESS OF BREATH ) calcium carbonate-vitamin D3 600 mg-5 mcg (200 unit) capsule 1 cap PO DAILY magnesium 250 mg tablet 250 mg PO Q OTHER DAY nifedipine 60 mg tablet extended release 24hr 60 mg PO DAILY clopidogrel 75 mg tablet 75 mg PO DAILY Qty: 90 3RF rosuvastatin 10 mg tablet 10 mg PO QHS Qty: 90 3RF citalopram 20 mg tablet 20 mg PO QDAY furosemide 20 mg tablet 20 mg PO QDAY PRN (Reason: edema) clonidine HCl 0.2 mg tablet 0.2 mg PO Q12H zinc acetate 50 mg (zinc) capsule 50 mg PO DAILY carvedilol 25 mg tablet 25 mg PO BID losartan 100 mg tablet 100 mg PO DAILY torsemide 20 mg tablet 20 mg PO DAILY Primary Care Provider: Nico Gamboa Referrals: Nico Gamboa DO [Primary Care Provider] - 1-2 Days if not improving Print Language: Guyanese Disposition Disposition: Home, Self Care
[2024-04-21 12:14] LABS: Absolute Lymphocyte Count 2.51 X10^3/uL (0.83-4.51); Absolute Neutrophil Count 3.4 X10^3/uL (2.0-7.7); Basophil# 0.04 X10^3/uL; Basophil% 0.6 % (0-1); Eosinophil# 0.28 X10^3/uL; Eosinophils% 3.9 % (0-5); Hematocrit 36.9 % (37-47); Hemoglobin 12.2 g/dL (12.0-15.0); Lymphocyte # 2.51 X10^3/ul (0.83-4.51); Lymphocyte % 35.3 % (19-41); Mean Corp Hgb Conc 33.1 g/dL (32-36); Mean Corpuscular Hgb 29.4 pg (27.0-32.0); Mean Corpuscular Volume 88.9 fL (81-99); Mean Platelet Vol. 8.8 fl (6.2-12.0); Monocyte% 12.6 % (0-10); NRBC Flagged by Analyzer 0 % (0-5); Neutrophil # 3.36 X10^3/uL (2.7-7.7); Neutrophil % 47.2 % (47-70); Platelet Count 244 K/mm3 (150-450); RBC Distribution Width SD 42.4 fl (35.1-43.9); Red Blood Count 4.15 M/mm3 (4.2-5.4); White Blood Count 7.1 K/mm3 (4.4-11.0)
[2024-04-21] MEDS: 0.9% Normal Saline (500mL Bag) 500 ML 999 ML IV (12:19)
[2024-04-21 12:36] LABS: ALB/GLOB Ratio 0.8 RATIO (0.9-2.4); AST(SGOT) 30 U/L (15-37); Alanine Aminotransfer ALT/SGPT 45 U/L (13-56); Albumin, Serum 3.3 g/dL (3.2-5.0); Alkaline Phosphatase 71 U/L (45-117); Anion Gap 4 (5-15); BUN 19 mg/dL (7-18); BUN/Creat Ratio 22.6 RATIO (10-20); Calcium,Total 9.2 mg/dL (8.5-10.1); Chloride 100 mmol/L (98-107); Creatinine, Serum 0.84 mg/dL (0.55-1.02); EST Glomerular Filtration Rate 68 mL/min (>60); Est Glom Filt Rate - Afr Amer 82 mL/min (>60); Globulin 3.9 g/dL (2.2-4.2); Glucose 100 mg/dL (74-106); Potassium 3.6 mmol/L (3.5-5.1); Protein, Total 7.2 g/dL (6.4-8.2); Sodium Level 136 mmol/L (136-145)
[2024-04-21 12:57] VITALS: BP 125/51; PULSE 54; RESP 16; TEMP 36.2; O2SAT 98
== END 2024-04-21 12:58 | disposition home or self-care (01) ==
PROVIDERS: Emergency Provider Emergency Medicine; PCP Student in an Organized Health Care Education/Training Program; Visit Provider Emergency Medicine
DX: R03.1 Nonspecific low blood-pressure reading (principal); E11.9 Type 2 diabetes mellitus without complications; I25.10 Atherosclerotic heart disease of native coronary artery without angina pectoris; I10 Essential (primary) hypertension; E78.5 Hyperlipidemia, unspecified; Z95.5 Presence of coronary angioplasty implant and graft; Z90.710 Acquired absence of both cervix and uterus; Z98.51 Tubal ligation status; G47.33 Obstructive sleep apnea (adult) (pediatric); Z85.3 Personal history of malignant neoplasm of breast; Z79.82 Long term (current) use of aspirin
CPT/HCPCS: 80053; 85025; 93005; 99283; J7040; A4216

== ENCOUNTER → 2024-04-22 | Outpatient (CLI) | payer MEDICARE, SELFPAY ==
--- NOTE | 2024-04-22 13:56 | CDU_ITS ---
Reason For Study: lightheadedness Rt. Velocities/BP Lt. Velocities/BP Prox CCA 88.6/12.7 cm/sec. Prox CCA 123.5/13.9 cm/sec. Mid CCA 76.8/13.1 cm/sec. Mid CCA 123.5/15.7 cm/sec. Dist CCA 73.5/14.2 cm/sec. Dist CCA 110.7/15.7 cm/sec. Prox ICA 100.2/17.9 cm/sec. Prox ICA 96.1/15.7 cm/sec. Mid ICA 84.2/17.9 cm/sec. Mid ICA 103.4/13.9 cm/sec. Dist ICA 78.1/19.2 cm/sec. Dist ICA 77.6/14.9 cm/sec. Rt. ICA/CCA = 100.2/76.8=1.3. Lt. ICA/CCA = 103.4/123.5=0.8. Prox ECA 109.5/7.3 cm/sec. Prox ECA 99.7/4.7 cm/sec. Rt. Vert. 47.8/11.9 cm/sec. Lt. Vert. 47.9/10.6 cm/sec. Right Extracranial There is homogeneous, smooth atherosclerotic plaque noted in the right common carotid artery. There is heterogeneous, irregular atherosclerotic plaque noted in the right internal carotid artery. There is intimal thickening but no significant atherosclerotic plaque noted in the right external carotid artery. Antegrade flow is noted in the right vertebral artery. Left Extracranial There is intimal thickening but no significant atherosclerotic plaque noted in the left common carotid artery. There is heterogeneous, irregular atherosclerotic plaque noted in the left internal carotid artery. There is no significant atherosclerotic plaque noted in the left external carotid artery. Antegrade flow is noted in the left vertebral artery. Procedure Carotid Duplex 71034. This is a Carotid Duplex examination using B-mode, color flow and specral Doppler. Exam performed in department. VL/Carotid Duplex Ultrasound Interpretation Summary Mild (<50%) stenosis right extracranial internal carotid. Mild (<50%) stenosis left extracranial internal carotid. Patent and antegrade vertebrals bilaterally. Ordering Physician: Dede Hernandez Referring Physician: Nico Gamboa Performed By: Estefania Taylor RDCS, RVT
== END | disposition home or self-care (01) ==
LOC: CVS 13:55
PROVIDERS: PCP Student in an Organized Health Care Education/Training Program; Referring Provider Internal Medicine Cardiovascular Disease; Visit Provider Internal Medicine Cardiovascular Disease
DX: R42 Dizziness and giddiness (principal); I77.9 Disorder of arteries and arterioles, unspecified; E78.5 Hyperlipidemia, unspecified
CPT/HCPCS: 93880

== ENCOUNTER → 2024-11-25 | Outpatient (CLI) | payer MEDICARE, SELFPAY ==
--- NOTE | 2024-11-25 08:52 | ECHODONC_ITS ---
Reason For Study Reason For Study: DYSPNEA Procedure This was a 2D Doppler, Color Flow transthoracic echocardiogram. Myocardial strain analysis was performed in this exam to aid in the assessment of cardiac function. The study was technically difficult. Due to left breast mastectomy. Exam performed in department. Left Ventricle Normal LV size and thickness. Normal LV systolic function. Estimated LVEF 65%. Diastolic function indeterminate. Right Ventricle Normal right ventricle. Atria The left and right atria are normal. Mitral Valve Severe mitral annular calcification. Trace to mild mitral valve regurgitation. Tricuspid Valve Trace mitral valve regurgitation. Normal pulmonary artery systolic pressures. Aortic Valve Moderate to severely calcified aortic valve leaflets. Aortic valve sclerosis without stenosis. Pulmonic Valve The pulmonic valve is not well visualized. Great Vessels Normal sized aortic root. Pericardium/Pleural No pericardial effusion. MMode/2D Measurements & Calculations LVIDd: 3.8 cm IVSd: 0.96 cm Ao root diam: 3.5 cm LVIDs: 3.2 cm LVPWd: 0.96 cm RVDd: 2.7 cm FS: 17.2 % LAV(MOD-bp): 35.3 ml LVAd ap4: 19.6 cm2 SV(MOD-sp4): 37.0 ml LAV(MOD-bp) Indexed: 21.4 ml/m2 LVLd ap4: 6.2 cm SI(MOD-sp4): 22.4 ml/m2 LAV(MOD-sp2): 30.1 ml EDV(MOD-sp4): 51.8 ml LAV(MOD-sp4): 37.1 ml EDV(sp4-el): 52.4 ml LVAs ap4: 9.5 cm2 LVLs ap4: 5.2 cm ESV(MOD-sp4): 14.8 ml ESV(sp4-el): 14.8 ml EF(MOD-sp4): 71.4 % EF(sp4-el): 71.8 % SV(sp4-el): 37.6 ml LA A4 area: 14.4 cm2 LA dimension(2D): 3.3 cm RA A4 area: 10.1 cm2 TAPSE: 1.9 cm Time Measurements MV dec time: 0.37 sec Doppler Measurements & Calculations MV E max vladimir: 78.0 cm/sec Lat Peak E' Vladimir: 5.5 cm/sec Med Peak E' Vladimir: 4.8 cm/sec MV A max vladimir: 117.4 cm/sec E/E' lat: 14.2 E/E' med: 16.1 MV E/A: 0.66 MV V2 max: 135.9 cm/sec MV P1/2t max vladimir: 90.6 cm/sec Ao V2 max: 173.4 cm/sec MV max P.4 mmHg MV P1/2t: 106.8 msec Ao max P.0 mmHg MV V2 mean: 68.2 cm/sec Ao V2 mean: 122.6 cm/sec MV mean P.2 mmHg MV dec slope: 248.5 cm/sec2 Ao mean P.6 mmHg MV V2 VTI: 33.2 cm MVA(P1/2t): 2.1 cm2 Ao V2 VTI: 35.9 cm AV (velocity ratio): 0.57 LV V1 max: 93.7 cm/sec PA V2 max: 84.0 cm/sec TR max vladimir: 229.9 cm/sec LV V1 max P.5 mmHg TR max P.1 mmHg LV V1 mean P.0 mmHg LV V1 mean: 67.8 cm/sec LV V1 VTI: 20.6 cm ECHO/ONC Echo Complete Interpretation Summary Normal LV size and thickness. Normal LV systolic function. Estimated LVEF 65%. Diastolic function indeterminate. Severe mitral annular calcification. Trace to mild mitral valve regurgitation. Moderate to severely calcified aortic valve leaflets. Aortic valve sclerosis wi thout stenosis. Ordering Physician: Dede Hernandez Referring Physician: Nico Gamboa Performed By: Estefania Taylor, RHEA, RVT
== END | disposition home or self-care (01) ==
PROVIDERS: PCP Student in an Organized Health Care Education/Training Program; Referring Provider Internal Medicine Cardiovascular Disease; Visit Provider Internal Medicine Cardiovascular Disease
DX: R06.09 Other forms of dyspnea (principal); R53.83 Other fatigue; R06.02 Shortness of breath
CPT/HCPCS: 93306; 93356

== ENCOUNTER → 2025-02-21 | Outpatient (CLI) | payer MEDICARE, SELFPAY ==
--- NOTE | 2025-02-21 14:57 | RAD_ITS ---
PROCEDURE: HAND MIN 3 VIEWS 02/21/2025 REASON FOR EXAM: OSTEOARTHRITIS OF BOTH HANDS TECHNIQUE: 3 view(s) of the right hand COMPARISON: None. FINDINGS: Mild osteopenia of the visualized bones. Moderate to severe degenerative joint disease of the 1st carpometacarpal joint. Mild degenerative joint disease of the metacarpophalangeal joints. Moderate to severe degenerative joint disease of the interphalangeal joint of the thumb, proximal and distal interphalangeal joints of the fingers, more prominent in the 2nd, 3rd and 4th fingers. No fracture or dislocation is seen. No lytic or blastic bone lesion is identified. RAD/Hand Min 3 Views IMPRESSION: Degenerative joint disease. Reading Location: [facility]
--- NOTE | 2025-02-21 14:57 | RAD_ITS ---
PROCEDURE: HAND MIN 3 VIEWS 02/21/2025 REASON FOR EXAM: OSTEOARTHRITIS OF BOTH HANDS TECHNIQUE: 3 view(s) of the left hand COMPARISON: None. FINDINGS: Mild osteopenia of the visualized bones. Moderate to severe degenerative joint disease of the 1st carpometacarpal joint. Mild degenerative joint disease of the metacarpophalangeal joints. Moderate to severe degenerative joint disease of the interphalangeal joint of the thumb, proximal and distal interphalangeal joints of the fingers, more prominent in the 2nd, 3rd and 4th fingers. No fracture or dislocation is seen. No lytic or blastic bone lesion is identified. RAD/Hand Min 3 Views IMPRESSION: Degenerative joint disease. Reading Location: [facility]
[2025-02-21 18:05] LABS: Absolute Lymphocyte Count 3.59 X10^3/uL (0.83-4.51); Absolute Neutrophil Count 2.7 X10^3/uL (2.0-7.7); Basophil# 0.03 X10^3/uL; Basophil% 0.4 % (0-1); Eosinophil# 0.32 X10^3/uL; Eosinophils% 4.2 % (0-5); Hematocrit 38.7 % (37-47); Lymphocyte # 3.59 X10^3/ul (0.83-4.51); Lymphocyte % 47.4 % (19-41); Mean Corp Hgb Conc 33.6 g/dL (32-36); Mean Corpuscular Hgb 30.3 pg (27.0-32.0); Mean Corpuscular Volume 90.2 fL (81-99); Mean Platelet Vol. 8.8 fl (6.2-12.0); Monocyte# 0.89 X10^3/uL; Monocyte% 11.7 % (0-10); NRBC Flagged by Analyzer 0 % (0-5); Neutrophil # 2.73 X10^3/uL (2.7-7.7); Platelet Count 398 K/mm3 (150-450); RBC Distribution Width CV 13.1 % (11.6-14.6); RBC Distribution Width SD 43.3 fl (35.1-43.9); Red Blood Count 4.29 M/mm3 (4.2-5.4); White Blood Count 7.6 K/mm3 (4.4-11.0)
[2025-02-21 18:50] LABS: Erythrocyte Sedimentation Rate 39 mm/hr (0-30)
[2025-02-21 18:55] LABS: Hepatitis B Surface Antibody Nonreactive
[2025-02-21 19:05] LABS: ALB/GLOB Ratio 1.4 RATIO (0.9-2.4); AST(SGOT) 31 U/L (<=31); Alanine Aminotransfer ALT/SGPT 32 U/L (<=34); Albumin, Serum 4.5 g/dL (3.4-4.8); Alkaline Phosphatase 72 U/L (35-104); Anion Gap 15 (5-15); BUN 13 mg/dL (4-19); BUN/Creat Ratio 17.5 RATIO (10-20); Calcium,Total 9.9 mg/dL (7.6-11.0); Carbon Dioxide 26.4 mmol/L (21.0-32.0); Chloride 97 mmol/L (98-108); Creatinine, Serum 0.76 mg/dL (0.70-1.20); EST Glomerular Filtration Rate 75 (>60); Globulin 3.1 g/dL (2.2-4.2); Glucose 81 mg/dL (70-99); Hepatitis B Surface Antigen Nonreactive (Nonreactive); Hepatitis C Antibody Nonreactive (Nonreactive); Potassium 3.6 mmol/L (3.3-5.1); Protein, Total 7.6 g/dL (5.9-8.4); Sodium Level 138 mmol/L (133-145); Total Bilirubin 0.56 mg/dL (0.00-1.30)
[2025-02-21 19:15] LABS: CRP 5.56 mg/L (0.0-3.0); Rheumatoid Factor < 10.0 IU/mL (<15)
[2025-02-23 12:08] LABS: CCP IgG Antibodies 17 units (0-19)
== END | disposition home or self-care (01) ==
LOC: MTLAB 14:56
PROVIDERS: PCP Student in an Organized Health Care Education/Training Program; Referring Provider Internal Medicine Rheumatology; Visit Provider Internal Medicine Rheumatology
DX: M06.4 Inflammatory polyarthropathy (principal); M47.897 Other spondylosis, lumbosacral region; M19.041 Primary osteoarthritis, right hand; M19.042 Primary osteoarthritis, left hand
CPT/HCPCS: 36415; 73130; 80053; 85025; 85652; 86140; 86200; 86431; 86706; 86803; 87340

== ENCOUNTER → 2025-06-01 | Outpatient (CLI) | payer MEDICARE, SELFPAY ==
[2025-06-01 08:30] LABS: Hematocrit 36.1 % (37-47); Hemoglobin 12.1 g/dL (12.0-15.0); Immature Granulocytes Count 0.020 X10^3/uL (0.0-0.0); Mean Corp Hgb Conc 33.5 g/dL (32-36); Mean Corpuscular Volume 92.6 fL (81-99); Mean Platelet Vol. 8.6 fl (6.2-12.0); NRBC Flagged by Analyzer 0 % (0-5); Platelet Count 321 K/mm3 (150-450); RBC Distribution Width CV 14.6 % (11.6-14.6); RBC Distribution Width SD 49.1 fl (35.1-43.9); Red Blood Count 3.90 M/mm3 (4.2-5.4); White Blood Count 9.1 K/mm3 (4.4-11.0)
[2025-06-01 09:02] LABS: Anion Gap 12 (5-15); BUN 18 mg/dL (4-19); BUN/Creat Ratio 20.6 RATIO (10-20); Calcium,Total 9.2 mg/dL (7.6-11.0); Carbon Dioxide 28.2 mmol/L (21.0-32.0); Chloride 99 mmol/L (98-108); Glucose 162 mg/dL (70-99); Potassium 4.2 mmol/L (3.3-5.1)
[2025-06-01 09:04] LABS: Pro- Brain NATRIURETIC PEPTIDE 168 pg/mL (<=1800)
== END | disposition home or self-care (01) ==
LOC: LAB 08:19
PROVIDERS: PCP Student in an Organized Health Care Education/Training Program; Referring Provider Nurse Practitioner Family; Visit Provider Nurse Practitioner Family
DX: R06.02 Shortness of breath (principal)
CPT/HCPCS: 36415; 80048; 83880; 85025

== ENCOUNTER → 2025-06-30 | Outpatient (CLI) | payer MEDICARE, SELFPAY | END | disposition home or self-care (01) | LOC: CVS 07:04 | PROVIDERS: PCP Student in an Organized Health Care Education/Training Program; Referring Provider Nurse Practitioner Family; Visit Provider Nurse Practitioner Family | DX: R06.02 Shortness of breath (principal); Z95.5 Presence of coronary angioplasty implant and graft | CPT/HCPCS: 78452; 93017; A9500; A4216; J2785 ==

== ENCOUNTER → 2025-08-10 | Outpatient (CLI) | payer MEDICARE, SELFPAY ==
--- NOTE | 2025-08-10 09:39 | NEURO ---
NCS and/or EMG Patient Report Ordering Doctor: Arthur Mejia DATE OF SERVICE: 08/10/25 Martha presents complaints of numbness and tingling in both hands, worse on the right side. Electrodiagnostic findings: Right median motor nerve demonstrates prolonged distal latency with normal amplitude and reduced conduction velocity. Left median motor nerve demonstrates prolonged distal latency with normal amplitude and reduced conduction velocity. Ulnar motor response within normal limits bilaterally. Prolonged median F?wave bilaterally. Prolonged median sensory latency at the wrist bilaterally. Decreased median sensory conduction velocity noted bilaterally. Needle EMG testing was performed upper limbs. All muscles tested showed no evidence of denervation with normal motor unit action potentials. Electrodiagnostic impression: This is an abnormal study in the upper limbs 1. Electrodiagnostic findings suggestive of bilateral median mononeuropathy. This is consistent with a moderate left carpal tunnel syndrome and a moderate to advanced right carpal tunnel syndrome. Multi Select Codes Neurology Neurology Interp Codes: 71421-99 Musc test done w/n test comp (interp) (2) and 49976-77 Nrv cndj test 9-10 studies (interp)
== END | disposition home or self-care (01) ==
LOC: PSN 07:03
PROVIDERS: PCP Student in an Organized Health Care Education/Training Program; Referring Provider Orthopaedic Surgery; Visit Provider Orthopaedic Surgery
DX: G56.03 Carpal tunnel syndrome, bilateral upper limbs (principal)
CPT/HCPCS: 95886; 95911